=== PATIENT | male | born 1950 | race Caucasian/White ===

== ENCOUNTER → 2016-07-26 | Outpatient (REF) | payer OTHER ==
[~2016-07-26] MED LIST: /ESOM40CA PO; /HCTZ25TA PO; ACET-654 PO; AUGM875T27 PO; BISO10TA3 PO; BISO10TA6 PO; CARA1TAB2 PO; CIPR500T89 PO; COQ-10CA PO; DIGO0.12 PO; DIGO25TA PO; FLAG500T PO; LISI10TA4 PO; LISI5TAB PO; LOVA1CAP16 PO; MULTCAP PO; MULTTAB4 PO; NEUR600T PO; NEXI40GR PO; PARO40TA PO; PARO40TA2 PO; PERCOCET PO; PRAD150C PO; PROBCAP4 PO; ROXI1TAB2 PO; SYNT175T2 PO; TYLE325T5 PO; VITA100T86 PO; mylicon PO
[2016-07-26 12:07] LABS: BASO % 0.6 % (0.0-1.0); EOS # 0.1 K/mm3 (0.0-0.50); LARGE UNSTAINED CELL # 0.2 K/mm3 (0.0-0.4); LARGE UNSTAINED CELL % 3.3 % (0.0-4.0); LYMPH # 3.3 K/mm3 (1.5-4.5); LYMPH % 48.3 % (24.0-44.0); MEAN CORPUSCULAR HEMOGLOBIN 28.1 pg (27.0-33.0); MEAN CORPUSCULAR HGB CONC 33.5 g/dl (32.0-36.5); MEAN CORPUSCULAR VOLUME 83.9 fl (80.0-96.0); MONO # 0.7 K/mm3 (0.0-0.8); MONO % 11.2 % (0.0-5.0); NEUTROPHILS # 2.2 K/mm3 (1.8-7.7); NEUTROPHILS % 34.5 % (36.0-66.0); PLATELET COUNT, AUTOMATED 232 k/mm3 (150-450); RED CELL DISTRIBUTION WIDTH 13.2 % (11.5-14.5); WHITE BLOOD COUNT 6.4 K/mm3 (4.0-10.0)
[2016-07-26 12:26] LABS: ALBUMIN/GLOBULIN RATIO 1.14 (1.00-1.93); ALKALINE PHOSPHATASE 65 U/L (45-117); ALT/SGPT 71 U/L (12-78); ANION GAP 11 MEQ/L (8-16); AST/SGOT 54 U/L (15-37); BILIRUBIN,TOTAL 0.7 MG/DL (0.2-1.0); BLOOD UREA NITROGEN 11 MG/DL (7-18); CALCIUM LEVEL 8.2 MG/DL (8.8-10.2); CARBON DIOXIDE LEVEL 27 MEQ/L (21-32); CHLORIDE LEVEL 101 MEQ/L (98-107); CHOLESTEROL LEVEL 148 MG/DL (<200); CREATININE FOR GFR 0.95 MG/DL (0.70-1.30); FREE T4 1.54 NG/DL (0.76-1.46); GLOMERULAR FILTRATION RATE > 60.0 (>49); GLUCOSE, FASTING 114 MG/DL (80-110); POTASSIUM SERUM 3.9 MEQ/L (3.5-5.1); SODIUM LEVEL 139 MEQ/L (136-145); TOTAL PROTEIN 7.5 GM/DL (6.4-8.2); TRIGLYCERIDES LEVEL 196 MG/DL (<150)
== END ==
LOC: M SFHCCLAY 06:51
PROVIDERS: ATTEND Family Medicine
DX: K50.119 Crohn's disease of large intestine with unspecified complications (principal); E03.9 Hypothyroidism, unspecified; E78.2 Mixed hyperlipidemia; Z12.5 Encounter for screening for malignant neoplasm of prostate

== ENCOUNTER → 2016-07-27 | Outpatient (CLI) | payer OTHER ==
--- NOTE | 2016-07-27 12:25 | REP ---
ABDOMINAL SERIES: Supine and erect views of the abdomen demonstrate no free air and no definite evidence of small bowel obstruction. Air is scattered throughout the GI tract. Air is seen in nondistended small bowel loops which do not appear to be significantly dilated. Multiple phleboliths are seen in the pelvis. Chronic sclerotic density in a left iliac bone probably represents a bone island, unchanged since prior study of 12/19/2012. Metallic clips are seen in the right upper quadrant. An accompanying view of the chest demonstrates no acute infiltrate. Heart is normal in size. IMPRESSION: Nonspecific bowel gas pattern with no compelling evidence for small bowel obstruction. No free air. Lungs are clear.
== END ==
LOC: M CLY 11:27
PROVIDERS: ATTEND Surgery
DX: G89.18 Other acute postprocedural pain (principal)

== ENCOUNTER → 2016-08-08 | Outpatient (REF) | payer OTHER | LOC: M LAB REF 11:17 | PROVIDERS: ATTEND Internal Medicine Gastroenterology | DX: A09 Infectious gastroenteritis and colitis, unspecified (principal) ==

== ENCOUNTER → 2017-03-01 | Outpatient (REF) | payer OTHER ==
[~2017-03-01] MED LIST changes: -ACET-654 PO; +ACET1TAB17 PO; +AUGM875T28 PO; +CIPR-249 PO; -CIPR500T89 PO
[2017-03-01 12:10] LABS: BASO # 0.1 10^3/uL (0.0-0.2); BASO % 0.6 % (0.0-1.0); EOS # 0.3 10^3/uL (0.0-0.50); IMMATURE GRANULOCYTE % 0.2 % (0-0); LYMPH % 47.3 % (24.0-44.0); MEAN CORPUSCULAR HEMOGLOBIN 30.2 pg (27.0-33.0); MEAN CORPUSCULAR HGB CONC 34.1 g/dl (32.0-36.5); MEAN CORPUSCULAR VOLUME 88.5 fl (80.0-96.0); MONO # 0.8 10^3/uL (0.0-0.8); MONO % 9.2 % (0.0-5.0); NEUTROPHILS # 3.3 10^3/uL (1.8-7.7); NEUTROPHILS % 39.7 % (36.0-66.0); PLATELET COUNT, AUTOMATED 259 10^3/uL (150-450); RED CELL DISTRIBUTION WIDTH 11.9 % (11.5-14.5); WHITE BLOOD COUNT 8.4 10^3/uL (4.0-10.0)
[2017-03-01 12:47] LABS: ALBUMIN 3.9 GM/DL (3.2-5.2); ALBUMIN/GLOBULIN RATIO 1.22 (1.00-1.93); ALKALINE PHOSPHATASE 54 U/L (45-117); ALT/SGPT 46 U/L (12-78); ANION GAP 7 MEQ/L (8-16); AST/SGOT 31 U/L (7-37); BILIRUBIN,TOTAL 0.4 MG/DL (0.2-1.0); BLOOD UREA NITROGEN 14 MG/DL (7-18); CALCIUM LEVEL 8.5 MG/DL (8.8-10.2); CARBON DIOXIDE LEVEL 32 MEQ/L (21-32); CHLORIDE LEVEL 102 MEQ/L (98-107); CHOLESTEROL LEVEL 182 MG/DL (<200); CREATININE FOR GFR 0.99 MG/DL (0.70-1.30); FREE T4 1.04 NG/DL (0.76-1.46); GLOMERULAR FILTRATION RATE > 60.0 (>49); GLUCOSE, FASTING 103 MG/DL (80-110); POTASSIUM SERUM 4.2 MEQ/L (3.5-5.1); SODIUM LEVEL 141 MEQ/L (136-145); TOTAL PROTEIN 7.1 GM/DL (6.4-8.2); TRIGLYCERIDES LEVEL 403 MG/DL (<150)
== END ==
LOC: M SFHCCLAY 08:25
PROVIDERS: ATTEND Family Medicine
DX: K50.119 Crohn's disease of large intestine with unspecified complications (principal); E03.9 Hypothyroidism, unspecified; E78.2 Mixed hyperlipidemia

== ENCOUNTER → 2017-10-10 | Outpatient (REF) | payer MEDICARE, OTHER ==
[2017-10-10 12:13] LABS: BASO # 0.1 10^3/uL (0.0-0.2); BASO % 0.8 % (0.0-1.0); EOS # 0.2 10^3/uL (0.0-0.50); EOS % 3.6 % (0.0-3.0); HEMATOCRIT 39.3 % (42.0-52.0); HEMOGLOBIN 13.3 g/dl (13.5-17.5); IMMATURE GRANULOCYTE % 0.2 % (0-3.0); LYMPH # 3.1 10^3/uL (1.5-4.5); LYMPH % 49.3 % (24.0-44.0); MEAN CORPUSCULAR HEMOGLOBIN 30.2 pg (27.0-33.0); MEAN CORPUSCULAR HGB CONC 33.8 g/dl (32.0-36.5); MEAN CORPUSCULAR VOLUME 89.1 fl (80.0-96.0); MONO # 0.6 10^3/uL (0.0-0.8); MONO % 9.6 % (0.0-5.0); NEUTROPHILS # 2.3 10^3/uL (1.8-7.7); NEUTROPHILS % 36.5 % (36.0-66.0); PLATELET COUNT, AUTOMATED 226 10^3/uL (150-450); RED BLOOD COUNT 4.41 10^6/uL (4.30-6.10); RED CELL DISTRIBUTION WIDTH 11.9 % (11.5-14.5); WHITE BLOOD COUNT 6.4 10^3/uL (4.0-10.0)
[2017-10-10 12:57] LABS: ALBUMIN 3.6 GM/DL (3.2-5.2); ALBUMIN/GLOBULIN RATIO 1.03 (1.00-1.93); ALKALINE PHOSPHATASE 70 U/L (45-117); ALT/SGPT 65 U/L (12-78); ANION GAP 9 MEQ/L (8-16); AST/SGOT 47 U/L (7-37); BILIRUBIN,TOTAL 0.3 MG/DL (0.2-1.0); BLOOD UREA NITROGEN 12 MG/DL (7-18); CALCIUM LEVEL 7.9 MG/DL (8.8-10.2); CARBON DIOXIDE LEVEL 29 MEQ/L (21-32); CHLORIDE LEVEL 106 MEQ/L (98-107); CHOLESTEROL LEVEL 136 MG/DL (<200); CHOLESTEROL RISK RATIO 3.487 (<5); CREATININE FOR GFR 0.88 MG/DL (0.70-1.30); GLOMERULAR FILTRATION RATE > 60.0 (>49); GLUCOSE, FASTING 92 MG/DL (70-100); HDL CHOLESTEROL 39 MG/DL (>40); LDL CHOLESTEROL 78.4 MG/DL (<100); NON-HDL-C 97 MG/DL; POTASSIUM SERUM 4.5 MEQ/L (3.5-5.1); PSA SCREENING 0.81 NG/ML (< 4.0); SODIUM LEVEL 144 MEQ/L (136-145); TOTAL PROTEIN 7.1 GM/DL (6.4-8.2); TRIGLYCERIDES LEVEL 93 MG/DL (<150)
== END ==
LOC: M SFHCCLAY 08:59
DX: Z12.5 Encounter for screening for malignant neoplasm of prostate (principal); E78.2 Mixed hyperlipidemia; I11.9 Hypertensive heart disease without heart failure; K51.818 Other ulcerative colitis with other complication; E89.0 Postprocedural hypothyroidism
CPT/HCPCS: 84443

== ENCOUNTER → 2018-05-11 | Outpatient (REF) | payer MEDICARE, OTHER ==
[~2018-05-11] MED LIST changes: -ACET1TAB17 PO; +ACET1TAB55 PO
[2018-05-11 13:10] LABS: ALT/SGPT 54 U/L (12-78); BILIRUBIN,TOTAL 0.3 MG/DL (0.2-1.0); BLOOD UREA NITROGEN 15 MG/DL (7-18); CALCIUM LEVEL 8.2 MG/DL (8.8-10.2); CARBON DIOXIDE LEVEL 29 MEQ/L (21-32); CHLORIDE LEVEL 101 MEQ/L (98-107); CREATININE FOR GFR 0.95 MG/DL (0.70-1.30); GLOMERULAR FILTRATION RATE > 60.0 (>49); GLUCOSE, FASTING 106 MG/DL (70-100); POTASSIUM SERUM 4.2 MEQ/L (3.5-5.1); SODIUM LEVEL 139 MEQ/L (136-145); TOTAL PROTEIN 7.7 GM/DL (6.4-8.2)
== END ==
LOC: M SFHCCLAY 08:10
PROVIDERS: ATTEND Family Medicine
DX: I10 Essential (primary) hypertension (principal); E03.9 Hypothyroidism, unspecified

== ENCOUNTER → 2018-06-18 | Outpatient (REF) | payer MEDICARE, OTHER | LOC: M SFHCCLAY 10:40 | PROVIDERS: ATTEND Family Medicine | DX: E89.0 Postprocedural hypothyroidism (principal) ==

== ENCOUNTER → 2018-11-06 | Outpatient (REF) | payer MEDICARE, OTHER ==
[~2018-11-06] MED LIST changes: -/ESOM40CA PO; -/HCTZ25TA PO; -BISO10TA3 PO; +BISO10TA4 PO; +HYDR-3644 PO; +NEXI1CAP3 PO; +OXYC1TAB23 PO; +PRAD150C6 PO
[2018-11-06 13:02] LABS: ALBUMIN 3.7 GM/DL (3.2-5.2); ALT/SGPT 49 U/L (12-78); BILIRUBIN,TOTAL 0.4 MG/DL (0.2-1.0); BLOOD UREA NITROGEN 12 MG/DL (7-18); CALCIUM LEVEL 7.9 MG/DL (8.8-10.2); CARBON DIOXIDE LEVEL 27 MEQ/L (21-32); CHLORIDE LEVEL 106 MEQ/L (98-107); CHOLESTEROL LEVEL 141 MG/DL (<200); CREATININE FOR GFR 0.86 MG/DL (0.70-1.30); GLOMERULAR FILTRATION RATE > 60.0 (>49); GLUCOSE, FASTING 100 MG/DL (70-100); HDL CHOLESTEROL 37 MG/DL (>40); LDL CHOLESTEROL 83 MG/DL (<100); NON-HDL-C 104 MG/DL; POTASSIUM SERUM 3.7 MEQ/L (3.5-5.1); SODIUM LEVEL 142 MEQ/L (136-145); THYROID STIMULATING HORMONE 0.072 uIU/ML (0.358-3.740); TOTAL PROTEIN 7.3 GM/DL (6.4-8.2); TRIGLYCERIDES LEVEL 107 MG/DL (<150)
== END ==
LOC: M SFHCCLAY 08:31
PROVIDERS: ATTEND Family Medicine
DX: I11.9 Hypertensive heart disease without heart failure (principal); E78.2 Mixed hyperlipidemia; E89.0 Postprocedural hypothyroidism; Z12.5 Encounter for screening for malignant neoplasm of prostate
CPT/HCPCS: 80053; 80061; 84443; G0103; G0463

== ENCOUNTER → 2018-11-07 | Outpatient (CLI) | payer MEDICARE, OTHER ==
[~2018-11-07] MED LIST changes: +BISO10TA3 PO; -BISO10TA4 PO
--- NOTE | 2018-11-07 08:41 | REP ---
Thoracic spine three views: Comparison is a PA and lateral chest dated 04/29/2014. Vertebral body heights, interspacing alignment are normal and unchanged. There are bridging osteophytes anteriorly at the mid thoracic spine as an interval change compatible with mid thoracic spine. Multilevel degenerative disc disease. The pedicles are unremarkable. Impression: Mid thoracic spine multilevel degenerative disc disease. Otherwise, negative thoracic spine. Electronically Signed by Saji Laughlin MD 11/07/2018 08:32 A
== END ==
LOC: M CLY 08:09
PROVIDERS: ATTEND Family Medicine
DX: M51.24 Other intervertebral disc displacement, thoracic region (principal)

== ENCOUNTER 2018-11-29 22:47 | Emergency (ER) | payer MEDICARE, OTHER ==
[~2018-11-29] VITALS: Ht 162.6 cm; Wt 86.0 kg
[~2018-11-29 22:47] MED LIST changes: -BISO10TA3 PO; +BISO10TA4 PO
[2018-11-29] MEDS ORDERED: METOPROLOL 5 MG/5 ML VIAL ONE (22:48)
[2018-11-29] MEDS ORDERED: METOPROLOL TART 25 MG TABLET ONE (22:48)
[2018-11-29] MEDS ORDERED: NITROGLYCERIN 2% OINT 1 GM *U/D* PKT As Ordered ONE (22:57)
[2018-11-29] MEDS ORDERED: ASPIRIN 81 MG CHEW TABLET PO ONE (23:00)
[2018-11-29 23:02] LABS: BASO % 0.5 % (0.0-1.0); EOS # 0.2 10^3/uL (0.0-0.50); EOS % 2.1 % (0.0-3.0); HEMATOCRIT 36.2 % (42.0-52.0); HEMOGLOBIN 11.3 g/dl (13.5-17.5); LYMPH # 2.7 10^3/uL (1.5-4.5); LYMPH % 33.6 % (24.0-44.0); MEAN CORPUSCULAR HEMOGLOBIN 24.9 pg (27.0-33.0); MEAN CORPUSCULAR HGB CONC 31.2 g/dl (32.0-36.5); MEAN CORPUSCULAR VOLUME 79.7 fl (80.0-96.0); MONO # 0.6 10^3/uL (0.0-0.8); NEUTROPHILS # 4.5 10^3/uL (1.8-7.7); NEUTROPHILS % 56.6 % (36.0-66.0); PLATELET COUNT, AUTOMATED 268 10^3/uL (150-450); RED BLOOD COUNT 4.54 10^6/uL (4.30-6.10)
[2018-11-29 23:13] LABS: INR 1.29; PROTHROMBIN TIME 15.8 SECONDS (11.8-14.0)
[2018-11-29 23:30] LABS: ALBUMIN 3.3 GM/DL (3.2-5.2); ALT/SGPT 43 U/L (12-78); BILIRUBIN,TOTAL 0.2 MG/DL (0.2-1.0); BLOOD UREA NITROGEN 10 MG/DL (7-18); CALCIUM LEVEL 7.5 MG/DL (8.8-10.2); CARBON DIOXIDE LEVEL 27 MEQ/L (21-32); CHLORIDE LEVEL 107 MEQ/L (98-107); CK-MB VALUE MASS 2.8 NG/ML (<3.6); CPK CREATINE PHOSPHOKINASE 187 U/L (39-308); CREATININE FOR GFR 0.97 MG/DL (0.70-1.30); GLOMERULAR FILTRATION RATE > 60.0 (>49); GLUCOSE, FASTING 149 MG/DL (70-100); LIPASE 229 U/L (73-393); NT-PRO BNP 367 PG/ML (<125); POTASSIUM SERUM 3.3 MEQ/L (3.5-5.1); SODIUM LEVEL 146 MEQ/L (136-145); TOTAL PROTEIN 6.6 GM/DL (6.4-8.2); TROPONIN I 0.08 NG/ML (< 0.10)
[2018-11-29] MEDS: METOPROLOL 5 MG/5 ML VIAL IV SCH ×3 (23:39→23:52)
[2018-11-29] MEDS ORDERED: FUROSEMIDE 40 MG/4 ML VIAL (J1940) IV ONE (23:45)
[2018-11-29] MEDS ORDERED: NITROGLYCERIN 2% OINT 1 GM *U/D* PKT TOP ONE (23:45)
[2018-11-29] MEDS ORDERED: HYDR12.55 PO (23:54)
[2018-11-30 00:09] VITALS: BP 125/73
[2018-11-30 00:12] VITALS: BP 125/73
[2018-11-30] MEDS ORDERED: METOPROLOL TART 25 MG TABLET PO ONE (00:15)
--- NOTE | 2018-11-30 09:08 | REP ---
PORTABLE CHEST X-RAY: Sitting AP view. HISTORY: Chest pain. COMPARISON CHEST X-RAY: July 27, 2016. FINDINGS: EKG monitoring electrodes and oxygen delivery tubing are seen. There is fissural thickening. Heart is not felt to be enlarged. There is increased density above the minor fissure and I cannot exclude an early right upper lobe infiltrate. Pleural angles are sharp. IMPRESSION: Possible right upper lobe infiltrate. Fissural thickening on the right. Otherwise negative. Electronically Signed by Sonny Arriola MD 11/30/2018 09:20 A
== END 2018-11-30 00:15 | disposition short-term general hospital (02) ==
LOC: M ED 22:47
DX: I21.3 ST elevation (STEMI) myocardial infarction of unspecified site (principal); I48.91 Unspecified atrial fibrillation; I50.9 Heart failure, unspecified; I10 Essential (primary) hypertension; Z82.49 Family history of ischemic heart disease and other diseases of the circulatory system; Z79.899 Other long term (current) drug therapy; Z88.8 Allergy status to other drugs, medicaments and biological substances
CPT/HCPCS: 36415; 36600; 71045; 80047; 80053; 82550; 82553; 82803; 83690; 83880; 84484; 85025; 85610; 93041; 96374; 96375; 99291; J1940

== ENCOUNTER → 2018-12-13 | Outpatient (REF) | payer MEDICARE, OTHER ==
[~2018-12-13] MED LIST changes: +HYDR12.55 PO
[2018-12-13 14:03] LABS: INR 2.25; PROTHROMBIN TIME 24.7 SECONDS (11.8-14.0)
== END ==
LOC: M SHH 13:15
PROVIDERS: ATTEND Physician Assistant Surgical
DX: I21.02 ST elevation (STEMI) myocardial infarction involving left anterior descending coronary artery (principal)

== ENCOUNTER → 2018-12-24 | Outpatient (REF) | payer MEDICARE, OTHER ==
[2018-12-24 19:14] LABS: INR 1.52
== END ==
LOC: M LABDRAW1 17:53
PROVIDERS: ATTEND Internal Medicine Cardiovascular Disease
DX: I48.2 Chronic atrial fibrillation (principal)

== ENCOUNTER → 2018-12-28 | Outpatient (CLI) | payer MEDICARE, OTHER ==
--- NOTE | 2018-12-28 11:18 | REP ---
CHEST X-RAY: Two views. HISTORY: Atrial fibrillation, coronary artery disease, CHF. COMPARISON STUDY: November 29, 2018. FINDINGS: In the interval since the prior exam, the patient has undergone median sternotomy. A left atrial appendage clamp is visible along the left heart border. The heart is increased in size since the prior study with cardiothoracic ratio measuring 54%. There is blunting of the pleural angles bilaterally consistent with bilateral pleural effusions, left significantly larger than right. Pulmonary vascular cephalization is again seen unchanged. IMPRESSION: Cardiomegaly small bilateral pleural effusions, left greater than right consistent with CHF with vascular cephalization. Interval sternotomy. Electronically Signed by Sonny Arriola MD 12/28/2018 11:30 A
== END ==
LOC: M SMT 09:49
PROVIDERS: ATTEND Internal Medicine Cardiovascular Disease
DX: I48.91 Unspecified atrial fibrillation (principal); I25.10 Atherosclerotic heart disease of native coronary artery without angina pectoris; I50.9 Heart failure, unspecified; J90 Pleural effusion, not elsewhere classified

== ENCOUNTER → 2019-01-01 | Outpatient (REF) | payer MEDICARE, OTHER ==
[~2019-01-01] MED LIST changes: +ATOR80TA59 PO; +HUMI20KI SC; +K-TA10TA PO; +LASI80TA3 PO; +LEXA5TAB13 PO; +MAGN1TAB39 PO; +METO25TA4 PO; +PLAV1TAB2 PO
[2019-01-01 16:36] LABS: BASO # 0.1 10^3/uL (0.0-0.2); BASO % 0.4 % (0.0-1.0); EOS # 0.6 10^3/uL (0.0-0.5); EOS % 5.2 % (0.0-3.0); HEMATOCRIT 31.5 % (42.0-52.0); HEMOGLOBIN 9.4 g/dl (13.5-17.5); LYMPH % 26.5 % (24.0-44.0); MEAN CORPUSCULAR HGB CONC 29.8 g/dl (32.0-36.5); MEAN CORPUSCULAR VOLUME 80.6 fl (80.0-96.0); MONO # 0.8 10^3/uL (0.0-0.8); MONO % 7.1 % (0.0-5.0); NEUTROPHILS # 6.9 10^3/uL (1.5-8.5); NEUTROPHILS % 60.3 % (36.0-66.0); PLATELET COUNT, AUTOMATED 438 10^3/uL (150-450); RED BLOOD COUNT 3.91 10^6/uL (4.30-6.10); WHITE BLOOD COUNT 11.4 10^3/uL (4.0-10.0)
[2019-01-01 17:03] LABS: ALBUMIN 3.6 GM/DL (3.2-5.2); ALT/SGPT 35 U/L (12-78); BILIRUBIN,TOTAL 0.4 MG/DL (0.2-1.0); BLOOD UREA NITROGEN 13 MG/DL (7-18); CALCIUM LEVEL 8.2 MG/DL (8.8-10.2); CARBON DIOXIDE LEVEL 31 MEQ/L (21-32); CHLORIDE LEVEL 101 MEQ/L (98-107); GLOMERULAR FILTRATION RATE > 60.0 (>49); GLUCOSE, FASTING 120 MG/DL (70-100); POTASSIUM SERUM 3.9 MEQ/L (3.5-5.1); SODIUM LEVEL 140 MEQ/L (136-145); TOTAL PROTEIN 7.5 GM/DL (6.4-8.2)
== END ==
LOC: M SFHCCLAY 13:49
PROVIDERS: ATTEND Family Medicine
DX: E89.0 Postprocedural hypothyroidism (principal); Z95.1 Presence of aortocoronary bypass graft
CPT/HCPCS: 80053; 83735; 85025; G0463

== ENCOUNTER → 2019-02-04 | Outpatient (CLI) | payer MEDICARE, OTHER ==
[~2019-02-04] MED LIST changes: +ISOVUE-370 76% 100ML VIAL (Q9967) As Ordered ONE
[2019-02-04 11:19] LABS: BLOOD UREA NITROGEN 12 MG/DL (7-18); CALCIUM LEVEL 8.1 MG/DL (8.8-10.2); CARBON DIOXIDE LEVEL 30 MEQ/L (21-32); CHLORIDE LEVEL 102 MEQ/L (98-107); CREATININE FOR GFR 0.83 MG/DL (0.70-1.30); GLOMERULAR FILTRATION RATE > 60.0 (>49); GLUCOSE, FASTING 106 MG/DL (70-100); NT-PRO BNP 906 PG/ML (<125); POTASSIUM SERUM 3.5 MEQ/L (3.5-5.1); SODIUM LEVEL 139 MEQ/L (136-145)
--- NOTE | 2019-02-04 14:47 | REP ---
REASON FOR EXAM: Dyspnea. COMPARISON: None. CONTRAST: 100 mL Isovue 370. There is mediastinal adenopathy. There is a large pretracheal lymph node which measures 1.7 cm in short axis dimension. Borderline right hilar lymph nodes are noted. There are small bilateral pleural effusions. There is evidence of 4-chamber cardiac enlargement. There is no pericardial effusion. The imaged upper abdomen shows a 1.6 cm sized left adrenal gland nodule with density readings too high to confirm benignity, however, this nodule was seen on 08/26/[address] scan and the density readings then were consistent with benignity. The nodules has increased somewhat in size from that exam, however. Bone window technique throughout the exam shows the osseous structures to be within normal limits for the patient's age. Evaluation of the lung cash show respiratory motion artifact throughout obscuring the fine detail. There is a patchy opacity in the right middle lobe with curvilinear densities seen in the lingula and lower lobes. An area of consolidation is seen in the left lower lobe with air bronchograms. IMPRESSION: 1. There is adenopathy as described above, which needs to be correlated clinically with appropriate followup. 2. Small bilateral pleural effusions, etiology uncertain. 3. Bilateral lung field opacities as described above. The patchy right middle lobe opacity may be secondary to pneumonia. This should be correlated clinically with appropriate followup. The are of consolidation in the left lower lobe is likely secondary to compressive subsegmental atelectatic changes due to the effusion. This needs to be correlated clinically as infectious etiology cannot be ruled out. 4. Other lung field opacities are probably fibrotic and/or subsegmental atelectatic changes. 5. Left adrenal gland nodule as described above. 6. Other findings as described above. Electronically Signed by Enrike Huertas DO 02/04/2019 04:43 P
== END ==
LOC: M RAD 10:05
PROVIDERS: ATTEND Internal Medicine Cardiovascular Disease
DX: J90 Pleural effusion, not elsewhere classified (principal); R06.02 Shortness of breath
CPT/HCPCS: 36415; 71260; 80048; 83880; Q9967

== ENCOUNTER 2019-02-11 11:16 | Outpatient (RCR) | payer MEDICARE, OTHER ==
--- NOTE | 2019-01-17 09:41 | CARECAPL ---
Assessment Account #s: Initial Assessment General Diagnoses: CABG, NSTEMI Date of event: Dec 05, 2018 Allergies: Coded Allergies: pseudoephedrine (Verified Adverse Reaction, Intermediate, DIZZINESS, 11/29/18) aspirin (Verified Adverse Reaction, Unknown, GI BLEEDING, 11/29/18) Date Entered Program: Jan 17, 2019 Risk strat for cardiac event: High Exercise Assessment: Initial Assessment Stages of change: Pre-contemplation, Contemplate Stress Test: MET Level (6) Exercise Prescription Plan Educate cardiovascular disease and increased endurance, strength and flexibility through monitored exercise program. Modalities initiated: Treadmill (will add speed 2.0 for 8 minutes), Nustep (will add resistance of 1 for 10 minutes), Arm Aerometer (will add resistance of 1 for 5 minutes), Dumbells ( will add 1 lb 1 set 8 reps), Recumbent Bike (will add resistance of 1 for 5 minutes) Frequency: 3 Duration (Minutes) 30 - 60 minutes total exercise a day. 15 - 20 work intervals in minutes. PRN rest intervals in minutes. Functional Capacity Goal Sustained Metabolic Equivalent of a task (MET) goal of 2.5-3.5 for 15-20 minutes. Intensity: 3-Moderate Progression (METS) Increase by: 0.5 METS every: 3-5 sessions Angina with ex: No Target Heart Rate Rest +35-40 per beta carolyn therapy Resistance Training: Yes Weight (pounds): 1 Reps: 6-8 Medications Scheduled Adalimumab (Humira), 0.2 ML SC Q2WK, (Reported) Atorvastatin Calcium (Atorvastatin Calcium), 80 MG PO DAILY, (Reported) Clopidogrel Bisulfate (Plavix), 75 MG PO DAILY, (Reported) Dabigatran Etexilate Mesylate (Pradaxa), 150 MG PO BID, (Reported) Digoxin (Digoxin), 0.125 MG PO DAILY, (Reported) Escitalopram Oxalate (Lexapro), 5 MG PO DAILY, (Reported) Esomeprazole Magnesium (Nexium), 40 MG PO DAILY, (Reported) Furosemide (Lasix), 80 MG PO DAILY, (Reported) Levothyroxine Sodium (Synthroid), 175 MCG PO DAILY, (Reported) Magnesium Chloride (Magnesium Chloride), 64 MG PO BID, (Reported) Metoprolol Tartrate (Metoprolol Tartrate), 50 MG PO BID, (Reported) Multivitamin (Multivitamins), 1 CAP PO DAILY, (Reported) Potassium Chloride (K-Tab ER), 10 MEQ PO DAILY, (Reported) Discontinued Medications Bisoprolol/Hydrochlorothiazide (Bisoprolol-Hctz 10-6.25 mg Tab), 1 TAB PO DAILY, (Reported) Discontinued Reason: Pt states not taking Hydrochlorothiazide (Hydrochlorothiazide), 12.5 MG PO DAILY, (Reported) Discontinued Reason: Pt states not taking Lisinopril (Lisinopril), 10 MG PO DAILY, (Reported) Discontinued Reason: Pt states not taking Intervention Home exercise: Type (walking), Frequency (4 times a week), Duration (one-mile) Resistance Training: No Education Goals Met: No Target Goals Individual exercise Rx (1) BP 140/90 or 130/80 if DM or CKD (1) Aerobic active 30+min 5 days per week (1) Nutrition Date: Jan 17, 2019 Assessment: Initial Assessment Stages of change: Contemplate Lipids Total Cholesterol (141), High Density Lipids (HDL) (37), Low Density Lipids (LDL) (83), Triglycerides (107) Lipid- med/supplement Atorvastatin Diabetes Diabetes: No Weight Management Weight (lbs): 191.4 Height (inches): 64 Waist Circumference (Inches): 42 BMI: 32.78 Weight goal: 170 Special Diet: mediteranean diet Vitamin/Supplements: Multivitamin Alcohol: weekly Alcohol Type: beer, wine Alcohol Amount: 2 Diet Access Tool: Rate your plate Score: 52 Intervention Imcu Nurse Consult: No Nurse/patient discussion: No Dietary Goals Healthier food choices Diet Class: No Referral to Diabetes education: No Referral to lipid clinic: No Referral to weight mangement p: No Education Goals Met: No Target goal LDL-C<100 if triglycerides are >200 Non-HDL-C should be <130 (1) LDL-C<70 for high risk patients (4) HbA1c<7% (1) BMI<25 Waist cir<40in M/<35in F (1) Education Date: Jan 17, 2019 Assessment: Initial Assessment Knowledge Test Score: 8 Stages of change: Contemplate Family Support: Yes Tobacco use: No Quit: never smoked Education Goals Met: No Target Goals Complete cessation of tobacco use (1). Psychosocial Date: Jan 17, 2019 Assessment: Initial Assessment Psych Test (Initial/Discharge) Tool Used: CESD Score: 2 Stages of change: Contemplate Intervention Physician Consult: No Physician Referral: No Psychotropic medication Lexapro Stress Management Class: No Uses Stress Management Skills: No Education Goals Met: No Target Goal Assess presence or absence of depression using a valid screening tool (1). Maximize coping skills (2). Positive support system (2). Patient/Program Goal Preventative Medication: Yes Clopidogrel, Yes Beta blockade, Yes Statin/OTR lipid Lowering, Yes Other (pradaxa) Fall Risk Assess: Yes (negative for fall risk) Provider Assessment Provider Assessment: Proceed with rehab Rossana Sterling RN Jan 17, 2019 09:41
--- NOTE | 2019-02-08 09:13 | CARECAPL ---
Assessment Account #s: Re-Assessment I General Diagnoses: CABG, NSTEMI Date of event: Dec 05, 2018 Physician: Denzel Kamara MD Allergies: Coded Allergies: pseudoephedrine (Verified Adverse Reaction, Intermediate, DIZZINESS, 11/29/18) aspirin (Verified Adverse Reaction, Unknown, GI BLEEDING, 11/29/18) Date Entered Program: Jan 17, 2019 Risk strat for cardiac event: High Exercise Date: Feb 01, 2019 Assessment: Re-Assessment I Stages of change: Preperation Exercise Prescription Plan educate on cardiovascular disease and increase endurance, strength and flexibility through a monitored exercise program. Modalities initiated: Treadmill (speed 2.0 incline 2.0 for 10 minutes mets 3.08 RPE 2.5), Nustep (resistance of 3 for 15 minutes mets 2.6 RPE 2.5), Arm Aerometer (Resistance of 2.5 for 10 minutes Mets 3.3 RPE 3), Dumbells (5lbs 2 sets 15 reps RPE 3.5), Recumbent Bike (Resistance of 2 for 8 minutes Mets 5.1 RPE 3) Frequency: 3 Duration (Minutes) 30 - 60 minutes total exercise a day. 15 - 20 work intervals in minutes. PRN rest intervals in minutes. Functional Capacity Goal Sustained Metabolic Equivalent of a task (MET) goal of 4.5-5.5 for 15-20 mi nutes. Intensity: 3-Moderate Progression (METS) Increase by: 0.5 METS every: 3-5 sessions Angina with ex: No Target Heart Rate Rest + 35-40 per beta carolyn therapy. Resistance Training: Yes Weight (pounds): 5 Reps: 12-15 Hypertension: No Hypertension controlled with: Medication Resting 128/82 Peak Exercise BP 130/90 Meds metoprolol Medications Scheduled Adalimumab (Humira), 0.2 ML SC Q2WK, (Reported) Atorvastatin Calcium (Atorvastatin Calcium), 80 MG PO DAILY, (Reported) Clopidogrel Bisulfate (Plavix), 75 MG PO DAILY, (Reported) Dabigatran Etexilate Mesylate (Pradaxa), 150 MG PO BID, (Reported) Digoxin (Digoxin), 0.125 MG PO DAILY, (Reported) Escitalopram Oxalate (Lexapro), 5 MG PO DAILY, (Reported) Esomeprazole Magnesium (Nexium), 40 MG PO DAILY, (Reported) Furosemide (Lasix), 80 MG PO DAILY, (Reported) Levothyroxine Sodium (Synthroid), 175 MCG PO DAILY, (Reported) Magnesium Chloride (Magnesium Chloride), 64 MG PO BID, (Reported) Metoprolol Tartrate (Metoprolol Tartrate), 50 MG PO BID, (Reported) Multivitamin (Multivitamins), 1 CAP PO DAILY, (Reported) Potassium Chloride (K-Tab ER), 10 MEQ PO DAILY, (Reported) Intervention Education: Self pulse (Patient demonstates independence.), Ex safety (Patient states to drink plenty of water and loose comfortable clothing when exercising. ), S/S to report (Patient states he should call Md with chest pain, N/V and excessive sweating. ), Low NA diet (Patient states not to add sodium to his food this will keep his BP low and reduce sodium retention), BP medication (Patient states metoprolol lows BP and heart rate), RPE Scale (demonstrates independence), Equipment orientation (demonstrates independence), warm up/cool down (demonstrates independence), Understand BP (Patient understands that his BP should be lower than 130/80.), Physical Active (Patient states he needs to stay active to increase the strength of his heart. ) Education Goals Met: No (will continue to educate. ) Target Goals Individual exercise Rx (1) BP 140/90 or 130/80 if DM or CKD (1) Aerobic active 30+min 5 days per week (1) Nutrition Date: Feb 08, 2019 Assessment: Re-Assessment I Stages of change: Preperation Med Change: No Diabetes Diabetes: No Current Weight (pounds): 190.8 Weight Goal will try to lose 2lbs this month by eating more vegetable and whole grains. Intervention Touch Up Painter Consult: No Nurse/patient discussion: No Diet Class: No Education Goals Met: No (will continue to educate throughout program. ) Target goal LDL-C<100 if triglycerides are >200 Non-HDL-C should be <130 (1) LDL-C<70 for high risk patients (4) HbA1c<7% (1) BMI<25 Waist cir<40in M/<35in F (1) Education Date: Feb 08, 2019 Assessment: Re-Assessment I Stages of change: Preperation Family Support: Yes Tobacco use: No Education Goals Met: No (will continue to educate throughout program. ) Target Goals Complete cessation of tobacco use (1). Psychosocial Date: Feb 08, 2019 Assessment: Re-Assessment I Stages of change: Preperation Stress Management Class: No Uses Stress Management Skills: No Education Goals Met: No (will continue to educate throughout program.) Target Goal Assess presence or absence of depression using a valid screening tool (1). Maximize coping skills (2). Positive support system (2). Patient/Program Goal Preventative Medication: Yes Clopidogrel, Yes Beta blockade, Yes Statin/OTR lipid Lowering, Yes Other (digoxin.) Fall Risk Assess: Yes (no fall risk) Provider Assessment Session Number: 6 Provider Assessment: Proceed with rehab (Progressing well. Was recently diagnosis with Pneumonia. Attendance had been well. ) Rossana Sterling RN Feb 08, 2019 09:13
[~2019-02-11 11:16] MED LIST changes: -ISOVUE-370 76% 100ML VIAL (Q9967) As Ordered ONE
== END 2019-02-14 ==
LOC: M CR 11:16
PROVIDERS: ATTEND Internal Medicine Cardiovascular Disease
DX: Z95.1 Presence of aortocoronary bypass graft (principal)

== ENCOUNTER 2019-03-13 10:23 | Outpatient (RCR) | payer MEDICARE, OTHER ==
--- NOTE | 2019-03-04 11:05 | CARECAPL ---
Assessment Account #s: Re-Assessment II General Diagnoses: CABG, NSTEMI Date of event: Dec 05, 2018 Physician: Denzel Kamara MD Allergies: Coded Allergies: pseudoephedrine (Verified Adverse Reaction, Intermediate, DIZZINESS, 11/29/18) aspirin (Verified Adverse Reaction, Unknown, GI BLEEDING, 11/29/18) Date Entered Program: Jan 17, 2019 Risk strat for cardiac event: High Exercise Date: Mar 04, 2019 Assessment: Re-Assessment II Stages of change: Preperation Exercise Prescription Modalities initiated: Treadmill (2.2/.0. MTS 2.69 RPE 2.5 10 MINUTES), Nustep (L2 MTS 3.7 RPE 2 15 MINUTES), Arm Aerometer (2.5 MTS 2.5 RPE 3 10 MINUTES), Dumbells, Recumbent Bike Frequency: 2-3 (R1 MTS 2.6 RPE 2.5 5 MINUTES) Duration (Minutes) 30 - 60 minutes total exercise a day. 15 - 20 work intervals in minutes. PRN rest intervals in minutes. Functional Capacity Goal Sustained Metabolic Equivalent of a task (MET) goal of 4.5-5.5 for 15-20 minutes. Progression (METS) Increase by: METS every: sessions Resistance Training: Yes Weight (pounds): 5 Reps: 6-8 Hypertension: Yes Hypertension controlled with: Medication Resting 104/80 Peak Exercise BP 120/78 Meds SEE BELOW Medications Scheduled Adalimumab (Humira), 0.2 ML SC Q2WK, (Reported) Atorvastatin Calcium (Atorvastatin Calcium), 80 MG PO DAILY, (Reported) Clopidogrel Bisulfate (Plavix), 75 MG PO DAILY, (Reported) Dabigatran Etexilate Mesylate (Pradaxa), 150 MG PO BID, (Reported) Digoxin (Digoxin), 0.125 MG PO DAILY, (Reported) Escitalopram Oxalate (Lexapro), 5 MG PO DAILY, (Reported) Esomeprazole Magnesium (Nexium), 40 MG PO DAILY, (Reported) Furosemide (Lasix), 80 MG PO DAILY, (Reported) Levothyroxine Sodium (Synthroid), 175 MCG PO DAILY, (Reported) Magnesium Chloride (Magnesium Chloride), 64 MG PO BID, (Reported) Metoprolol Tartrate (Metoprolol Tartrate), 50 MG PO BID, (Reported) Multivitamin (Multivitamins), 1 CAP PO DAILY, (Reported) Potassium Chloride (K-Tab ER), 10 MEQ PO DAILY, (Reported) Current BP 116/78 POST EXERCISE Med Change: No Education Goals Met: Yes (SEE PRIOR ITP FOR EDUCATION COVERED) Target Goals Individual exercise Rx (1) BP 140/90 or 130/80 if DM or CKD (1) Aerobic active 30+min 5 days per week (1) Nutrition Date: Mar 04, 2019 Assessment: Re-Assessment II Stages of change: Preperation Med Change: No Current Weight (pounds): 192.4 Intervention Diet Class: No (WILL SEE DURING PROGRAM) Education Eating Healthy (SPOKE WITH PT ABOUT NA, AND WT REDUCTION) Education Goals Met: No (PROGRESSING TOWARD GOALS) Target goal LDL-C<100 if triglycerides are >200 Non-HDL-C should be <130 (1) LDL-C<70 for high risk patients (4) HbA1c<7% (1) BMI<25 Waist cir<40in M/<35in F (1) Education Date: Mar 04, 2019 Assessment: Re-Assessment II Intervention Education: CAD (RISK FACTORS REVIEWED, NEED TO LOWER BMI, LIPID PANEL, NEED TO EXERCISE), Angina S/S (IMPORTANCE OF REPORTING CHEST PAIN/DISCOMFORT, DIZZINESS TO DR OR NURSE) Education Goals Met: No (PROGRESSING TOWARD GOALS) Target Goals Complete cessation of tobacco use (1). Psychosocial Date: Mar 04, 2019 Assessment: Re-Assessment II Stress Management Class: Yes (EDUCATION ABOUT NEED TO REDUCE STRESS IN LIFE) Uses Stress Management Skills: No (WILL NEED MORE EDUCATION) Education Goals Met: No Target Goal Assess presence or absence of depression using a valid screening tool (1). Maximize coping skills (2). Positive support system (2). Provider Assessment Session Number: 9 Provider Assessment: No changes (WE WILL ASK FOR EXTENSION D/T PULMONARY PROBLEMS DURING PROGRAM) Verónica Christina RN Mar 04, 2019 11:05
== END 2019-03-16 ==
LOC: M CR 10:23
PROVIDERS: ATTEND Internal Medicine Cardiovascular Disease
DX: Z95.1 Presence of aortocoronary bypass graft (principal)

== ENCOUNTER 2019-04-15 12:53 | Outpatient (RCR) | payer MEDICARE, OTHER ==
--- NOTE | 2019-03-25 09:42 | CARECAPL ---
Assessment Account #s: Re-Assessment II (reassessment 3) General Diagnoses: CABG, NSTEMI Date of event: Dec 05, 2018 Physician: Denzel Kamara MD Allergies: Coded Allergies: pseudoephedrine (Verified Adverse Reaction, Intermediate, DIZZINESS, 11/29/18) aspirin (Verified Adverse Reaction, Unknown, GI BLEEDING, 11/29/18) Date Entered Program: Jan 17, 2019 Risk strat for cardiac event: High Exercise Date: Mar 22, 2019 Assessment: Re-Assessment II (3) Stages of change: action Exercise Prescription Plan Educate on cardiovascular disease and increase endurance, strength, flexibility through a monitored exercise program. Modalities initiated: Treadmill (speed 2.0 incline 2.0 for 15 minutes mets 3.08 RPE 3), Nustep (resistance of 5 for 15 minutes mets 4.8 RPE 3), Arm Aerometer (resistance of 3.5 for 10 minutes mets 3.2 RPE 3.5), Dumbells (5lbs 1 set 15 reps RPE 3.5), Recumbent Bike (resistance of 2 for 9 minutes mets 3.2 RPE 3.5) Frequency: 3 Duration (Minutes) 30 - 60 minutes total exercise a day. 15 - 20 work intervals in minutes. PRN rest intervals in minutes. Functional Capacity Goal Sustained Metabolic Equivalent of a task (MET) goal of 4.5-5.5 for 15-20 minutes. Intensity: 3-Moderate Progression (METS) Increase by: 0.5 METS every: 3-5 sessions Angina with ex: No Target Heart Rate Rest +35-40 per beta carolyn therapy. Resistance Training: Yes Weight (pounds): 5 Reps: 12-15 Medications Scheduled Adalimumab (Humira), 0.2 ML SC Q2WK, (Reported) Atorvastatin Calcium (Atorvastatin Calcium), 80 MG PO DAILY, (Reported) Clopidogrel Bisulfate (Plavix), 75 MG PO DAILY, (Reported) Dabigatran Etexilate Mesylate (Pradaxa), 150 MG PO BID, (Reported) Digoxin (Digoxin), 0.125 MG PO DAILY, (Reported) Escitalopram Oxalate (Lexapro), 5 MG PO DAILY, (Reported) Esomeprazole Magnesium (Nexium), 40 MG PO DAILY, (Reported) Furosemide (Lasix), 80 MG PO DAILY, (Reported) Levothyroxine Sodium (Synthroid), 175 MCG PO DAILY, (Reported) Magnesium Chloride (Magnesium Chloride), 64 MG PO BID, (Reported) Metoprolol Tartrate (Metoprolol Tartrate), 50 MG PO BID, (Reported) Multivitamin (Multivitamins), 1 CAP PO DAILY, (Reported) Potassium Chloride (K-Tab ER), 10 MEQ PO DAILY, (Reported) Current BP 108/70 Med Change: No Education Goals Met: No (will continue to educate see all other education on prior ITP's.) Target Goals Individual exercise Rx (1) BP 140/90 or 130/80 if DM or CKD (1) Aerobic active 30+min 5 days per week (1) Nutrition Date: Mar 25, 2019 Assessment: Re-Assessment II (3) Stages of change: action Med Change: No Current Weight (pounds): 192 Intervention Shirt Sorter Consult: No Nurse/patient discussion: Yes Dietary Goals eat smaller portions and healthier choices such as more vegetables and protein. Diet Class: No Education Goals Met: No (will continue to educate and see prior ITP's for education) Target goal LDL-C<100 if triglycerides are >200 Non-HDL-C should be <130 (1) LDL-C<70 for high risk patients (4) HbA1c<7% (1) BMI<25 Waist cir<40in M/<35in F (1) Education Date: Mar 25, 2019 Stages of change: action Education Goals Met: No (will continue to educate and prior ITP's for education) Target Goals Complete cessation of tobacco use (1). Psychosocial Date: Mar 25, 2019 Stages of change: action Stress Management Class: Yes Uses Stress Management Skills: Yes Education Goals Met: No (will continue to educate and see education on prior ITP's.) Target Goal Assess presence or absence of depression using a valid screening tool (1). Maximize coping skills (2). Positive support system (2). Patient/Program Goal Preventative Medication: Yes Beta blockade, Yes Statin/OTR lipid Lowering, Yes Other (digoxinand pradaxa) Fall Risk Assess: Yes (no fall risk) Provider Assessment Session Number: 15 Provider Assessment: Proceed with rehab (patient is progressing well with cardiac rehabilitation after having pneumonia. Will ask for an extension.) Rossana Sterling RN Mar 25, 2019 09:42
--- NOTE | 2019-04-15 15:01 | CARECAPL ---
Assessment Account #s: Re-Assessment II (REASSESSMENT IV) General Diagnoses: CABG, NSTEMI Date of event: Dec 05, 2018 Physician: Denzel Kamara MD Allergies: Coded Allergies: pseudoephedrine (Verified Adverse Reaction, Intermediate, DIZZINESS, 11/29/18) aspirin (Verified Adverse Reaction, Unknown, GI BLEEDING, 11/29/18) Date Entered Program: Jan 17, 2019 Risk strat for cardiac event: High Exercise Date: Apr 15, 2019 Assessment: Re-Assessment II (REASSESSMENT IV) Stages of change: action Exercise Prescription Plan TO EDUCATE AND BUILD ENDURANCE THROUGH MONITORED EXERCISE Modalities initiated: Treadmill (METS=3.95/RPE=3.5), Nustep (METS=5.0/RPE=3.5), Arm Aerometer (METS=3.4/RPE=3.5), Dumbells (8#/RPE=2.5), Recumbent Bike (METS=4.3/RPE=4) Frequency: 3 Duration (Minutes) 30 - 60 minutes total exercise a day. 15 - 20 work intervals in minutes. PRN rest intervals in minutes. Functional Capacity Goal Sustained Metabolic Equivalent of a task (MET) goal of 4.5-5.5 for 15-20 minutes. Intensity: 3-Moderate Progression (METS) Increase by: 0.5 METS every: 5 sessions TOLERATED Angina with ex: No Target Heart Rate REST + 35-40 BASED ON BETA HERIBERTO THERAPY Resistance Training: Yes Weight (pounds): 8 Reps: 12-15 Hypertension: Yes Hypertension controlled with: Medication (METOPROLOL) Resting 124/70 Peak Exercise BP 160/90 Medications Scheduled Adalimumab (Humira), 0.2 ML SC Q2WK, (Reported) Atorvastatin Calcium (Atorvastatin Calcium), 80 MG PO DAILY, (Reported) Clopidogrel Bisulfate (Plavix), 75 MG PO DAILY, (Reported) Dabigatran Etexilate Mesylate (Pradaxa), 150 MG PO BID, (Reported) Digoxin (Digoxin), 0.125 MG PO DAILY, (Reported) Escitalopram Oxalate (Lexapro), 5 MG PO DAILY, (Reported) Esomeprazole Magnesium (Nexium), 40 MG PO DAILY, (Reported) Furosemide (Lasix), 80 MG PO DAILY, (Reported) Levothyroxine Sodium (Synthroid), 175 MCG PO DAILY, (Reported) Magnesium Chloride (Magnesium Chloride), 64 MG PO BID, (Reported) Metoprolol Tartrate (Metoprolol Tartrate), 50 MG PO BID, (Reported) Multivitamin (Multivitamins), 1 CAP PO DAILY, (Reported) Potassium Chloride (K-Tab ER), 10 MEQ PO DAILY, (Reported) Current BP 136/76 Med Change: No Intervention Resistance Training: Yes Education: Self pulse (SEE EDUCATION ON PRIOR ITP'S, WILL CONTINUE TO REINFORCE WHILE IN PROGRAM) Education Goals Met: Yes (PROGRESSING TOWARD GOALS) Target Goals Individual exercise Rx (1) BP 140/90 or 130/80 if DM or CKD (1) Aerobic active 30+min 5 days per week (1) Nutrition Date: Apr 15, 2019 Assessment: Re-Assessment II (REASSESSMENT IV) Stages of change: action Lipid- med/supplement ATORVASTATIN Med Change: No Diabetes Diabetes: No Medication Change: No Weight Management Weight (lbs): 194 Special Diet: low salt, low-fat Vitamin/Supplements: Multivitamin Current Weight (pounds): 194 Intervention Stable Attendant Consult: No Nurse/patient discussion: Yes Dietary Goals TO MAKE HEART HEALTHY CHOICES, SMALLER PORTIONS, MORE FRUITS AND VEGETABLES Diet Class: Yes (WILL SEE CORROSION PREVENTION METAL SPRAYER WHILE IN PROGRAM) Referral to Diabetes education: No Referral to lipid clinic: No Referral to weight mangement p: No Education Eating Healthy Education Goals Met: Yes (PROGRESSING TOWARD GOALS) Target goal LDL-C<100 if triglycerides are >200 Non-HDL-C should be <130 (1) LDL-C<70 for high risk patients (4) HbA1c<7% (1) BMI<25 Waist cir<40in M/<35in F (1) Education Date: Apr 15, 2019 Assessment: Re-Assessment II (REASSESSMENT IV) Learning Barriers: ready Stages of change: action Family Support: Yes Tobacco use: No Tobacco Use Smokeless tobacco: No Intervention Referral to smoking cessation: No Individual education and couns: No Tobacco Adjunct: No Education class schedule given: No Attended education classes: No Education: tobacco triggers (SEE PRIOR ITP'S FOR EDUCATION, WILL CONTINUE TO EDUCATE WHILE IN PROGRAM) Education Goals Met: Yes (PROGRESSING TOWARD GOALS) Target Goals Complete cessation of tobacco use (1). Psychosocial Date: Apr 15, 2019 Assessment: Re-Assessment II (REASSESSMENT IV) Stages of change: action Intervention Physician Consult: No Physician Referral: No Med Change: No Stress Management Class: No Uses Stress Management Skills: Yes Education Education: Coping Techniques (SEE EDUCATION ON PRIOR ITP'S, WILL CONTINUE TO EDUCATE WHILE IN PROGRAM) Education Goals Met: Yes (PROGRESSING TOWARD GOALS) Target Goal Assess presence or absence of depression using a valid screening tool (1). Maximize coping skills (2). Positive support system (2). Patient/Program Goal Preventative Medication: Yes Beta blockade, Yes Statin/OTR lipid Lowering, Yes Other ( DIGOXIN AND PRADAXA) Fall Risk Assess: Yes (NOT A FALL RISK) Provider Assessment Session Number: 24 Provider Assessment: Proceed with rehab Lawrence Wolfe RN Apr 15, 2019 15:01
== END 2019-04-16 ==
LOC: M CR 12:53
PROVIDERS: ATTEND Internal Medicine Cardiovascular Disease
DX: Z95.1 Presence of aortocoronary bypass graft (principal)

== ENCOUNTER → 2019-05-14 | Outpatient (REF) | payer MEDICARE, OTHER | LOC: M LAB REF 16:53 | PROVIDERS: ATTEND Internal Medicine Pulmonary Disease | DX: R04.2 Hemoptysis (principal) ==

== ENCOUNTER → 2019-05-15 | Outpatient (REF) | payer MEDICARE, OTHER | LOC: M LAB REF 11:20 | PROVIDERS: ATTEND Internal Medicine Pulmonary Disease | DX: R04.2 Hemoptysis (principal) ==

== ENCOUNTER 2019-05-16 11:06 | Outpatient (RCR) | payer MEDICARE, OTHER ==
--- NOTE | 2019-05-06 14:53 | CARECAPL ---
Assessment Account #s: Re-Assessment II (REASSESSMENT V /RECEIVED EXTENSION DUE TO ILLNESS (CHF)) General Diagnoses: CABG, NSTEMI Date of event: Dec 05, 2018 Physician: Denzel Kamara MD Allergies: Coded Allergies: pseudoephedrine (Verified Adverse Reaction, Intermediate, DIZZINESS, 11/29/18) aspirin (Verified Adverse Reaction, Unknown, GI BLEEDING, 11/29/18) Date Entered Program: Jan 17, 2019 Risk strat for cardiac event: High Exercise Assessment: Re-Assessment II (REASSESSMENT V) Stages of change: action Exercise Prescription Plan TO EDUCATE AND BUILD ENDURANCE THROUGH MONITORED EXERCISE PROGRAM Modalities initiated: Treadmill (METS=3.95/RPE=3), Nustep (METS=6.8/RPE=3), Arm Aerometer (METS=3.5/RPE=2.5), Dumbells (8#/RPE=3.5), Recumbent Bike (METS=6.2/RPE=3) Frequency: 3 Duration (Minutes) 30 - 60 minutes total exercise a day. 15 - 20 work intervals in minutes. PRN rest intervals in minutes. Functional Capacity Goal Sustained Metabolic Equivalent of a task (MET) goal of 4.5-5.5 for 15-20 minutes. Intensity: 3-Moderate Progression (METS) Increase by: 0.5 METS every: 5 sessions TOLERATED Angina with ex: No Target Heart Rate REST + 35-40 BASED ON BETA HERIBERTO THERAPY Resistance Training: Yes Weight (pounds): 8 Reps: 12-15 Hypertension: Yes Hypertension controlled with: Medication Resting 132/70 Peak Exercise BP 118/60 Medications Scheduled Adalimumab (Humira), 0.2 ML SC Q2WK, (Reported) Atorvastatin Calcium (Atorvastatin Calcium), 80 MG PO DAILY, (Reported) Clopidogrel Bisulfate (Plavix), 75 MG PO DAILY, (Reported) Dabigatran Etexilate Mesylate (Pradaxa), 150 MG PO BID, (Reported) Digoxin (Digoxin), 0.125 MG PO DAILY, (Reported) Escitalopram Oxalate (Lexapro), 5 MG PO DAILY, (Reported) Esomeprazole Magnesium (Nexium), 40 MG PO DAILY, (Reported) Furosemide (Lasix), 80 MG PO DAILY, (Reported) Levothyroxine Sodium (Synthroid), 175 MCG PO DAILY, (Reported) Magnesium Chloride (Magnesium Chloride), 64 MG PO BID, (Reported) Metoprolol Tartrate (Metoprolol Tartrate), 50 MG PO BID, (Reported) Multivitamin (Multivitamins), 1 CAP PO DAILY, (Reported) Potassium Chloride (K-Tab ER), 10 MEQ PO DAILY, (Reported) Current BP 122/76 Med Change: No Intervention Home exercise: Type (SEE EDUCATION ON PRIOR ITP'S, WILL CONTINUE TO EDUCATE WHILE IN PROGRAM) Resistance Training: Yes Education: Self pulse (SEE EDUCATION ON PRIOR ITP'S/WILL CONTINUE TO EDUCATE WHILE IN PROGRAM) Education Goals Met: Yes (PRGRESSING TOWARD GOALS) Target Goals Individual exercise Rx (1) BP 140/90 or 130/80 if DM or CKD (1) Aerobic active 30+min 5 days per week (1) Nutrition Date: May 06, 2019 Assessment: Re-Assessment II (REASSESSMENT V) Stages of change: action Lipid- med/supplement ATORVASTATIN Med Change: No Diabetes Diabetes: No Medication Change: No Weight Management Weight (lbs): 194 Special Diet: low salt, low-fat Vitamin/Supplements: Multivitamin Current Weight (pounds): 194 Intervention Antique Finisher Consult: No Nurse/patient discussion: Yes Dietary Goals TO EAT HEART HEALTHY DIET/SMALLER PORTIONS Diet Class: Yes (WILL SEE COMMERCIAL PARTS PROFESSIONAL WHILE IN PROGRAM) Referral to Diabetes education: No Referral to lipid clinic: No Referral to weight mangement p: No Education Eating Healthy Education Goals Met: Yes (PROGRESSING TOWARD GOALS) Target goal LDL-C<100 if triglycerides are >200 Non-HDL-C should be <130 (1) LDL-C<70 for high risk patients (4) HbA1c<7% (1) BMI<25 Waist cir<40in M/<35in F (1) Education Date: May 06, 2019 Assessment: Re-Assessment II (REASSESSMENT V) Learning Barriers: ready Stages of change: action Family Support: Yes Tobacco use: No Tobacco Use Smokeless tobacco: No Intervention Referral to smoking cessation: No Individual education and couns: No Tobacco Adjunct: No Education class schedule given: No Attended education classes: No Education: tobacco triggers (SEE PRIOR ITP'S FOR EDUCATION GIVEN/WILL CONTINUE TO EDUCATE WHILE IN PROGRAM) Education Goals Met: Yes (PROGRESSING TOWARD GOALS) Target Goals Complete cessation of tobacco use (1). Psychosocial Date: May 06, 2019 Assessment: Re-Assessment II (REASSESSMENT V) Stages of change: action Intervention Physician Consult: No Physician Referral: No Med Change: No Stress Management Class: No Uses Stress Management Skills: Yes Education Education: Coping Techniques (SEE EDUCATION GIVEN ON PRIOR ITP'S/WILL CONTINUE TO EDUCATE WHILE IN PROGRAM) Target Goal Assess presence or absence of depression using a valid screening tool (1). Maximize coping skills (2). Positive support system (2). Patient/Program Goal Preventative Medication: Yes Beta blockade, Yes Statin/OTR lipid Lowering, Yes Other (DIGOXIN AND PRADAXA) Fall Risk Assess: Yes (NOT A FALL RISK) Provider Assessment Session Number: 31 Provider Assessment: Proceed with rehab (RECEIVED EXTENSION DUE TO ILLNESS (CHF)) Lawrence Wolfe RN May 06, 2019 14:53
--- NOTE | 2019-05-16 11:44 | CARECAPL ---
Assessment Account #s: Discharge General Diagnoses: CABG, NSTEMI Date of event: Dec 05, 2018 Physician: Denzel Kamara MD Allergies: Coded Allergies: pseudoephedrine (Verified Adverse Reaction, Intermediate, DIZZINESS, 11/29/18) aspirin (Verified Adverse Reaction, Unknown, GI BLEEDING, 11/29/18) Date Entered Program: Jan 17, 2019 Risk strat for cardiac event: High Exercise Date: May 16, 2019 Assessment: Followup/Discharge Stages of change: maintenance Exercise Prescription Modalities initiated: Treadmill (2.5/2.5 MTS 4.0 RPE 3 12 MINUTES), Nustep (15 MINUTES MTS 5.2 RPE 3.5), Arm Aerometer (5.5 10 MINUTES MTS 4.0 RPE 3.5), Dumbells, Recumbent Bike (10 MINUTES MTS 7.4 RPE 3.5 R4) Duration (Minutes) 30 - 60 minutes total exercise a day. 15 - 20 work intervals in minutes. PRN rest intervals in minutes. Functional Capacity Goal Sustained Metabolic Equivalent of a task (MET) goal of for minutes. Intensity: 3-Moderate Progression (METS) Increase by: METS every: sessions Angina with ex: No Resistance Training: Yes Weight (pounds): 10 Reps: 8-12 Hypertension: Yes Hypertension controlled with: Medication Resting 122/88 Peak Exercise BP 142/90 Meds SEE MEDS BELOW Medications Scheduled Adalimumab (Humira), 0.2 ML SC Q2WK, (Reported) Atorvastatin Calcium (Atorvastatin Calcium), 80 MG PO DAILY, (Reported) Clopidogrel Bisulfate (Plavix), 75 MG PO DAILY, (Reported) Dabigatran Etexilate Mesylate (Pradaxa), 150 MG PO BID, (Reported) Digoxin (Digoxin), 0.125 MG PO DAILY, (Reported) Escitalopram Oxalate (Lexapro), 5 MG PO DAILY, (Reported) Esomeprazole Magnesium (Nexium), 40 MG PO DAILY, (Reported) Furosemide (Lasix), 80 MG PO DAILY, (Reported) Levothyroxine Sodium (Synthroid), 175 MCG PO DAILY, (Reported) Magnesium Chloride (Magnesium Chloride), 64 MG PO BID, (Reported) Metoprolol Tartrate (Metoprolol Tartrate), 50 MG PO BID, (Reported) Multivitamin (Multivitamins), 1 CAP PO DAILY, (Reported) Potassium Chloride (K-Tab ER), 10 MEQ PO DAILY, (Reported) Education Goals Met: Yes (ALL EXERCISE GOALS MET. MET MTS GOAL) Target Goals Individual exercise Rx (1) BP 140/90 or 130/80 if DM or CKD (1) Aerobic active 30+min 5 days per week (1) Nutrition Date: May 16, 2019 Assessment: Followup/Discharge Stages of change: action Diabetes Diabetes: No Weight Management Weight (lbs): 193 Height (inches): 64 Waist Circumference (Inches): 39 BMI: 32.78 Special Diet: mediteranean diet Alcohol: special Alcohol Amount: 1 Diet Access Tool: Rate your plate Score: 57 Intervention Data Quality Consultant Consult: Yes Nurse/patient discussion: Yes Diet Class: Yes Education Goals Met: Yes (ALL DIETARY GOALS MET) Target goal LDL-C<100 if triglycerides are >200 Non-HDL-C should be <130 (1) LDL-C<70 for high risk patients (4) HbA1c<7% (1) BMI<25 Waist cir<40in M/<35in F (1) Education Date: May 16, 2019 Assessment: Followup/Discharge Knowledge Test Score: 10 Stages of change: maintenance Quit: never smoked Education Goals Met: Yes (MET ALL EDUCATION GOALS) Target Goals Complete cessation of tobacco use (1). Psychosocial Date: May 16, 2019 Assessment: Followup/Discharge Psych Test (Initial/Discharge) Tool Used: Other Score: 6 Stages of change: Preperation Stress Management Class: Yes Uses Stress Management Skills: Yes Target Goal Assess presence or absence of depression using a valid screening tool (1). Maximize coping skills (2). Positive support system (2). Provider Assessment Session Number: 35 Verónica Christina RN May 16, 2019 11:44
== END 2019-05-17 ==
LOC: M CR 11:06
PROVIDERS: ATTEND Internal Medicine Cardiovascular Disease
DX: Z95.1 Presence of aortocoronary bypass graft (principal)

== ENCOUNTER → 2019-05-17 | Outpatient (REF) | payer MEDICARE, OTHER | LOC: M SFHCCLAY 09:24 | PROVIDERS: ATTEND Family Medicine | DX: E89.0 Postprocedural hypothyroidism (principal) ==

== ENCOUNTER → 2019-05-17 | Outpatient (REF) | payer MEDICARE, OTHER ==
[2019-05-17 12:44] LABS: BASO % 0.6 % (0.0-1.0); EOS # 0.2 10^3/uL (0.0-0.5); EOS % 3.7 % (0.0-3.0); HEMATOCRIT 39.1 % (42.0-52.0); HEMOGLOBIN 11.8 g/dl (13.5-17.5); LYMPH # 2.3 10^3/uL (1.5-5.0); LYMPH % 36.1 % (24.0-44.0); MEAN CORPUSCULAR HEMOGLOBIN 24.6 pg (27.0-33.0); MEAN CORPUSCULAR HGB CONC 30.2 g/dl (32.0-36.5); MEAN CORPUSCULAR VOLUME 81.6 fl (80.0-96.0); MONO # 0.7 10^3/uL (0.0-0.8); MONO % 10.5 % (0.0-5.0); NEUTROPHILS # 3.1 10^3/uL (1.5-8.5); NEUTROPHILS % 48.8 % (36.0-66.0); PLATELET COUNT, AUTOMATED 286 10^3/uL (150-450); RED BLOOD COUNT 4.79 10^6/uL (4.30-6.10); WHITE BLOOD COUNT 6.3 10^3/uL (4.0-10.0)
[2019-05-17 13:00] LABS: INR 1.33; PROTHROMBIN TIME 16.2 SECONDS (11.8-14.0)
[2019-05-17 13:18] LABS: ALBUMIN 3.7 GM/DL (3.2-5.2); ALT/SGPT 21 U/L (12-78); BILIRUBIN,TOTAL 0.6 MG/DL (0.2-1.0); BLOOD UREA NITROGEN 11 MG/DL (7-18); C REACTIVE PROTEIN QUANTITATIV < 0.30 MG/DL (0.00-0.30); CALCIUM LEVEL 7.3 MG/DL (8.8-10.2); CARBON DIOXIDE LEVEL 32 MEQ/L (21-32); CHLORIDE LEVEL 105 MEQ/L (98-107); CREATININE FOR GFR 0.81 MG/DL (0.70-1.30); GLOMERULAR FILTRATION RATE > 60.0 (>49); GLUCOSE, FASTING 104 MG/DL (70-100); NT-PRO BNP 262 PG/ML (<125); POTASSIUM SERUM 4.4 MEQ/L (3.5-5.1); SODIUM LEVEL 140 MEQ/L (136-145); TOTAL PROTEIN 7.3 GM/DL (6.4-8.2)
[2019-05-17 18:31] LABS: ERYTHROCYTE SEDIMENTATION RATE 14 mm/hr (0-20)
== END ==
LOC: M LABDRAWC 11:14
PROVIDERS: ATTEND Internal Medicine Pulmonary Disease
DX: R04.2 Hemoptysis (principal)

== ENCOUNTER → 2019-06-17 | Outpatient (REF) | payer MEDICARE, OTHER ==
[2019-06-17 11:53] LABS: BASO % 0.6 % (0.0-1.0); EOS # 0.3 10^3/uL (0.0-0.5); EOS % 4.1 % (0.0-3.0); HEMATOCRIT 39.6 % (42.0-52.0); HEMOGLOBIN 12.8 g/dl (13.5-17.5); LYMPH # 2.5 10^3/uL (1.5-5.0); LYMPH % 38.2 % (24.0-44.0); MEAN CORPUSCULAR HEMOGLOBIN 26.7 pg (27.0-33.0); MEAN CORPUSCULAR HGB CONC 32.3 g/dl (32.0-36.5); MEAN CORPUSCULAR VOLUME 82.7 fl (80.0-96.0); MONO # 0.7 10^3/uL (0.0-0.8); NEUTROPHILS # 3.1 10^3/uL (1.5-8.5); NEUTROPHILS % 45.8 % (36.0-66.0); PLATELET COUNT, AUTOMATED 261 10^3/uL (150-450); RED BLOOD COUNT 4.79 10^6/uL (4.30-6.10); WHITE BLOOD COUNT 6.7 10^3/uL (4.0-10.0)
[2019-06-17 12:16] LABS: BLOOD UREA NITROGEN 10 MG/DL (7-18); CALCIUM LEVEL 7.8 MG/DL (8.8-10.2); CARBON DIOXIDE LEVEL 31 MEQ/L (21-32); CHLORIDE LEVEL 103 MEQ/L (98-107); CREATININE FOR GFR 0.83 MG/DL (0.70-1.30); GLOMERULAR FILTRATION RATE > 60.0 (>49); GLUCOSE, FASTING 111 MG/DL (70-100); IRON (FE) 219 UG/DL (65-175); SODIUM LEVEL 142 MEQ/L (136-145)
== END ==
LOC: M SFHCCLAY 08:17
PROVIDERS: ATTEND Family Medicine
DX: D64.9 Anemia, unspecified (principal); E78.2 Mixed hyperlipidemia
CPT/HCPCS: 80048; 83540; 85025; G0463

== ENCOUNTER → 2019-07-29 | Outpatient (CLI) | payer MEDICARE, OTHER ==
--- NOTE | 2019-07-29 11:22 | REP ---
REASON FOR EXAM: Followup. The latest prior for comparison is 02/04/2019, a contrast enhanced exam. The mediastinum and pulmonary shilo have not changed significantly compared to the prior contrast enhanced exam, however, the adenopathy seen previously was better imaged on the prior contrast study. There does appear to be stable mediastinal adenopathy with the largest lymph node in the right paratracheal region unchanged. No pleural or pericardial effusions have developed. The imaged upper abdomen and imaged osseous structures are unchanged. There is a stable left adrenal gland nodule. Evaluation of the lung field shows patchy airspace opacities bilaterally with mid and lower lung zone predominance and markedly increased compared to the prior exam. These opacities could easily obscure a significant nodule. IMPRESSION: 1. Bilateral predominantly airspace opacities which have increased significantly compared to the prior exam as described above and some with air bronchograms. This needs to be correlated clinically. 2. Essentially stable appearing adenopathy. 3. Other findings and limitations as described above. Electronically Signed by Enrike Huertas DO 07/29/2019 11:52 A
== END ==
LOC: M RAD 10:21
PROVIDERS: ATTEND Internal Medicine Pulmonary Disease
DX: R91.8 Other nonspecific abnormal finding of lung field (principal)

== ENCOUNTER → 2019-08-08 | Outpatient (CLI) | payer MEDICARE, OTHER ==
[2019-08-08 10:12] LABS: BASO % 0.6 % (0.0-1.0); EOS # 0.2 10^3/uL (0.0-0.5); EOS % 2.9 % (0.0-3.0); HEMATOCRIT 42.1 % (42.0-52.0); HEMOGLOBIN 14.3 g/dl (13.5-17.5); LYMPH % 46.1 % (24.0-44.0); MEAN CORPUSCULAR HEMOGLOBIN 28.1 pg (27.0-33.0); MEAN CORPUSCULAR VOLUME 82.9 fl (80.0-96.0); MONO # 0.8 10^3/uL (0.0-0.8); MONO % 12.1 % (0.0-5.0); NEUTROPHILS # 2.5 10^3/uL (1.5-8.5); NEUTROPHILS % 38.1 % (36.0-66.0); PLATELET COUNT, AUTOMATED 241 10^3/uL (150-450); RED BLOOD COUNT 5.08 10^6/uL (4.30-6.10); WHITE BLOOD COUNT 6.6 10^3/uL (4.0-10.0)
[2019-08-08 10:22] LABS: INR 1.38; PARTIAL THROMBOPLASTIN TIME 33.3 SECONDS (25.0-38.4); PROTHROMBIN TIME 16.7 SECONDS (11.8-14.0)
[2019-08-08 10:43] LABS: ALBUMIN 3.9 GM/DL (3.2-5.2); ALT/SGPT 32 U/L (12-78); BILIRUBIN,TOTAL 0.5 MG/DL (0.2-1.0); BLOOD UREA NITROGEN 12 MG/DL (7-18); CALCIUM LEVEL 7.6 MG/DL (8.8-10.2); CARBON DIOXIDE LEVEL 32 MEQ/L (21-32); CHLORIDE LEVEL 104 MEQ/L (98-107); COMPLEMENT C3 134 MG/DL (90-180); COMPLEMENT C4 23 MG/DL (10-40); CREATININE FOR GFR 0.84 MG/DL (0.70-1.30); GLOMERULAR FILTRATION RATE > 60.0 (>49); GLUCOSE, FASTING 95 MG/DL (70-100); NT-PRO BNP 261 PG/ML (<125); POTASSIUM SERUM 4.1 MEQ/L (3.5-5.1); SODIUM LEVEL 140 MEQ/L (136-145); TOTAL PROTEIN 8.3 GM/DL (6.4-8.2)
== END ==
LOC: M LAB 09:33
PROVIDERS: ATTEND Internal Medicine Pulmonary Disease
DX: Z01.812 Encounter for preprocedural laboratory examination (principal); R04.2 Hemoptysis

== ENCOUNTER → 2019-08-19 | Outpatient (CLI) | payer MEDICARE, OTHER ==
[~2019-08-19] MED LIST changes: +CARV25TA PO; +DIGO0.123 PO; +ELIQ5TAB PO; +HUMI40KI SC; +SM M250T PO; +SYMB80INH INH
== END ==
LOC: M LABSMTC 12:18
PROVIDERS: ATTEND Anesthesiology
DX: Z11.59 Encounter for screening for other viral diseases (principal)

== ENCOUNTER 2019-08-21 09:09 | Day surgery (SDC) | payer MEDICARE, OTHER ==
[~2019-08-21] VITALS: Ht 162.6 cm; Wt 89.4 kg
[~2019-08-21 09:09] MED LIST changes: +CETACAINE SPRAY 5GM As Ordered ONE; +EPINEPHrine 1MG/10ML SYRINGE 1.5IN As Ordered ONE; +LIDOCAINE 1% SDV 30ML VIAL As Ordered ONE; +LIDOCAINE VISCOUS 2% SOLN 15ML UDC As Ordered ONE; +LR 1,000 ML IV ONE; +THROMBIN SOLN 5,000 UNITS VIAL As Ordered ONE
[2019-08-21] MEDS ORDERED: fentaNYL 100 MCG/2 ML INJECTION (J3010) As Ordered ONE (09:26)
[2019-08-21] MEDS ORDERED: LIDOCAINE 2% 100MG/5ML SDV (FOR ANES.) As Ordered ONE (09:26)
[2019-08-21] MEDS ORDERED: dexameTHASONE 4 MG/ML 1ML VIAL (J1100 PER 1MG) As Ordered ONE (09:26)
[2019-08-21] MEDS ORDERED: ROCURONIUM BROMIDE 50 MG/5 ML VIAL As Ordered ONE (09:26)
[2019-08-21] MEDS ORDERED: ONDANSETRON 4MG/2ML VIAL As Ordered ONE ×2 (09:26→12:02)
[2019-08-21] MEDS ORDERED: MIDAZOLAM INJ 2MG/2ML VIAL (J2250 PER 1MG) As Ordered ONE (09:26)
[2019-08-21] MEDS ORDERED: propofoL 200 MG/20 ML VIAL As Ordered ONE (09:26)
[2019-08-21] MEDS ORDERED: SCOPOLAMINE 1MG TRANSDERMAL PATCH As Ordered ONE (10:39)
[2019-08-21] MEDS ORDERED: SCOPOLAMINE 1MG TRANSDERMAL PATCH TOP ONE (10:45)
[2019-08-21] MEDS ORDERED: SUGAMMADEX SODIUM 500 MG/5 ML VIAL (BRIDION) As Ordered ONE (11:07)
[2019-08-21] MEDS ORDERED: PHENYLephrine HCL 500 MCG/5 ML (100MCG/ML) SYRINGE (J2370) As Ordered ONE (11:11)
[2019-08-21] MEDS ORDERED: LR 1,000 ML IV SCH (12:15)
[2019-08-21] MEDS ORDERED: fentaNYL 100 MCG/2 ML INJECTION (J3010) IV PRN (12:15)
[2019-08-21] MEDS ORDERED: ONDANSETRON 4MG/2ML VIAL IV PRN (12:15)
--- NOTE | 2019-08-21 12:46 | ROOR ---
Patient Name: Quincy Contreras Procedure Date: 08/21/2019 10:41 AM Date of : 1950 Admit Type: Outpatient Age: 69 Room: Main OR Note Status: Finalized Attending MD: Rani Orona MD Procedure: Bronchoscopy Indications: Hemoptysis with abnormal CXR, Bilateral infiltrate, Abnormal CT scan of chest, Paratracheal adenopathy Providers: Rani Orona MD (Doctor) Referring MD: Denzel Kamara MD (Referring MD) Requesting Physician: Medicines: General Anesthesia, Cetacaine topical Complications: No immediate complications. Estimated blood loss: Minimal Procedure: Pre-Anesthesia Assessment: - Prior to the procedure, a History and Physical was performed, and patient medications and allergies were reviewed. The patient's tolerance of previous anesthesia was also reviewed. The risks and benefits of the procedure and the sedation options and risks were discussed with the patient. All questions were answered, and informed consent was obtained. Prior Anticoagulants: The patient has taken Eliquis (apixaban), last dose was 5 days prior to procedure. ASA Grade Assessment: III - A patient with severe systemic disease. After reviewing the risks and benefits, the patient was deemed in satisfactory condition to undergo the procedure. The Bronchoscope was introduced through the mouth, via the endotracheal tube (the patient was intubated for the procedure) and advanced to the tracheobronchial tree of both lungs. The procedure was accomplished without difficulty. The patient tolerated the procedure well. Findings: The endotracheal tube is in good position. The visualized portion of the trachea is of normal caliber. The ibeth is sharp. The tracheobronchial tree was examined to at least the first subsegmental level. Bronchial mucosa was normal; there are no endobronchial lesions, and some mild webbing. There were some bloody mucoid secretions noted in lung in ibeth and RUL posterior segment as well as in right lower lobe and left lower lobe segments. Sequential bronchoalveolar lavages using 30-40mls of saline was performed in the RUL posterior segment (B2) of the lung. On sequential aliquots there was persistent bloody return but not increasing bloody return so not consistent with DAH. Samples were sent for cell count, bacterial culture, and fungal & AFB analysis and cytology. The return was blood-tinged. There were no mucoid plugs in the return fluid. Multiple specimens were obtained and pooled into one specimen, which was sent for analysis. Sequential bronchoalveolar lavages using 30-40mls of saline was performed in the lingula of the lung. On sequential aliquots there was persistent bloody return but not increasing bloody return so not consistent with DAH. Samples were sent for cell count, bacterial culture, and fungal & AFB analysis and cytology. The return was blood-tinged. There were no mucoid plugs in the return fluid. Multiple specimens were obtained and pooled into one specimen, which was sent for analysis. Transbronchial biopsies of an area of infiltration were performed in the posterior segment of the right upper lobe using forceps and sent for histopathology examination. The procedure was guided by fluoroscopy. Transbronchial biopsy technique was selected because the sampling site was not visible endoscopically. Transbronchial biopsies of an area of infiltration were performed in the lateral segment of the right middle lobe using forceps and sent for histopathology examination. The procedure was guided by fluoroscopy. Transbronchial biopsy technique was selected because the sampling site was not visible endoscopically. Transbronchial biopsies of an area of infiltration were performed in the superior segment of the right lower lobe using forceps and sent for histopathology examination. The procedure was guided by fluoroscopy. Transbronchial biopsy technique was selected because the sampling site was not visible endoscopically. An endobronchial ultrasound endoscope was utilized in order to assist with fine needle aspiration in the right paratracheal area. The subcarinal lymph node was evaluated and the hilar lymph nodes and were not significantly enlarged. Transbronchial needle aspirations of a lymph node were performed in the right paratracheal area using an Olympus [id number]-TBNA 21 gauge needle and sent for routine cytology. The procedure was guided by ultrasound. Transbronchial needle aspiration technique was selected because the sampling site was not visible endoscopically. Estimated blood loss: minimal. Impression: - Hemoptysis with abnormal CXR - Bilateral infiltrate - Abnormal CT scan of chest - Paratracheal adenopathy - The airway examination was normal. - Bronchoalveolar lavage was performed RUL - Bronchoalveolar lavage was performed Lingula - Transbronchial lung biopsies were performed RUL - Transbronchial lung biopsies were performed RML - Transbronchial lung biopsies were performed RLL - Endobronchial ultrasound was performed. - A transbronchial needle aspiration was performed of a lymph node Recommendation: - Follow up with bronchoscopist as previously scheduled. Attending Participation: I personally performed the entire procedure. Rani Orona MD 08/21/2019 12:46:21 PM Number of Addenda: 0 Note Initiated On: 08/21/2019 10:41 AM
[2019-08-21 12:59] LABS: COLOR RED (COLORLESS); SOURCE BRON ALVEOLAR LAVAGE
[2019-08-21 13:00] LABS: APPEARANCE TURBID (CLEAR)
--- NOTE | 2019-08-21 13:40 | REP ---
REASON: Status post bronchoscopy. COMPARISON: Multiple, the latest 12/28/2018 The technique utilized in obtaining the radiograph has magnified the cardiac silhouette and accentuated the interstitial markings. There is mild cardiomegaly accentuated by technique. There is a patchy opacity in the left lower lobe but markedly improved when compared to the prior exam where a large left lower lobe opacity was present. There is a new subtle right upper lobe patchy opacity. There are stable chronic right lung base changes. There is no change in the osseous structures. IMPRESSION: 1. Patchy opacity in the left lower lobe as described above. Whether or not this represents a sequela from that prior opacity or represents acute disease cannot be stated with certainty by this exam. Consider followup. 2. New patchy right upper lobe opacity suspicious for pneumonia. 3. Other findings and chronic changes as described above. Electronically Signed by Enrike Huertas DO 08/21/2019 01:52 P
[2019-08-21 13:55] VITALS: BP 111/73
[2019-08-21 15:20] LABS: MONOCYTES/MACROPHAGES, BAL 4 %
== END 2019-08-21 14:00 | disposition home or self-care (01) ==
LOC: M SDC 09:09
PROVIDERS: ATTEND Internal Medicine Pulmonary Disease
DX: J98.4 Other disorders of lung (principal); R04.2 Hemoptysis; I48.91 Unspecified atrial fibrillation; I10 Essential (primary) hypertension; I25.10 Atherosclerotic heart disease of native coronary artery without angina pectoris; I25.2 Old myocardial infarction; G47.30 Sleep apnea, unspecified; E78.5 Hyperlipidemia, unspecified; E03.9 Hypothyroidism, unspecified; Z79.01 Long term (current) use of anticoagulants; Z79.899 Other long term (current) drug therapy; E66.9 Obesity, unspecified; K51.80 Other ulcerative colitis without complications; Z85.850 Personal history of malignant neoplasm of thyroid; Z95.1 Presence of aortocoronary bypass graft
CPT/HCPCS: 31624; 31628; 31632; 31652; 71045; 76000; 87070; 87102; 87116; 87205; 87206; 88108; 88173; 88305; 88312; 88313; 89051; J1100; J2250; J2370; J2405; J3010

== ENCOUNTER → 2019-12-31 | Outpatient (REF) | payer MEDICARE, OTHER ==
[~2019-12-31] MED LIST changes: -CETACAINE SPRAY 5GM As Ordered ONE; -EPINEPHrine 1MG/10ML SYRINGE 1.5IN As Ordered ONE; -LIDOCAINE 1% SDV 30ML VIAL As Ordered ONE; -LIDOCAINE VISCOUS 2% SOLN 15ML UDC As Ordered ONE; -LR 1,000 ML IV ONE; -THROMBIN SOLN 5,000 UNITS VIAL As Ordered ONE
[2019-12-31 12:28] LABS: HEMATOCRIT 35.4 % (42.0-52.0); HEMOGLOBIN 11.9 g/dl (13.5-17.5); MEAN CORPUSCULAR HEMOGLOBIN 30.9 pg (27.0-33.0); MEAN CORPUSCULAR HGB CONC 33.6 g/dl (32.0-36.5); MEAN CORPUSCULAR VOLUME 91.9 fl (80.0-96.0); PLATELET COUNT, AUTOMATED 211 10^3/uL (150-450); RED BLOOD COUNT 3.85 10^6/uL (4.30-6.10); WHITE BLOOD COUNT 6.6 10^3/uL (4.0-10.0)
[2019-12-31 13:02] LABS: ALBUMIN 3.6 GM/DL (3.2-5.2); ALT/SGPT 32 U/L (12-78); BILIRUBIN,TOTAL 0.6 MG/DL (0.2-1.0); BLOOD UREA NITROGEN 11 MG/DL (7-18); CALCIUM LEVEL 7.5 MG/DL (8.8-10.2); CARBON DIOXIDE LEVEL 31 MEQ/L (21-32); CHLORIDE LEVEL 105 MEQ/L (98-107); CHOLESTEROL LEVEL 72 MG/DL (<200); CHOLESTEROL RISK RATIO 1.945 (<5); CREATININE FOR GFR 0.82 MG/DL (0.70-1.30); GLOMERULAR FILTRATION RATE > 60.0 (>49); GLUCOSE, FASTING 100 MG/DL (70-100); HDL CHOLESTEROL 37 MG/DL (>40); IRON (FE) 54 UG/DL (65-175); LDL CHOLESTEROL 16 MG/DL (<100); NON-HDL-C 35 MG/DL; PERCENT SATURATION 13.7 % (19.7-50.0); POTASSIUM SERUM 4.6 MEQ/L (3.5-5.1); SODIUM LEVEL 142 MEQ/L (136-145); THYROID STIMULATING HORMONE 0.038 uIU/ML (0.358-3.740); TOTAL IRON BINDING CAPACITY 394 UG/DL (250-450); TOTAL PROTEIN 7.2 GM/DL (6.4-8.2); TRIGLYCERIDES LEVEL 94 MG/DL (<150)
== END ==
LOC: M SFHCCLAY 11:25
PROVIDERS: ATTEND Family Medicine
DX: E89.0 Postprocedural hypothyroidism (principal); I10 Essential (primary) hypertension; D64.9 Anemia, unspecified; Z95.1 Presence of aortocoronary bypass graft

== ENCOUNTER → 2020-02-06 | Outpatient (CLI) | payer MEDICARE, OTHER ==
--- NOTE | 2020-02-06 11:14 | REP ---
INDICATION: ABNORMAL FINDING OF LUNG FIELD, HEMOPTYSIS COMPARISON: 07/29/2019 TECHNIQUE: Axial noncontrast images from the thoracic inlet to the upper abdomen with coronal and sagittal reformations. This CT examination was performed using the following dose reduction techniques: Automated exposure control, adjustment of mA and/or kv according to the patient's size, and use of iterative reconstruction technique. FINDINGS: The lung cash again demonstrate scattered bilateral ground-glass opacities with underlying subtle reticulonodular interstitial changes primarily noted in the left upper lobe/lingula. These findings may be slightly decreased when compared to 07/29/2019 and no new areas of consolidation or opacity are identified. Associated mediastinal lymph nodes remain unchanged. No effusion. No pneumothorax. Tracheobronchial tree is patent. Further evaluation of the mediastinum demonstrates atherosclerotic changes to the thoracic aorta and coronary arteries along with evidence for prior CABG and cardiomegaly. No pericardial effusion. Musculoskeletal structures demonstrate prior sternotomy without acute osseous abnormality. Upper abdomen demonstrates stable left adrenal adenoma. IMPRESSION: 1. Ground-glass opacities with underlying reticulonodular interstitial changes again noted but slightly improved. Findings are now most pronounced in the left upper lobe/lingula region. No associated new consolidation or effusion. Few mediastinal lymph nodes are stable. 2. Further chronic findings as described above <Electronically signed by Luis Enrique Randolph > 02/06/20 [id number]
== END ==
LOC: M RAD 09:38
PROVIDERS: ATTEND Internal Medicine Pulmonary Disease
DX: R91.8 Other nonspecific abnormal finding of lung field (principal); R04.2 Hemoptysis

== ENCOUNTER → 2020-06-11 | Outpatient (CLI) | payer MEDICARE, OTHER ==
[~2020-06-11] MED LIST changes: +LISI10TA22 PO; -LISI10TA4 PO
== END ==
LOC: M LAB 10:14
PROVIDERS: ATTEND Internal Medicine Gastroenterology
DX: K50.10 Crohn's disease of large intestine without complications (principal)

== ENCOUNTER → 2020-06-25 | Outpatient (CLI) | payer MEDICARE, OTHER ==
[2020-06-25 12:09] LABS: HEMATOCRIT 32.8 % (42.0-52.0); HEMOGLOBIN 10.1 g/dl (13.5-17.5); MEAN CORPUSCULAR HEMOGLOBIN 24.3 pg (27.0-33.0); MEAN CORPUSCULAR HGB CONC 30.8 g/dl (32.0-36.5); PLATELET COUNT, AUTOMATED 309 10^3/uL (150-450); RED BLOOD COUNT 4.15 10^6/uL (4.30-6.10); WHITE BLOOD COUNT 6.3 10^3/uL (4.0-10.0)
[2020-06-25 12:36] LABS: ALBUMIN 3.6 GM/DL (3.2-5.2); ALT/SGPT 26 U/L (12-78); BILIRUBIN,TOTAL 0.5 MG/DL (0.2-1.0); BLOOD UREA NITROGEN 12 MG/DL (7-18); CALCIUM LEVEL 7.3 MG/DL (8.8-10.2); CARBON DIOXIDE LEVEL 32 MEQ/L (21-32); CHLORIDE LEVEL 105 MEQ/L (98-107); CREATININE FOR GFR 0.84 MG/DL (0.70-1.30); FERRITIN 15 NG/ML (26-388); GLOMERULAR FILTRATION RATE > 60.0 (>49); GLUCOSE, FASTING 129 MG/DL (70-100); IRON (FE) 19 UG/DL (65-175); POTASSIUM SERUM 3.8 MEQ/L (3.5-5.1); SODIUM LEVEL 141 MEQ/L (136-145); THYROID STIMULATING HORMONE 0.053 uIU/ML (0.358-3.740); TOTAL PROTEIN 7.1 GM/DL (6.4-8.2)
[2020-06-25 12:41] LABS: VITAMIN B12 LEVEL 326 PG/ML (247-911)
[2020-06-25 12:42] LABS: FOLATE > 24.0 NG/ML (>5.4)
== END ==
LOC: M LAB 10:52
PROVIDERS: ATTEND Internal Medicine Cardiovascular Disease
DX: I48.21 Permanent atrial fibrillation (principal); I25.10 Atherosclerotic heart disease of native coronary artery without angina pectoris; D50.9 Iron deficiency anemia, unspecified; I10 Essential (primary) hypertension

== ENCOUNTER → 2020-07-09 | Outpatient (CLI) | payer MEDICARE, OTHER ==
--- NOTE | 2020-07-10 07:47 | REP ---
INDICATION: CHRONIC DIASTOLIC (CONGESTIVE) HEART FAILURE. COMPARISON: Portable chest dated 08/21/2019. TECHNIQUE: Upright PA and lateral chest. FINDINGS: For the previous densities inferiorly in the left lung and superiorly in the right lung have resolved. The previous interstitial coarsening is resolved. Cardiac size is upper normal. Sternotomy wires and left atrial appendage closure device are again noted, unchanged. IMPRESSION: There are no acute cardiopulmonary findings. The previous acute findings have resolved. Cardiac size is upper normal. Sternotomy wires and left ventral depended closure device are again noted. <Electronically signed by Saji Laughlin > 07/10/20 [id number]
== END ==
LOC: M RAD 18:49
PROVIDERS: ATTEND Internal Medicine Cardiovascular Disease
DX: I50.32 Chronic diastolic (congestive) heart failure (principal); Z79.01 Long term (current) use of anticoagulants

== ENCOUNTER 2020-07-20 10:05 | Outpatient (CLI) | payer MEDICARE, OTHER ==
[~2020-07-20] VITALS: Ht 165.1 cm; Wt 88.0 kg
[~2020-07-20 10:05] MED LIST changes: +ALBUTEROL SULFATE 2.5 MG/0.5 ML INH NEB SOLN INH PRN; +EPINEPHrine INJ 1 MG/ML 1ML AMP IM PRN; +diphenhydrAMINE 50MG/ML VIAL (J1200) IV PRN; +methylPREDNISolone 125MG 2ML VIAL IV PRN
[2020-07-20 10:20] VITALS: BP 168/83
[2020-07-20] MEDS ORDERED: ACETAMINOPHEN TAB 650MG DOSE (2X325MG) PO ONE (10:30)
[2020-07-20] MEDS ORDERED: diphenhydrAMINE 50MG/ML VIAL (J1200) IV ONE (10:30)
[2020-07-20] MEDS ORDERED: FERRIC CARBOXYMALTOSE INJ 750 MG, VIAL MATE ADAPTER 1 EACH in NS 250 ML IV ONE (10:30)
[2020-07-20] MEDS ORDERED: NS 1,000 ML IV SCH (10:30)
[2020-07-20 11:41] VITALS: BP 130/60
[2020-07-20 12:08] VITALS: BP 134/79
== END 2020-07-20 12:10 | disposition home or self-care (01) ==
LOC: M INFU 10:05
PROVIDERS: ATTEND Family Medicine
DX: D50.9 Iron deficiency anemia, unspecified (principal); Z88.8 Allergy status to other drugs, medicaments and biological substances
CPT/HCPCS: 96365; 96375; J1200; J1439

== ENCOUNTER 2020-07-27 12:24 | Outpatient (CLI) | payer MEDICARE, OTHER ==
[~2020-07-27] VITALS: Ht 160 cm; Wt 88.0 kg
[2020-07-27 12:30] VITALS: BP 137/72
[2020-07-27] MEDS ORDERED: NS 1,000 ML IV SCH (12:30)
[2020-07-27] MEDS ORDERED: FERRIC CARBOXYMALTOSE INJ 750 MG, VIAL MATE ADAPTER 1 EACH in NS 250 ML IV ONE (12:30)
[2020-07-27] MEDS ORDERED: ACETAMINOPHEN TAB 650MG DOSE (2X325MG) PO ONE (12:30)
[2020-07-27] MEDS ORDERED: diphenhydrAMINE 50MG/ML VIAL (J1200) IV ONE (12:30)
[2020-07-27 13:30] VITALS: BP 158/86
[2020-07-27 15:40] VITALS: BP 117/59
== END 2020-07-27 15:40 | disposition home or self-care (01) ==
LOC: M INFU 12:24
PROVIDERS: ATTEND Family Medicine
DX: D50.9 Iron deficiency anemia, unspecified (principal); Z88.6 Allergy status to analgesic agent; Z88.8 Allergy status to other drugs, medicaments and biological substances
CPT/HCPCS: 96365; 96366; 96375; J1200; J1439

== ENCOUNTER → 2020-08-12 | Outpatient (CLI) | payer MEDICARE, OTHER ==
[~2020-08-12] MED LIST changes: -ALBUTEROL SULFATE 2.5 MG/0.5 ML INH NEB SOLN INH PRN; -EPINEPHrine INJ 1 MG/ML 1ML AMP IM PRN; -diphenhydrAMINE 50MG/ML VIAL (J1200) IV PRN; -methylPREDNISolone 125MG 2ML VIAL IV PRN
--- NOTE | 2020-08-12 11:38 | REP ---
INDICATION: R06.2 WHEEZING COUGHING FATIGUE. COMPARISON: Comparison chest x-ray July 09, 2020. TECHNIQUE: Two views.. FINDINGS: Patient is status post prior median sternotomy and a left atrial appendage clamp is noted in place unchanged. Heart is mildly enlarged. Cardiothoracic ratio measures 52.2%. Pulmonary vasculature is cephalized. Interstitial markings are prominent in the bases bilaterally, more so than on the July 09, 2020 study. This is consistent with mild interstitial edema. There is slight blunting of the right pleural angle. Coarse fibrosis is again seen in the left perihilar region. No new infiltrate is noted. IMPRESSION: CHF pattern with cardiomegaly and mild interstitial edema. Small amount of right pleural fluid. Prior sternotomy.. <Electronically signed by Christiano Arriola > 08/12/20 [id number]
== END ==
LOC: M CLY 11:09
PROVIDERS: ATTEND Physician Assistant
DX: I51.7 Cardiomegaly (principal); R06.02 Shortness of breath; D50.9 Iron deficiency anemia, unspecified
CPT/HCPCS: 71046; 80053; 83540; 85025; G0463

== ENCOUNTER → 2020-08-12 | Outpatient (REF) | payer MEDICARE, OTHER ==
[2020-08-12 16:27] LABS: BASO % 0.8 % (0.0-1.0); EOS # 0.2 10^3/uL (0.0-0.5); EOS % 3.1 % (0.0-3.0); HEMATOCRIT 35.4 % (42.0-52.0); HEMOGLOBIN 10.8 g/dl (13.5-17.5); LYMPH % 39.4 % (24.0-44.0); MEAN CORPUSCULAR HEMOGLOBIN 25.9 pg (27.0-33.0); MEAN CORPUSCULAR HGB CONC 30.5 g/dl (32.0-36.5); MEAN CORPUSCULAR VOLUME 84.9 fl (80.0-96.0); MONO # 0.6 10^3/uL (0.0-0.8); MONO % 12.1 % (2.0-8.0); NEUTROPHILS # 2.3 10^3/uL (1.5-8.5); NEUTROPHILS % 44.2 % (36.0-66.0); PLATELET COUNT, AUTOMATED 280 10^3/uL (150-450); RED BLOOD COUNT 4.17 10^6/uL (4.30-6.10); WHITE BLOOD COUNT 5.1 10^3/uL (4.0-10.0)
[2020-08-12 16:44] LABS: ALBUMIN 3.7 GM/DL (3.2-5.2); ALT/SGPT 25 U/L (12-78); BILIRUBIN,TOTAL 0.8 MG/DL (0.2-1.0); BLOOD UREA NITROGEN 11 MG/DL (7-18); CALCIUM LEVEL 6.5 MG/DL (8.8-10.2); CARBON DIOXIDE LEVEL 32 MEQ/L (21-32); CHLORIDE LEVEL 107 MEQ/L (98-107); CREATININE FOR GFR 0.72 MG/DL (0.70-1.30); GLOMERULAR FILTRATION RATE > 60.0 (>49); GLUCOSE, FASTING 110 MG/DL (70-100); IRON (FE) 56 UG/DL (65-175); POTASSIUM SERUM 4.2 MEQ/L (3.5-5.1); SODIUM LEVEL 143 MEQ/L (136-145)
[2020-08-12 17:19] LABS: PLATELET ESTIMATE NORMAL (NORMAL)
[2020-08-12 17:20] LABS: MICROCYTOSIS 2+
[2020-08-12 17:21] LABS: ANISOCYTOSIS 3+; POIKILOCYTOSIS 1+
[2020-08-12 17:27] LABS: HYPOCHROMASIA 1+
== END ==
LOC: M SFHCCLAY 10:55
PROVIDERS: ATTEND Physician Assistant
DX: D50.9 Iron deficiency anemia, unspecified (principal); R06.2 Wheezing

== ENCOUNTER → 2020-08-26 | Outpatient (REF) | payer MEDICARE, OTHER ==
[2020-08-26 12:09] LABS: ALBUMIN 3.8 GM/DL (3.2-5.2); ALT/SGPT 38 U/L (12-78); BILIRUBIN,TOTAL 0.7 MG/DL (0.2-1.0); BLOOD UREA NITROGEN 11 MG/DL (7-18); CALCIUM LEVEL 7.5 MG/DL (8.8-10.2); CARBON DIOXIDE LEVEL 29 MEQ/L (21-32); CHLORIDE LEVEL 104 MEQ/L (98-107); CREATININE FOR GFR 0.84 MG/DL (0.70-1.30); FREE T4 1.41 NG/DL (0.76-1.46); GLOMERULAR FILTRATION RATE > 60.0 (>49); GLUCOSE, FASTING 126 MG/DL (70-100); MAGNESIUM LEVEL 2.2 MG/DL (1.8-2.4); POTASSIUM SERUM 3.9 MEQ/L (3.5-5.1); SODIUM LEVEL 142 MEQ/L (136-145); THYROID STIMULATING HORMONE 0.044 uIU/ML (0.358-3.740); TOTAL PROTEIN 7.4 GM/DL (6.4-8.2)
[2020-08-26 13:24] LABS: PTH INTACT 73.9 PG/ML (18.5-88.0); TOTAL T3 141.8 NG/DL (60.0-181.0)
== END ==
LOC: M SFHCCLAY 09:21
PROVIDERS: ATTEND Family Medicine
DX: E83.51 Hypocalcemia (principal); E89.0 Postprocedural hypothyroidism

== ENCOUNTER 2020-11-09 19:05 | Emergency (ER) | payer MEDICARE, OTHER ==
[~2020-11-09] VITALS: Ht 162.6 cm; Wt 84.4 kg
[2020-11-09] MEDS ORDERED: FURO40TA2 (19:19)
[2020-11-09] MEDS ORDERED: CALC500T68 PO (19:19)
[2020-11-09] MEDS ORDERED: PRAD150C6 (19:19)
[2020-11-09] MEDS ORDERED: ONDA4TAB6 PO (19:20)
[2020-11-09] MEDS ORDERED: MECL-86 PO (19:20)
[2020-11-09 20:01] LABS: BASO % 0.4 % (0.0-1.0); EOS # 0.3 10^3/uL (0.0-0.5); HEMATOCRIT 33.7 % (42.0-52.0); HEMOGLOBIN 10.1 g/dl (13.5-17.5); LYMPH # 3.1 10^3/uL (1.5-5.0); LYMPH % 32.8 % (24.0-44.0); MEAN CORPUSCULAR HEMOGLOBIN 22.5 pg (27.0-33.0); MEAN CORPUSCULAR VOLUME 75.1 fl (80.0-96.0); MONO # 0.9 10^3/uL (0.0-0.8); MONO % 9.1 % (2.0-8.0); NEUTROPHILS # 5.1 10^3/uL (1.5-8.5); NEUTROPHILS % 54.5 % (36.0-66.0); PLATELET COUNT, AUTOMATED 305 10^3/uL (150-450); RED BLOOD COUNT 4.49 10^6/uL (4.30-6.10); WHITE BLOOD COUNT 9.4 10^3/uL (4.0-10.0)
[2020-11-09 20:33] LABS: BLOOD UREA NITROGEN 10 MG/DL (7-18); CALCIUM LEVEL 7.3 MG/DL (8.8-10.2); CARBON DIOXIDE LEVEL 30 MEQ/L (21-32); CHLORIDE LEVEL 104 MEQ/L (98-107); CK-MB VALUE MASS 1.1 NG/ML (<3.6); CPK CREATINE PHOSPHOKINASE 135 U/L (39-308); CREATININE FOR GFR 0.74 MG/DL (0.70-1.30); GLOMERULAR FILTRATION RATE > 60.0 (>49); GLUCOSE, FASTING 112 MG/DL (70-100); MB/CK RELATIVE INDEX 0.81 (< OR =4); POTASSIUM SERUM 3.6 MEQ/L (3.5-5.1); SODIUM LEVEL 141 MEQ/L (136-145); TROPONIN I < 0.02 NG/ML (< 0.10)
--- NOTE | 2020-11-09 20:44 | ECGEPIP ---
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
--- NOTE | 2020-11-09 20:45 | REPVR ---
PROCEDURE INFORMATION: Exam: CT Head Without Contrast Exam date and time: 11/09/2020 7:24 PM Age: 70 years old Clinical indication: Dizziness TECHNIQUE: Imaging protocol: Computed tomography of the head without contrast. Radiation optimization: All CT scans at this facility use at least one of these dose optimization techniques: automated exposure control; mA and/or kV adjustment per patient size (includes targeted exams where dose is matched to clinical indication); or iterative reconstruction. COMPARISON: No relevant prior studies available. FINDINGS: Brain: There is no CT evidence for an acute large vessel territorial infarct. No acute intracranial hemorrhage is seen. No mass effect, midline shift, or herniation is noted. There are non-specific foci of low attenuation in the periventricular and subcortical white matter, which are likely the sequela of chronic small vessel ischemic injury. Cerebral ventricles: Normal for age. No hydrocephalus. Paranasal sinuses: The imaged portions of the sinuses are well aerated. No air-fluid levels are noted in the sinuses. Mastoid air cells: The mastoid air cells are well aerated. Orbital cavity: The globes and orbits are intact and normal in appearance. Vasculature: There are atherosclerotic calcifications of the intracranial portion of the vertebral arteries and internal carotid arteries. Bones/joints: The skull is intact. No suspicious osteolytic or osteoblastic lesion. Soft tissues: Unremarkable. No soft tissue fluid collection. IMPRESSION: No acute intracranial abnormality. Electronically signed by: Rakesh Talamantes On 11/09/2020 20:45:19 PM
[2020-11-10] MEDS ORDERED: LORazepam 2 MG/ML VIAL IV STA (02:02)
[2020-11-10] MEDS ORDERED: LORazepam 2 MG/ML VIAL As Ordered ONE (02:05)
--- NOTE | 2020-11-10 03:00 | REPVR ---
PROCEDURE INFORMATION: Exam: MR Head Without Contrast Exam date and time: 11/10/2020 2:32 AM Age: 70 years old Clinical indication: Dizziness and intractable vertigo. TECHNIQUE: Imaging protocol: MR of the head without contrast. COMPARISON: CT Head without contrast 11/09/2020 7:22 PM FINDINGS: Limitations: Motion artifact degrades the image quality of several sequences obtained. Brain: There is no acute infarct. No acute intracranial hemorrhage is seen. No mass, mass effect, midline shift, or herniation is noted. There are mild non-specific foci of T2 and FLAIR hyperintensity in the periventricular and subcortical white matter, which are likely the sequela of chronic small vessel ischemic injury. Cerebral ventricles: Normal for age. No hydrocephalus. Bones/joints: Unremarkable. Paranasal sinuses: The imaged portions of the sinuses are well aerated. No air-fluid levels are noted in the sinuses. Mastoid air cells: The mastoid air cells are well aerated. Orbital cavity: Unremarkable. Soft tissues: Unremarkable. IMPRESSION: 1. No acute intracranial abnormality or mass. 2. Mild chronic microangiopathic changes. Electronically signed by: Rakesh Talamantes On 11/10/2020 03:00:03 AM
[2020-11-10 03:45] VITALS: BP 130/72
--- NOTE | 2020-11-10 05:07 | REPVR ---
PROCEDURE INFORMATION: Exam: MRA Head Without Contrast; Arteriography Exam date and time: 11/10/2020 2:32 AM Age: 70 years old Clinical indication: Vertigo; Additional info: Intractable vertigo TECHNIQUE: Imaging protocol: Magnetic resonance angiography head without contrast. Exam focused on the arteries. COMPARISON: CT Head without contrast 11/09/2020 7:22 PM FINDINGS: ANTERIOR CIRCULATION: Right internal carotid artery: No occlusion, stenosis, or aneurysm. Right middle cerebral artery: No occlusion, stenosis, or aneurysm. Right anterior cerebral artery: No occlusion, stenosis, or aneurysm. Left internal carotid artery: No occlusion, stenosis, or aneurysm. Left middle cerebral artery: No occlusion, stenosis, or aneurysm. Left anterior cerebral artery: No occlusion, stenosis, or aneurysm. POSTERIOR CIRCULATION: Right vertebral artery: No occlusion, stenosis, or dissection. Left vertebral artery: No occlusion, stenosis, or dissection. Basilar artery: No occlusion, significant stenosis, or aneurysm. Right posterior cerebral artery: No occlusion, stenosis, or aneurysm. Left posterior cerebral artery: No occlusion, stenosis, or aneurysm. IMPRESSION: Normal appearance of the intracranial arteries. Electronically signed by: Kiara Campbell On 11/10/2020 05:06:39 AM
== END 2020-11-10 05:50 | disposition home or self-care (01) ==
LOC: M ED 19:05
DX: R42 Dizziness and giddiness (principal); I48.91 Unspecified atrial fibrillation; I25.10 Atherosclerotic heart disease of native coronary artery without angina pectoris; I25.2 Old myocardial infarction; I10 Essential (primary) hypertension; E78.5 Hyperlipidemia, unspecified; Z95.1 Presence of aortocoronary bypass graft; Z85.850 Personal history of malignant neoplasm of thyroid; Z79.899 Other long term (current) drug therapy; Z88.8 Allergy status to other drugs, medicaments and biological substances
CPT/HCPCS: 70450; 70544; 70551; 80048; 82550; 82553; 84484; 85025; 93005; 93041; 94760; 96374; 99285; J2060

== ENCOUNTER → 2020-12-30 | Outpatient (REF) | payer MEDICARE, OTHER ==
[~2020-12-30] MED LIST changes: +CALC500T68 PO; +FURO40TA2; +MECL-86 PO; +ONDA4TAB6 PO; +PRAD150C6
[2020-12-30 16:33] LABS: HEPATITIS B SURFACE ANTIGEN NEGATIVE (NEGATIVE)
== END ==
LOC: M LABDRAWC 15:53
PROVIDERS: ATTEND Internal Medicine Gastroenterology
DX: K50.10 Crohn's disease of large intestine without complications (principal)

== ENCOUNTER → 2021-01-06 | Outpatient (CLI) | payer MEDICARE, OTHER ==
--- NOTE | 2021-01-06 08:48 | REP ---
INDICATION: INTERSTITIAL PULMONARY DISEASE, UNSPECIFIED. COMPARISON: CT chest, 02/06/2020. TECHNIQUE: Imaging protocol: Computed tomography of the chest without IV contrast. Contiguous 3 mm thick axial projection images were obtained through the chest. 2D sagittal and coronal reconstructions were performed. Radiation optimization: All CT scans at this facility use at least one of these dose optimization techniques: automated exposure control; mA and/or kV adjustment per patient size (includes targeted exams where dose is matched to clinical indication); or iterative reconstruction. FINDINGS: Lower neck: The thyroid gland is unremarkable. There are few reactive supraclavicular lymph nodes bilaterally. Mediastinum: There are multiple reactive mediastinal lymph nodes, the largest, a right paratracheal node, measuring 18 x 17 mm. Heart/thoracic aorta: The heart is enlarged. There is no pericardial effusion. There is calcific vascular disease of the thoracic aorta and coronary arteries. Status post CABG surgery. There is a left atrial appendage closure clip. Upper abdomen: There is calcific vascular disease of the abdominal aorta. There is a 16 mm in diameter left adrenal adenoma. The gallbladder is surgically absent. Thoracic esophagus: There is a small hiatal hernia. Chest wall and axilla: The soft tissues of the chest wall appear unremarkable. There is no axillary lymphadenopathy. Status post median sternotomy. There is mild multilevel degenerative disc disease of the thoracic spine. Lung parenchyma: There is pulmonary venous hypertension and basilar predominant interstitial pulmonary edema consistent with congestive heart failure. There is mild basilar alveolar edema without pleural effusion. There is apparent worsening edema when compared with the prior CT examination. There is pleural-parenchymal scarring in the anterior segment of the upper lobe of the left lung, medially, may be postsurgical. IMPRESSION: 1. Findings consistent with congestive heart failure, as described. 2. Scarring in the upper lobe of the left lung likely postoperative. 3. Reactive supraclavicular and mediastinal lymph nodes. 4. Small hiatal hernia. 5. Stable left adrenal adenoma. 6. Other findings as noted. <Electronically signed by Teodoro Broderick > 01/06/21 [id number]
== END ==
LOC: M PLAIMG 07:59
PROVIDERS: ATTEND Internal Medicine Pulmonary Disease
DX: J84.10 Pulmonary fibrosis, unspecified (principal)

== ENCOUNTER → 2021-01-22 | Outpatient (REF) | payer MEDICARE, OTHER ==
[2021-01-22 17:10] LABS: C REACTIVE PROTEIN QUANTITATIV < 0.30 MG/DL (0.00-0.30); RHEUMATOID FACTOR QUANT < 10.0 IU/ML (<15.0)
[2021-01-26 00:06] LABS: ANA (HEP2) Negative (.); CYCLIC CITRULLINATED PEPTIDE 7 units (0-19); Lyme Disease IgG/IgM Antibodie <0.91 ISR (0.00-0.90); Lyme Disease IgM Ab Quantitati <0.80 index (0.00-0.79)
== END ==
LOC: M SFHCCLAY 12:05
PROVIDERS: ATTEND Family Medicine
DX: M79.10 Myalgia, unspecified site (principal)
CPT/HCPCS: 85652; 86038; 86140; 86200; 86431; 86617; G0463

== ENCOUNTER 2021-02-26 10:55 | Outpatient (CLI) | payer MEDICARE, OTHER ==
[~2021-02-26] VITALS: Ht 162.6 cm; Wt 84.0 kg
[~2021-02-26 10:55] MED LIST changes: +ALBUTEROL SULFATE 2.5 MG/0.5 ML INH NEB SOLN INH PRN; +EPINEPHrine INJ 1 MG/ML 1ML AMP IM PRN; +diphenhydrAMINE 50MG/ML VIAL (J1200) IV PRN; +methylPREDNISolone 125MG 2ML VIAL IV PRN
[2021-02-26] MEDS ORDERED: FERRIC CARBOXYMALTOSE INJ 750 MG, VIAL MATE ADAPTER 1 EACH in NS 250 ML IV ONE (11:00)
[2021-02-26] MEDS ORDERED: NS 1,000 ML IV SCH (11:00)
[2021-02-26 11:40] VITALS: BP 138/78
[2021-02-26 12:30] VITALS: BP 126/64
[2021-02-26 13:05] VITALS: BP 140/68
== END 2021-02-26 13:05 | disposition home or self-care (01) ==
LOC: M INFU 10:55
PROVIDERS: ATTEND Internal Medicine Cardiovascular Disease
DX: D50.9 Iron deficiency anemia, unspecified (principal); Z88.6 Allergy status to analgesic agent
CPT/HCPCS: 96365; J1439

== ENCOUNTER 2021-03-08 10:41 | Inpatient (IN) | payer MEDICARE, OTHER ==
[~2021-03-08] VITALS: Ht 162.6 cm; Wt 84.7 kg
[~2021-03-08 10:41] MED LIST changes: -ALBUTEROL SULFATE 2.5 MG/0.5 ML INH NEB SOLN INH PRN; -BISO10TA4 PO; +BISO1TAB19 PO; -EPINEPHrine INJ 1 MG/ML 1ML AMP IM PRN; -FURO40TA2; +FURO40TA2 PO; -PRAD150C6; -diphenhydrAMINE 50MG/ML VIAL (J1200) IV PRN; -methylPREDNISolone 125MG 2ML VIAL IV PRN
[2021-03-08] MEDS ORDERED: ISOVUE-370 76% 100ML VIAL As Ordered ONE (12:23)
[2021-03-08 12:34] LABS: BASO # 0.1 10^3/uL (0.0-0.2); BASO % 0.7 % (0.0-1.0); EOS # 0.2 10^3/uL (0.0-0.5); EOS % 2.1 % (0.0-3.0); HEMOGLOBIN 11.2 g/dl (13.5-17.5); LYMPH # 2.5 10^3/uL (1.5-5.0); LYMPH % 36.1 % (24.0-44.0); MEAN CORPUSCULAR HEMOGLOBIN 24.3 pg (27.0-33.0); MEAN CORPUSCULAR VOLUME 76.1 fl (80.0-96.0); MONO # 0.7 10^3/uL (0.0-0.8); MONO % 9.9 % (2.0-8.0); NEUTROPHILS # 3.6 10^3/uL (1.5-8.5); NEUTROPHILS % 50.9 % (36.0-66.0); PLATELET COUNT, AUTOMATED 200 10^3/uL (150-450)
[2021-03-08 12:41] LABS: INR 1.2; PROTHROMBIN TIME 15.6 SECONDS (12.7-14.5)
[2021-03-08 12:42] LABS: PARTIAL THROMBOPLASTIN TIME 37.6 SECONDS (25.9-37.0)
[2021-03-08 12:53] LABS: CK-MB VALUE MASS < 1.0 NG/ML (<3.6); CPK CREATINE PHOSPHOKINASE 193 U/L (39-308); MB/CK RELATIVE INDEX 0.52 (< OR =4); TROPONIN I < 0.02 NG/ML (< 0.10)
[2021-03-08 13:02] LABS: ALBUMIN 3.5 GM/DL (3.2-5.2); ALT/SGPT 32 U/L (12-78); BILIRUBIN,DIRECT 0.2 MG/DL (0.0-0.2); BILIRUBIN,TOTAL 0.6 MG/DL (0.2-1.0); BLOOD UREA NITROGEN 13 MG/DL (7-18); CALCIUM LEVEL 6.3 MG/DL (8.8-10.2); CARBON DIOXIDE LEVEL 31 MEQ/L (21-32); CHLORIDE LEVEL 104 MEQ/L (98-107); CREATININE FOR GFR 0.81 MG/DL (0.70-1.30); GLOMERULAR FILTRATION RATE > 60.0 (>49); GLUCOSE, FASTING 93 MG/DL (70-100); LIPASE 90 U/L (73-393); MAGNESIUM LEVEL 1.9 MG/DL (1.8-2.4); POTASSIUM SERUM 3.7 MEQ/L (3.5-5.1); SODIUM LEVEL 142 MEQ/L (136-145); TOTAL PROTEIN 7.3 GM/DL (6.4-8.2)
[2021-03-08 13:57] LABS: PHOSPHORUS LEVEL 1.9 MG/DL (2.5-4.9)
[2021-03-08] MEDS ORDERED: CALCIUM GLUCONATE 1,000 MG in D5W MINI-BAG PLUS 100 ML IV ONE ×2 (14:00→22:00)
[2021-03-08] MEDS ORDERED: THERTAB21 PO (14:20)
[2021-03-08] MEDS ORDERED: SYNT150T PO (14:20)
[2021-03-08] MEDS ORDERED: LEXA5TAB13 PO (14:20)
[2021-03-08 14:22] LABS: TOTAL 25(OH) VITAMIN D 29.4 NG/ML (30.0-100.0)
[2021-03-08] MEDS: CALCIUM CARBONATE 500 MG CHEW U/D PO SCH ×2 (14:22→21:16)
[2021-03-08 14:23] LABS: PTH INTACT 73.9 PG/ML (18.5-88.0)
[2021-03-08 14:25] LABS: RSV AMPLIFICATION NEGATIVE (NEGATIVE)
[2021-03-08] MEDS ORDERED: HOME MED LIST COMPLETE! XX SCH (14:25)
[2021-03-08] MEDS ORDERED: MECLIZINE 25 MG TABLET PO PRN (15:10)
[2021-03-08] MEDS ORDERED: SYMBICORT 80/4.5MCG INHALER 6GM INH PRN (15:10)
[2021-03-08] MEDS ORDERED: ONDANSETRON 4 MG ORAL DISINTEGRATING TAB PO PRN (15:10)
[2021-03-08 20:12] LABS: ALBUMIN 3.6 GM/DL (3.2-5.2); ALT/SGPT 31 U/L (12-78); BILIRUBIN,TOTAL 0.6 MG/DL (0.2-1.0); BLOOD UREA NITROGEN 12 MG/DL (7-18); CALCIUM LEVEL 6.7 MG/DL (8.8-10.2); CARBON DIOXIDE LEVEL 31 MEQ/L (21-32); CHLORIDE LEVEL 103 MEQ/L (98-107); CREATININE FOR GFR 0.91 MG/DL (0.70-1.30); GLOMERULAR FILTRATION RATE > 60.0 (>49); GLUCOSE, FASTING 152 MG/DL (70-100); POTASSIUM SERUM 3.2 MEQ/L (3.5-5.1); SODIUM LEVEL 141 MEQ/L (136-145); TOTAL PROTEIN 7.6 GM/DL (6.4-8.2)
[2021-03-08 20:34] VITALS: BP 146/85
[2021-03-08] MEDS: CARVedilol 12.5 MG TAB PO SCH (21:13)
[2021-03-08] MEDS: DABIGATRAN ETEXILATE 75 MG CAP (PRADAXA) PO SCH (21:16)
[2021-03-08] MEDS: MAGNESIUM OXIDE 400MG TAB (MAG-OX) PO SCH (21:16)
[2021-03-08] MEDS ORDERED: POTASSIUM CHLORIDE 10MEQ SR TABLET PO ONE (21:40)
[2021-03-08] MEDS ORDERED: POTASSIUM PHOSPHATE INJ 15 MMOL in D5W 250 ML IV ONE (23:00)
[2021-03-09] MEDS ORDERED: LORATADINE 5 MG HALF-TAB PO PRN (00:10)
[2021-03-09] MEDS: FLUTICASONE PROP 0.05% NASAL SPRAY 16 GM (FLONASE) NARES SCH ×3 (00:10→20:07)
[2021-03-09] MEDS: BENZONATATE 100MG CAPSULE PO PRN ×2 (00:35→21:41)
[2021-03-09 01:36] LABS: BLOOD UREA NITROGEN 15 MG/DL (7-18); CALCIUM LEVEL 6.8 MG/DL (8.8-10.2); CARBON DIOXIDE LEVEL 29 MEQ/L (21-32); CHLORIDE LEVEL 104 MEQ/L (98-107); CREATININE FOR GFR 0.82 MG/DL (0.70-1.30); GLOMERULAR FILTRATION RATE > 60.0 (>49); GLUCOSE, FASTING 106 MG/DL (70-100); POTASSIUM SERUM 3.2 MEQ/L (3.5-5.1); SODIUM LEVEL 140 MEQ/L (136-145)
[2021-03-09] MEDS: CARVedilol 12.5 MG TAB PO SCH ×3 (05:37→21:41)
[2021-03-09] MEDS: LEVOTHYROXINE 150MCG TABLET (0.15MG) PO SCH (05:37)
[2021-03-09 06:00] VITALS: BP 119/69
[2021-03-09 06:20] LABS: HEMATOCRIT 34.7 % (42.0-52.0); HEMOGLOBIN 11.1 g/dl (13.5-17.5); MEAN CORPUSCULAR HEMOGLOBIN 24.4 pg (27.0-33.0); MEAN CORPUSCULAR VOLUME 76.4 fl (80.0-96.0); PLATELET COUNT, AUTOMATED 188 10^3/uL (150-450); RED BLOOD COUNT 4.54 10^6/uL (4.30-6.10); WHITE BLOOD COUNT 5.7 10^3/uL (4.0-10.0)
[2021-03-09 06:47] LABS: ALBUMIN 3.2 GM/DL (3.2-5.2); ALT/SGPT 28 U/L (12-78); BILIRUBIN,TOTAL 0.4 MG/DL (0.2-1.0); BLOOD UREA NITROGEN 11 MG/DL (7-18); CALCIUM LEVEL 6.9 MG/DL (8.8-10.2); CARBON DIOXIDE LEVEL 31 MEQ/L (21-32); CHLORIDE LEVEL 103 MEQ/L (98-107); CREATININE FOR GFR 0.84 MG/DL (0.70-1.30); GLOMERULAR FILTRATION RATE > 60.0 (>49); GLUCOSE, FASTING 102 MG/DL (70-100); MAGNESIUM LEVEL 2.2 MG/DL (1.8-2.4); PHOSPHORUS LEVEL 2.8 MG/DL (2.5-4.9); POTASSIUM SERUM 3.4 MEQ/L (3.5-5.1); SODIUM LEVEL 139 MEQ/L (136-145); TOTAL PROTEIN 7.3 GM/DL (6.4-8.2)
[2021-03-09] MEDS: FUROSEMIDE 40 MG TAB PO SCH ×2 (09:31→15:05)
[2021-03-09] MEDS: ATORVASTATIN 20 MG TAB PO SCH (09:31)
[2021-03-09] MEDS: MAGNESIUM OXIDE 400MG TAB (MAG-OX) PO SCH ×2 (09:31→20:06)
[2021-03-09] MEDS: MULTIVITAMINS/MINERALS THERAP 1 TAB PO SCH (09:31)
[2021-03-09] MEDS: ESCITALOPRAM OXALATE 5MG TABLET (LEXAPRO) PO SCH (09:31)
[2021-03-09] MEDS: CALCIUM CARBONATE 500 MG CHEW U/D PO SCH ×3 (09:31→20:06)
[2021-03-09] MEDS: OMEPRAZOLE 20MG CAP PO SCH (09:31)
[2021-03-09] MEDS: POTASSIUM CHLORIDE 10MEQ SR TABLET PO SCH (09:32)
[2021-03-09] MEDS: DABIGATRAN ETEXILATE 75 MG CAP (PRADAXA) PO SCH ×2 (09:32→20:06)
[2021-03-09] MEDS: DIGOXIN 0.125 MG TAB PO SCH (09:32)
[2021-03-09] MEDS ORDERED: POTASSIUM CHLORIDE 10MEQ SR TABLET PO ONE (11:00)
[2021-03-09] MEDS ORDERED: CALCIUM GLUCONATE 1,000 MG in D5W MINI-BAG PLUS 100 ML IV ONE (11:00)
[2021-03-09 14:00] VITALS: BP 124/75
[2021-03-09 14:46] LABS: IRON (FE) 109 UG/DL (65-175)
[2021-03-09 20:49] VITALS: BP 120/71
[2021-03-09 22:41] LABS: BLOOD UREA NITROGEN 10 MG/DL (7-18); CALCIUM LEVEL 6.4 MG/DL (8.8-10.2); CARBON DIOXIDE LEVEL 29 MEQ/L (21-32); CHLORIDE LEVEL 109 MEQ/L (98-107); GLOMERULAR FILTRATION RATE > 60.0 (>49); GLUCOSE, FASTING 93 MG/DL (70-100); POTASSIUM SERUM 3.8 MEQ/L (3.5-5.1); SODIUM LEVEL 145 MEQ/L (136-145)
[2021-03-10 05:40] VITALS: BP 115/72
[2021-03-10 05:50] LABS: HEMOGLOBIN 10.8 g/dl (13.5-17.5); MEAN CORPUSCULAR HEMOGLOBIN 24.7 pg (27.0-33.0); MEAN CORPUSCULAR HGB CONC 31.8 g/dl (32.0-36.5); MEAN CORPUSCULAR VOLUME 77.6 fl (80.0-96.0); PLATELET COUNT, AUTOMATED 176 10^3/uL (150-450); RED BLOOD COUNT 4.38 10^6/uL (4.30-6.10); WHITE BLOOD COUNT 7.3 10^3/uL (4.0-10.0)
[2021-03-10] MEDS: CARVedilol 12.5 MG TAB PO SCH ×2 (06:14→14:37)
[2021-03-10] MEDS: LEVOTHYROXINE 150MCG TABLET (0.15MG) PO SCH (06:21)
[2021-03-10 06:22] LABS: ALBUMIN 2.9 GM/DL (3.2-5.2); ALT/SGPT 23 U/L (12-78); BILIRUBIN,TOTAL 0.4 MG/DL (0.2-1.0); BLOOD UREA NITROGEN 9 MG/DL (7-18); CALCIUM LEVEL 6.5 MG/DL (8.8-10.2); CARBON DIOXIDE LEVEL 30 MEQ/L (21-32); CHLORIDE LEVEL 109 MEQ/L (98-107); CREATININE FOR GFR 0.68 MG/DL (0.70-1.30); GLOMERULAR FILTRATION RATE > 60.0 (>49); GLUCOSE, FASTING 88 MG/DL (70-100); POTASSIUM SERUM 3.8 MEQ/L (3.5-5.1); SODIUM LEVEL 143 MEQ/L (136-145); TOTAL PROTEIN 6.5 GM/DL (6.4-8.2)
[2021-03-10 06:28] VITALS: BP 120/78
[2021-03-10] MEDS: FUROSEMIDE 40 MG TAB PO SCH ×2 (08:53→14:36)
[2021-03-10] MEDS: DIGOXIN 0.125 MG TAB PO SCH (08:53)
[2021-03-10] MEDS: OMEPRAZOLE 20MG CAP PO SCH (08:53)
[2021-03-10] MEDS: MAGNESIUM OXIDE 400MG TAB (MAG-OX) PO SCH (08:53)
[2021-03-10] MEDS: ESCITALOPRAM OXALATE 5MG TABLET (LEXAPRO) PO SCH (08:53)
[2021-03-10] MEDS: MULTIVITAMINS/MINERALS THERAP 1 TAB PO SCH (08:53)
[2021-03-10] MEDS: DABIGATRAN ETEXILATE 75 MG CAP (PRADAXA) PO SCH (08:54)
[2021-03-10] MEDS: ATORVASTATIN 20 MG TAB PO SCH (08:54)
[2021-03-10] MEDS: FLUTICASONE PROP 0.05% NASAL SPRAY 16 GM (FLONASE) NARES SCH (08:54)
[2021-03-10] MEDS: CALCIUM CARBONATE 500 MG CHEW U/D PO SCH (08:54)
[2021-03-10] MEDS: POTASSIUM CHLORIDE 10MEQ SR TABLET PO SCH (08:54)
[2021-03-10] MEDS ORDERED: FUROSEMIDE 20MG/2ML VIAL (J1940) IV ONE (12:25)
[2021-03-10] MEDS ORDERED: IPRATROPIUM 0.5MG/ALBUTEROL 2.5MG INH SOL UD 3ML (DUONEB) NEB ONE (12:25)
[2021-03-10] MEDS ORDERED: CALCD50TA PO (12:26)
[2021-03-10] MEDS ORDERED: CALCIUM GLUCONATE 1,000 MG in D5W MINI-BAG PLUS 100 ML IV ONE (12:30)
[2021-03-10 14:00] VITALS: BP 122/70
[2021-03-10 14:37] VITALS: BP 122/70
[2021-03-10] MEDS ORDERED: CALCIUM/VITAMIN D 500 MG TAB PO SCH (16:00)
== END 2021-03-10 15:05 | disposition home or self-care (01) | DRG 641 ==
LOC: M ED 11:49 → M ED INP 11:50 → ENRESERV 16:30 → M MSPAV 20:35 → OBSVTOIN 03-09 14:29 → EEVIPCON 03-09 14:29
PROVIDERS: ADMIT Internal Medicine; ATTEND Family Medicine
DX: E83.51 Hypocalcemia (principal); K50.90 Crohn's disease, unspecified, without complications; I50.22 Chronic systolic (congestive) heart failure; R20.0 Anesthesia of skin; I25.10 Atherosclerotic heart disease of native coronary artery without angina pectoris; E83.42 Hypomagnesemia; E87.6 Hypokalemia; G47.33 Obstructive sleep apnea (adult) (pediatric); E89.0 Postprocedural hypothyroidism; I48.91 Unspecified atrial fibrillation; D50.9 Iron deficiency anemia, unspecified; K21.9 Gastro-esophageal reflux disease without esophagitis; R42 Dizziness and giddiness; Z79.899 Other long term (current) drug therapy; Z88.6 Allergy status to analgesic agent; Z88.8 Allergy status to other drugs, medicaments and biological substances; Z95.1 Presence of aortocoronary bypass graft; Z85.850 Personal history of malignant neoplasm of thyroid; Z87.11 Personal history of peptic ulcer disease; Z90.49 Acquired absence of other specified parts of digestive tract

== ENCOUNTER → 2021-03-22 | Outpatient (REF) | payer MEDICARE, OTHER ==
[~2021-03-22] MED LIST changes: +BISO10TA4 PO; -BISO1TAB19 PO; +CALCD50TA PO; +SYNT150T PO; +THERTAB21 PO
[2021-03-23 12:21] LABS: ALBUMIN 3.6 GM/DL (3.2-5.2); ALT/SGPT 31 U/L (12-78); BILIRUBIN,TOTAL 0.6 MG/DL (0.2-1.0); BLOOD UREA NITROGEN 12 MG/DL (7-18); CARBON DIOXIDE LEVEL 33 MEQ/L (21-32); CHLORIDE LEVEL 103 MEQ/L (98-107); CREATININE FOR GFR 0.89 MG/DL (0.70-1.30); FREE T4 1.21 NG/DL (0.76-1.46); GLOMERULAR FILTRATION RATE > 60.0 (>49); GLUCOSE, FASTING 133 MG/DL (70-100); POTASSIUM SERUM 4.2 MEQ/L (3.5-5.1); SODIUM LEVEL 142 MEQ/L (136-145); THYROID STIMULATING HORMONE 0.145 uIU/ML (0.358-3.740); TOTAL PROTEIN 7.4 GM/DL (6.4-8.2)
== END ==
LOC: M SFHCCLAY 14:53
PROVIDERS: ATTEND Family Medicine
DX: E83.51 Hypocalcemia (principal); E89.0 Postprocedural hypothyroidism
CPT/HCPCS: 80053; 82652; 83735; 84439; 84443; G0463

== ENCOUNTER 2021-05-07 07:54 | Outpatient (CLI) | payer MEDICARE, OTHER ==
[~2021-05-07] VITALS: Ht 162.6 cm; Wt 88.5 kg
[~2021-05-07 07:54] MED LIST changes: +ALBUTEROL SULFATE 2.5 MG/0.5 ML INH NEB SOLN INH PRN; -BISO10TA4 PO; +BISO1TAB19 PO; +EPINEPHrine INJ 1 MG/ML 1ML AMP IM PRN; +diphenhydrAMINE 50MG/ML VIAL (J1200) IV PRN; +methylPREDNISolone 125MG 2ML VIAL IV PRN
[2021-05-07] MEDS ORDERED: NS 1,000 ML IV SCH (08:00)
[2021-05-07] MEDS ORDERED: FERRIC CARBOXYMALTOSE INJ 750 MG, VIAL MATE ADAPTER 1 EACH in NS 250 ML IV ONE (08:00)
[2021-05-07 08:35] VITALS: BP 124/78
[2021-05-07 09:05] VITALS: BP 122/75
[2021-05-07 10:30] VITALS: BP 128/60
== END 2021-05-07 10:30 | disposition home or self-care (01) ==
LOC: M INFU 07:54
PROVIDERS: ATTEND Internal Medicine Nephrology
DX: D50.9 Iron deficiency anemia, unspecified (principal); Z88.5 Allergy status to narcotic agent; Z88.6 Allergy status to analgesic agent
CPT/HCPCS: 96365; 96366; J1439

== ENCOUNTER 2021-05-14 11:30 | Outpatient (CLI) | payer MEDICARE, OTHER ==
[~2021-05-14] VITALS: Ht 162.6 cm; Wt 88.5 kg
[~2021-05-14 11:30] MED LIST changes: +FERRIC CARBOXYMALTOSE INJ 750 MG, VIAL MATE ADAPTER 1 EACH in NS 250 ML IV ONE; +NS 1,000 ML IV SCH
[2021-05-14 11:40] VITALS: BP 111/64
[2021-05-14 14:15] VITALS: BP 122/59
[2021-05-14 15:25] VITALS: BP 138/73
== END 2021-05-14 15:25 | disposition home or self-care (01) ==
LOC: M INFU 11:30
PROVIDERS: ATTEND Internal Medicine Nephrology
DX: D50.9 Iron deficiency anemia, unspecified (principal); Z88.6 Allergy status to analgesic agent; Z88.8 Allergy status to other drugs, medicaments and biological substances
CPT/HCPCS: 96365; 96366; J1439

== ENCOUNTER → 2021-06-17 | Outpatient (REF) | payer MEDICARE, OTHER ==
[~2021-06-17] MED LIST changes: -ALBUTEROL SULFATE 2.5 MG/0.5 ML INH NEB SOLN INH PRN; -EPINEPHrine INJ 1 MG/ML 1ML AMP IM PRN; -FERRIC CARBOXYMALTOSE INJ 750 MG, VIAL MATE ADAPTER 1 EACH in NS 250 ML IV ONE; -NS 1,000 ML IV SCH; -diphenhydrAMINE 50MG/ML VIAL (J1200) IV PRN; -methylPREDNISolone 125MG 2ML VIAL IV PRN
[2021-06-17 16:20] LABS: BASO # 0.1 10^3/uL (0.0-0.2); BASO % 0.9 % (0.0-1.0); EOS # 0.2 10^3/uL (0.0-0.5); EOS % 2.3 % (0.0-3.0); HEMATOCRIT 41.2 % (42.0-52.0); LYMPH # 3.2 10^3/uL (1.5-5.0); LYMPH % 41.2 % (24.0-44.0); MEAN CORPUSCULAR HGB CONC 31.6 g/dl (32.0-36.5); MEAN CORPUSCULAR VOLUME 94.9 fl (80.0-96.0); MONO # 0.7 10^3/uL (0.0-0.8); MONO % 8.8 % (2.0-8.0); NEUTROPHILS # 3.5 10^3/uL (1.5-8.5); NEUTROPHILS % 45.5 % (36.0-66.0); PLATELET COUNT, AUTOMATED 348 10^3/uL (150-450); RED BLOOD COUNT 4.34 10^6/uL (4.30-6.10); WHITE BLOOD COUNT 7.8 10^3/uL (4.0-10.0)
[2021-06-17 16:27] LABS: ALBUMIN 3.8 GM/DL (3.2-5.2); ALT/SGPT 72 U/L (12-78); BILIRUBIN,TOTAL 0.7 MG/DL (0.2-1.0); BLOOD UREA NITROGEN 11 MG/DL (7-18); CALCIUM LEVEL 8.6 MG/DL (8.8-10.2); CARBON DIOXIDE LEVEL 32 MEQ/L (21-32); CHLORIDE LEVEL 105 MEQ/L (98-107); CREATININE FOR GFR 0.82 MG/DL (0.70-1.30); GLOMERULAR FILTRATION RATE > 60.0 (>49); GLUCOSE, FASTING 89 MG/DL (70-100); IRON (FE) 74 UG/DL (65-175); POTASSIUM SERUM 4.7 MEQ/L (3.5-5.1); SODIUM LEVEL 140 MEQ/L (136-145)
== END ==
LOC: M SFHCCLAY 11:40
PROVIDERS: ATTEND Family Medicine
DX: E89.0 Postprocedural hypothyroidism (principal); D50.9 Iron deficiency anemia, unspecified; I11.9 Hypertensive heart disease without heart failure

== ENCOUNTER → 2021-07-01 | Outpatient (CLI) | payer MEDICARE, OTHER | LOC: M CLY 09:43 | PROVIDERS: ATTEND Family Medicine | DX: J18.9 Pneumonia, unspecified organism (principal); I51.7 Cardiomegaly ==

== ENCOUNTER → 2021-07-15 | Outpatient (REF) | payer MEDICARE, OTHER | LOC: M LABDRAWC 15:39 | PROVIDERS: ATTEND Internal Medicine Gastroenterology | DX: K50.10 Crohn's disease of large intestine without complications (principal) ==

== ENCOUNTER → 2021-07-15 | Outpatient (CLI) | payer MEDICARE, OTHER | LOC: M CLY 11:07 | PROVIDERS: ATTEND Family Medicine | DX: J18.9 Pneumonia, unspecified organism (principal) ==

== ENCOUNTER → 2021-10-12 | Outpatient (REF) | payer MEDICARE, OTHER ==
[2021-10-12 16:03] LABS: BASO % 0.7 % (0.0-1.0); EOS # 0.2 10^3/uL (0.0-0.5); EOS % 3.1 % (0.0-3.0); HEMATOCRIT 31.5 % (42.0-52.0); HEMOGLOBIN 9.2 g/dl (13.5-17.5); LYMPH # 2.5 10^3/uL (1.5-5.0); LYMPH % 42.5 % (24.0-44.0); MEAN CORPUSCULAR HEMOGLOBIN 23.1 pg (27.0-33.0); MEAN CORPUSCULAR HGB CONC 29.2 g/dl (32.0-36.5); MEAN CORPUSCULAR VOLUME 78.9 fl (80.0-96.0); MONO # 0.5 10^3/uL (0.0-0.8); NEUTROPHILS # 2.6 10^3/uL (1.5-8.5); NEUTROPHILS % 44.4 % (36.0-66.0); PLATELET COUNT, AUTOMATED 301 10^3/uL (150-450); RED BLOOD COUNT 3.99 10^6/uL (4.30-6.10); WHITE BLOOD COUNT 5.8 10^3/uL (4.0-10.0)
[2021-10-12 16:32] LABS: ALBUMIN 3.5 GM/DL (3.2-5.2); ALT/SGPT 26 U/L (12-78); BILIRUBIN,TOTAL 0.7 MG/DL (0.2-1.0); BLOOD UREA NITROGEN 10 MG/DL (7-18); CALCIUM LEVEL 7.7 MG/DL (8.8-10.2); CARBON DIOXIDE LEVEL 31 MEQ/L (21-32); CHLORIDE LEVEL 107 MEQ/L (98-107); CREATININE FOR GFR 0.86 MG/DL (0.70-1.30); FREE T4 1.27 NG/DL (0.76-1.46); GLOMERULAR FILTRATION RATE > 60.0 (>49); GLUCOSE, FASTING 108 MG/DL (70-100); IRON (FE) 18 UG/DL (65-175); SODIUM LEVEL 144 MEQ/L (136-145); THYROID STIMULATING HORMONE 0.583 uIU/ML (0.358-3.740); TOTAL PROTEIN 7.4 GM/DL (6.4-8.2)
[2021-10-12 16:54] LABS: TOTAL T3 76.1 NG/DL (60.0-181.0)
== END ==
LOC: M SFHCCLAY 09:25
PROVIDERS: ATTEND Family Medicine
DX: D50.9 Iron deficiency anemia, unspecified (principal); E83.51 Hypocalcemia; E89.0 Postprocedural hypothyroidism

== ENCOUNTER → 2021-11-30 | Outpatient (REF) | payer MEDICARE, OTHER ==
[2021-11-30 18:23] LABS: BASO % 0.6 % (0.0-1.0); EOS # 0.2 10^3/uL (0.0-0.5); EOS % 2.1 % (0.0-3.0); HEMATOCRIT 39.7 % (42.0-52.0); HEMOGLOBIN 12.4 g/dl (13.5-17.5); LYMPH # 3.1 10^3/uL (1.5-5.0); LYMPH % 43.2 % (24.0-44.0); MEAN CORPUSCULAR HEMOGLOBIN 26.3 pg (27.0-33.0); MEAN CORPUSCULAR HGB CONC 31.2 g/dl (32.0-36.5); MEAN CORPUSCULAR VOLUME 84.1 fl (80.0-96.0); MONO # 0.8 10^3/uL (0.0-0.8); MONO % 11.3 % (2.0-8.0); NEUTROPHILS # 3.1 10^3/uL (1.5-8.5); NEUTROPHILS % 42.5 % (36.0-66.0); PLATELET COUNT, AUTOMATED 222 10^3/uL (150-450); RED BLOOD COUNT 4.72 10^6/uL (4.30-6.10); WHITE BLOOD COUNT 7.3 10^3/uL (4.0-10.0)
[2021-11-30 20:05] LABS: MICROCYTOSIS 2+
[2021-11-30 20:06] LABS: ANISOCYTOSIS 2+; HYPOCHROMASIA 1+
[2021-11-30 20:07] LABS: PLATELET ESTIMATE NORMAL (NORMAL)
== END ==
LOC: M SFHCCLAY 14:03
PROVIDERS: ATTEND Family Medicine
DX: D50.9 Iron deficiency anemia, unspecified (principal)

== ENCOUNTER → 2022-01-11 | Outpatient (CLI) | payer MEDICARE, OTHER | LOC: M RAD 15:12 | PROVIDERS: ATTEND Internal Medicine Pulmonary Disease | DX: J84.9 Interstitial pulmonary disease, unspecified (principal) ==

== ENCOUNTER → 2022-01-28 | Outpatient (REF) | payer MEDICARE, OTHER ==
[2022-01-28 17:03] LABS: BASO % 0.6 % (0.0-1.0); EOS # 0.2 10^3/uL (0.0-0.5); EOS % 2.9 % (0.0-3.0); HEMATOCRIT 36.9 % (42.0-52.0); HEMOGLOBIN 11.8 g/dl (13.5-17.5); LYMPH # 3.8 10^3/uL (1.5-5.0); LYMPH % 56.1 % (24.0-44.0); MEAN CORPUSCULAR HEMOGLOBIN 27.1 pg (27.0-33.0); MEAN CORPUSCULAR VOLUME 84.8 fl (80.0-96.0); MONO # 0.7 10^3/uL (0.0-0.8); MONO % 9.8 % (2.0-8.0); NEUTROPHILS # 2.1 10^3/uL (1.5-8.5); NEUTROPHILS % 30.3 % (36.0-66.0); PLATELET COUNT, AUTOMATED 203 10^3/uL (150-450); RED BLOOD COUNT 4.35 10^6/uL (4.30-6.10); WHITE BLOOD COUNT 6.8 10^3/uL (4.0-10.0)
[2022-01-28 17:58] LABS: ALBUMIN 3.6 GM/DL (3.2-5.2); ALT/SGPT 33 U/L (12-78); BILIRUBIN,TOTAL 0.5 MG/DL (0.2-1.0); BLOOD UREA NITROGEN 10 MG/DL (7-18); CALCIUM LEVEL 7.8 MG/DL (8.8-10.2); CARBON DIOXIDE LEVEL 32 MEQ/L (21-32); CHLORIDE LEVEL 104 MEQ/L (98-107); CREATININE FOR GFR 0.87 MG/DL (0.70-1.30); GLOMERULAR FILTRATION RATE > 60.0 (>42); GLUCOSE, FASTING 118 MG/DL (70-100); IRON (FE) 36 UG/DL (65-175); MAGNESIUM LEVEL 2.2 MG/DL (1.8-2.4); POTASSIUM SERUM 3.7 MEQ/L (3.5-5.1); SODIUM LEVEL 139 MEQ/L (136-145); TOTAL PROTEIN 7.6 GM/DL (6.4-8.2)
== END ==
LOC: M SFHCCLAY 10:28
PROVIDERS: ATTEND Family Medicine
DX: E83.51 Hypocalcemia (principal); K21.9 Gastro-esophageal reflux disease without esophagitis; D50.9 Iron deficiency anemia, unspecified

== ENCOUNTER 2022-02-03 09:23 | Outpatient (CLI) | payer MEDICARE, OTHER ==
[~2022-02-03] VITALS: Ht 161.3 cm; Wt 85.0 kg
[~2022-02-03 09:23] MED LIST changes: +ALBUTEROL SULFATE 2.5 MG/0.5 ML INH NEB SOLN INH PRN; +EPINEPHrine INJ 1 MG/ML 1ML AMP IM PRN; +diphenhydrAMINE 50MG/ML VIAL (J1200) IV PRN; +methylPREDNISolone 125MG 2ML VIAL IV PRN
[2022-02-03] MEDS ORDERED: NS 1,000 ML IV SCH (09:30)
[2022-02-03] MEDS ORDERED: FERRIC CARBOXYMALTOSE INJ 750 MG in NS 250 ML (>50kg) IV ONE ×3 (09:30)
[2022-02-03 09:56] VITALS: BP 133/77
[2022-02-03 11:28] VITALS: BP 114/76
== END 2022-02-03 11:30 | disposition home or self-care (01) ==
LOC: M INFU 09:23
PROVIDERS: ATTEND Family Medicine
DX: R42 Dizziness and giddiness (principal); Z88.8 Allergy status to other drugs, medicaments and biological substances
CPT/HCPCS: 96365; J1439

== ENCOUNTER → 2022-02-10 | Outpatient (CLI) | payer MEDICARE, OTHER ==
[~2022-02-10] VITALS: Ht 162.6 cm; Wt 84.5 kg
[~2022-02-10] MED LIST changes: +CLOP75TA99 PO; +FERRIC CARBOXYMALTOSE INJ 750 MG in NS 250 ML (>50kg) IV ONE; +NS 1,000 ML IV SCH; -PLAV1TAB2 PO; -diphenhydrAMINE 50MG/ML VIAL (J1200) IV PRN; +diphenhydrAMINE 50MG/ML VIAL IV PRN
[2022-02-10 09:51] VITALS: BP 135/75
[2022-02-10 11:51] VITALS: BP 126/60
== END ==
LOC: M INFU 09:30
PROVIDERS: ATTEND Family Medicine
DX: R42 Dizziness and giddiness (principal); Z88.8 Allergy status to other drugs, medicaments and biological substances
CPT/HCPCS: 96365; 96366; J1439

== ENCOUNTER → 2022-03-03 | Outpatient (REF) | payer MEDICARE, OTHER ==
[~2022-03-03] MED LIST changes: -ALBUTEROL SULFATE 2.5 MG/0.5 ML INH NEB SOLN INH PRN; -EPINEPHrine INJ 1 MG/ML 1ML AMP IM PRN; -FERRIC CARBOXYMALTOSE INJ 750 MG in NS 250 ML (>50kg) IV ONE; -NS 1,000 ML IV SCH; -diphenhydrAMINE 50MG/ML VIAL IV PRN; -methylPREDNISolone 125MG 2ML VIAL IV PRN
[2022-03-03 18:50] LABS: BASO % 0.4 % (0.0-1.0); EOS # 0.1 10^3/uL (0.0-0.5); EOS % 1.1 % (0.0-3.0); HEMATOCRIT 34.7 % (42.0-52.0); HEMOGLOBIN 10.8 g/dl (13.5-17.5); LYMPH # 2.3 10^3/uL (1.5-5.0); LYMPH % 32.5 % (24.0-44.0); MEAN CORPUSCULAR HGB CONC 31.1 g/dl (32.0-36.5); MONO # 0.7 10^3/uL (0.0-0.8); MONO % 9.5 % (2.0-8.0); NEUTROPHILS % 55.9 % (36.0-66.0); PLATELET COUNT, AUTOMATED 225 10^3/uL (150-450); RED BLOOD COUNT 3.73 10^6/uL (4.30-6.10); WHITE BLOOD COUNT 7.1 10^3/uL (4.0-10.0)
[2022-03-03 19:06] LABS: ALBUMIN 3.5 G/DL (3.2-5.2); ALT/SGPT 30 U/L (7.0-40); BLOOD UREA NITROGEN 12 MG/DL (9-23); CALCIUM LEVEL 6.3 MG/DL (8.3-10.6); CARBON DIOXIDE LEVEL 33 MMOL/L (20-31); CHLORIDE LEVEL 99 MMOL/L (98-107); CPK CREATINE PHOSPHOKINASE 197 U/L (46-171); CREATININE FOR GFR 0.84 MG/DL (0.70-1.30); GLOMERULAR FILTRATION RATE > 60.0 (>42); GLUCOSE, FASTING 106 MG/DL (74-106); SODIUM LEVEL 140 MMOL/L (136-145)
[2022-03-04 19:10] LABS: PTH INTACT 88.7 PG/ML (18.5-88.0); TOTAL 25(OH) VITAMIN D 50.8 NG/ML (20.0-100.0)
== END ==
LOC: M SFHCCLAY 10:00
PROVIDERS: ATTEND Physician Assistant
DX: R06.02 Shortness of breath (principal); R52 Pain, unspecified

== ENCOUNTER → 2022-03-03 | Outpatient (CLI) | payer MEDICARE, OTHER | LOC: M CLY 09:16 | PROVIDERS: ATTEND Physician Assistant | DX: R05.2 Subacute cough (principal) ==

== ENCOUNTER → 2022-03-04 | Outpatient (REF) | payer MEDICARE, OTHER | LOC: M SFHCCLAY 10:09 | PROVIDERS: ATTEND Physician Assistant | DX: R05.2 Subacute cough (principal) ==

== ENCOUNTER → 2022-06-14 | Outpatient (REF) | payer MEDICARE, OTHER ==
[~2022-06-14] MED LIST changes: +BACI1CAP PO; +CALC-354 PO; +CEFD300CAP PO; +DOXY100T PO; +ESOM1CAP5 PO; +FLUC10TA PO; +MAGN400T2 PO; +MUCI1TAB16 PO; +PRED10TA2 PO
[2022-06-14 17:13] LABS: BASO % 0.5 % (0.0-1.0); EOS # 0.2 10^3/uL (0.0-0.5); EOS % 2.6 % (0.0-3.0); HEMATOCRIT 36.8 % (42.0-52.0); HEMOGLOBIN 11.5 g/dl (13.5-17.5); LYMPH # 4.2 10^3/uL (1.5-5.0); LYMPH % 48.4 % (24.0-44.0); MEAN CORPUSCULAR HEMOGLOBIN 27.7 pg (27.0-33.0); MEAN CORPUSCULAR HGB CONC 31.3 g/dl (32.0-36.5); MEAN CORPUSCULAR VOLUME 88.7 fl (80.0-96.0); MONO # 0.7 10^3/uL (0.0-0.8); MONO % 7.8 % (2.0-8.0); NEUTROPHILS # 3.5 10^3/uL (1.5-8.5); NEUTROPHILS % 40.4 % (36.0-66.0); PLATELET COUNT, AUTOMATED 229 10^3/uL (150-450); RED BLOOD COUNT 4.15 10^6/uL (4.30-6.10); WHITE BLOOD COUNT 8.8 10^3/uL (4.0-10.0)
[2022-06-14 17:42] LABS: ALBUMIN 3.7 G/DL (3.2-5.2); ALKALINE PHOSPHATASE 63 U/L (46-116); ALT/SGPT 45 U/L (7.0-40); AST/SGOT 44 U/L (<34); BILIRUBIN,TOTAL 0.7 MG/DL (0.3-1.2); BLOOD UREA NITROGEN 15 MG/DL (9-23); CARBON DIOXIDE LEVEL 32 MMOL/L (20-31); CHLORIDE LEVEL 102 MMOL/L (98-107); CREATININE FOR GFR 0.82 MG/DL (0.70-1.30); GLOMERULAR FILTRATION RATE > 60.0 (>42); GLUCOSE, FASTING 107 MG/DL (74-106); IRON (FE) 33 UG/DL (65-175); MAGNESIUM LEVEL 1.9 MG/DL (1.8-2.4); POTASSIUM SERUM 4.1 MMOL/L (3.5-5.1); SODIUM LEVEL 138 MMOL/L (136-145); TOTAL PROTEIN 7.2 G/DL (5.7-8.2)
[2022-06-14 17:48] LABS: HEMOGLOBIN A1c 5.7 % (4.0-6.0)
== END ==
LOC: M SFHCCLAY 09:48
PROVIDERS: ATTEND Family Medicine
DX: D50.9 Iron deficiency anemia, unspecified (principal); E83.51 Hypocalcemia; K21.9 Gastro-esophageal reflux disease without esophagitis; Z13.1 Encounter for screening for diabetes mellitus; Z79.899 Other long term (current) drug therapy

== ENCOUNTER 2022-06-20 10:20 | Outpatient (CLI) | payer MEDICARE, OTHER ==
[2022-06-20 10:20] VITALS: BP 122/74
[~2022-06-20 10:20] MED LIST changes: +ALBUTEROL SULFATE 2.5MG/0.5ML INH NEB SOLN INH PRN; -BACI1CAP PO; -CALC-354 PO; -CEFD300CAP PO; -DOXY100T PO; +EPINEPHrine INJ 1 MG/ML 1ML AMP IM PRN; -ESOM1CAP5 PO; -FLUC10TA PO; -MAGN400T2 PO; -MUCI1TAB16 PO; -PRED10TA2 PO; +diphenhydrAMINE 50MG/ML VIAL IV PRN; +methylPREDNISolone 125MG 2ML VIAL IV PRN
[2022-06-20] MEDS ORDERED: FERRIC CARBOXYMALTOSE INJ 750 MG in NS 250 ML (>50kg) IV ONE ×3 (11:00)
[2022-06-20] MEDS ORDERED: NS 1,000 ML IV SCH (11:00)
[2022-06-20 13:00] VITALS: BP 133/90
== END 2022-06-20 13:10 ==
LOC: M INFU 10:20
PROVIDERS: ATTEND Family Medicine
DX: D50.9 Iron deficiency anemia, unspecified (principal); Z88.8 Allergy status to other drugs, medicaments and biological substances
CPT/HCPCS: 96365; 96366; J1439

== ENCOUNTER → 2022-06-24 | Outpatient (REF) | payer MEDICARE, OTHER ==
[~2022-06-24] MED LIST changes: -ALBUTEROL SULFATE 2.5MG/0.5ML INH NEB SOLN INH PRN; +CALC-354 PO; -EPINEPHrine INJ 1 MG/ML 1ML AMP IM PRN; +ESOM1CAP5 PO; +MAGN400T2 PO; -diphenhydrAMINE 50MG/ML VIAL IV PRN; -methylPREDNISolone 125MG 2ML VIAL IV PRN
[2022-06-24 17:31] LABS: POTASSIUM SERUM 4.2 MMOL/L (3.5-5.1)
== END ==
LOC: M LAB REF 16:33
PROVIDERS: ATTEND Internal Medicine Nephrology
DX: E83.51 Hypocalcemia (principal)

== ENCOUNTER 2022-06-27 10:12 | Outpatient (CLI) | payer MEDICARE, OTHER ==
[~2022-06-27] VITALS: Ht 162.6 cm; Wt 89.0 kg
[~2022-06-27 10:12] MED LIST changes: +ALBUTEROL SULFATE 2.5MG/0.5ML INH NEB SOLN INH PRN; -CALC-354 PO; +EPINEPHrine INJ 1 MG/ML 1ML AMP IM PRN; -ESOM1CAP5 PO; -MAGN400T2 PO; +diphenhydrAMINE 50MG/ML VIAL IV PRN; +methylPREDNISolone 125MG 2ML VIAL IV PRN
[2022-06-27 10:15] VITALS: BP 126/68
[2022-06-27] MEDS ORDERED: FERRIC CARBOXYMALTOSE INJ 750 MG in NS 250 ML (>50kg) IV ONE ×3 (11:00)
[2022-06-27] MEDS ORDERED: NS 1,000 ML IV SCH (11:00)
[2022-06-27 12:40] VITALS: BP 118/64
[2022-06-27] MEDS ORDERED: ESOM1CAP5 PO (19:55)
[2022-06-27] MEDS ORDERED: MAGN400T2 PO (19:55)
[2022-06-27] MEDS ORDERED: SYNT150T PO (19:55)
[2022-06-27] MEDS ORDERED: CALC-354 PO (19:55)
== END 2022-06-27 12:45 | disposition home or self-care (01) ==
LOC: M INFU 10:12
PROVIDERS: ATTEND Family Medicine
DX: D50.9 Iron deficiency anemia, unspecified (principal); Z88.8 Allergy status to other drugs, medicaments and biological substances

== ENCOUNTER 2022-06-27 13:56 | Inpatient (IN) | payer MEDICARE, OTHER ==
[~2022-06-27] VITALS: Ht 162.6 cm; Wt 91.0 kg
[~2022-06-27 13:56] MED LIST changes: -ALBUTEROL SULFATE 2.5MG/0.5ML INH NEB SOLN INH PRN; -EPINEPHrine INJ 1 MG/ML 1ML AMP IM PRN; -diphenhydrAMINE 50MG/ML VIAL IV PRN; -methylPREDNISolone 125MG 2ML VIAL IV PRN
[2022-06-27 14:59] LABS: BASO % 0.4 % (0.0-1.0); EOS # 0.2 10^3/uL (0.0-0.5); EOS % 3.4 % (0.0-3.0); HEMATOCRIT 35.7 % (42.0-52.0); HEMOGLOBIN 11.1 g/dl (13.5-17.5); LYMPH # 3.3 10^3/uL (1.5-5.0); LYMPH % 46.1 % (24.0-44.0); MEAN CORPUSCULAR HEMOGLOBIN 27.8 pg (27.0-33.0); MEAN CORPUSCULAR HGB CONC 31.1 g/dl (32.0-36.5); MEAN CORPUSCULAR VOLUME 89.3 fl (80.0-96.0); MONO # 0.8 10^3/uL (0.0-0.8); MONO % 11.1 % (2.0-8.0); NEUTROPHILS # 2.7 10^3/uL (1.5-8.5); NEUTROPHILS % 38.4 % (36.0-66.0); PLATELET COUNT, AUTOMATED 217 10^3/uL (150-450); WHITE BLOOD COUNT 7.1 10^3/uL (4.0-10.0)
[2022-06-27 15:30] LABS: RSV AMPLIFICATION NEGATIVE (NEGATIVE)
[2022-06-27] MEDS ORDERED: CARVedilol 12.5 MG TAB PO ONE (15:35)
[2022-06-27 16:18] LABS: ALBUMIN 3.6 G/DL (3.2-5.2); ALKALINE PHOSPHATASE 63 U/L (46-116); ALT/SGPT 41 U/L (7.0-40); AST/SGOT 39 U/L (<34); BILIRUBIN,DIRECT 0.2 MG/DL (<0.4); BILIRUBIN,TOTAL 0.6 MG/DL (0.3-1.2); BLOOD UREA NITROGEN 11 MG/DL (9-23); CALCIUM LEVEL 7.6 MG/DL (8.3-10.6); CARBON DIOXIDE LEVEL 27 MMOL/L (20-31); CHLORIDE LEVEL 108 MMOL/L (98-107); GLUCOSE, FASTING 99 MG/DL (74-106); POTASSIUM SERUM 4.4 MMOL/L (3.5-5.1); SODIUM LEVEL 141 MMOL/L (136-145); TOTAL PROTEIN 6.8 G/DL (5.7-8.2)
[2022-06-27 16:29] LABS: THYROID STIMULATING HORMONE 1.806 uIU/ML (0.55-4.78)
[2022-06-27 16:33] LABS: CREATININE FOR GFR 0.71 MG/DL (0.70-1.30); GLOMERULAR FILTRATION RATE > 60.0 (>42)
[2022-06-27] MEDS ORDERED: ISOVUE-370 76% 100ML VIAL As Ordered ONE (17:01)
[2022-06-27] MEDS ORDERED: cefTRIAXone SOD 1 GM in D5W MINI-BAG PLUS 50 ML IV ONE (18:40)
[2022-06-27] MEDS ORDERED: AZITHROMYCIN 250MG TABLET PO ONE (18:40)
[2022-06-27] MEDS ORDERED: ESOM1CAP5 PO (19:55)
[2022-06-27] MEDS ORDERED: SYNT150T PO (19:55)
[2022-06-27] MEDS ORDERED: CALC-354 PO (19:55)
[2022-06-27] MEDS ORDERED: MAGN400T2 PO (19:55)
[2022-06-27] MEDS ORDERED: HOME MED LIST COMPLETE! XX SCH (20:00)
[2022-06-27] MEDS ORDERED: ACETAMINOPHEN TAB 650MG DOSE (2X325MG) PO PRN (20:15)
[2022-06-27] MEDS: SYMBICORT 80/4.5MCG INHALER 6GM INH SCH (20:29)
[2022-06-27 22:50] VITALS: BP 135/84
[2022-06-27] MEDS: DOXYCYCLINE HYCLATE 100MG TABLET PO SCH (23:32)
[2022-06-27] MEDS: CARVedilol 12.5 MG TAB PO SCH (23:32)
[2022-06-27] MEDS: DABIGATRAN ETEXILATE 75 MG CAP (PRADAXA) PO SCH (23:33)
[2022-06-27] MEDS: METAMUCIL (PSYLLIUM) PACKET PO SCH (23:33)
[2022-06-27] MEDS: MAGNESIUM OXIDE 400MG TAB (MAG-OX) PO SCH (23:33)
[2022-06-28] MEDS: LEVOTHYROXINE 150MCG TABLET (0.15MG) PO SCH (05:14)
[2022-06-28 05:16] VITALS: BP 125/69
[2022-06-28 06:07] LABS: HEMATOCRIT 34.3 % (42.0-52.0); HEMOGLOBIN 10.8 g/dl (13.5-17.5); MEAN CORPUSCULAR HEMOGLOBIN 27.9 pg (27.0-33.0); MEAN CORPUSCULAR HGB CONC 31.5 g/dl (32.0-36.5); MEAN CORPUSCULAR VOLUME 88.6 fl (80.0-96.0); PLATELET COUNT, AUTOMATED 208 10^3/uL (150-450); RED BLOOD COUNT 3.87 10^6/uL (4.30-6.10)
[2022-06-28 07:07] LABS: BLOOD UREA NITROGEN 9 MG/DL (9-23); CALCIUM LEVEL 7.3 MG/DL (8.3-10.6); CARBON DIOXIDE LEVEL 27 MMOL/L (20-31); CHLORIDE LEVEL 105 MMOL/L (98-107); CREATININE FOR GFR 0.69 MG/DL (0.70-1.30); GLOMERULAR FILTRATION RATE > 60.0 (>42); GLUCOSE, FASTING 98 MG/DL (74-106); MAGNESIUM LEVEL 1.9 MG/DL (1.8-2.4); SODIUM LEVEL 140 MMOL/L (136-145)
[2022-06-28] MEDS: SYMBICORT 80/4.5MCG INHALER 6GM INH SCH ×2 (07:49→20:31)
[2022-06-28] MEDS: MAGNESIUM OXIDE 400MG TAB (MAG-OX) PO SCH ×2 (08:20→20:39)
[2022-06-28] MEDS: FUROSEMIDE 40 MG TAB PO SCH ×2 (08:20→16:28)
[2022-06-28] MEDS: DABIGATRAN ETEXILATE 75 MG CAP (PRADAXA) PO SCH ×2 (08:20→21:00)
[2022-06-28] MEDS: DOXYCYCLINE HYCLATE 100MG TABLET PO SCH ×2 (08:20→20:40)
[2022-06-28] MEDS: MULTIVITAMINS/MINERALS THERAP 1 TAB PO SCH (08:20)
[2022-06-28] MEDS: CARVedilol 12.5 MG TAB PO SCH ×3 (08:22→20:39)
[2022-06-28] MEDS: DIGOXIN 0.125 MG TAB PO SCH (08:23)
[2022-06-28 14:00] VITALS: BP 120/60
[2022-06-28] MEDS: cefTRIAXone SOD 1 GM in D5W MINI-BAG PLUS 50 ML IV SCH (20:37)
[2022-06-28] MEDS: METAMUCIL (PSYLLIUM) PACKET PO SCH (20:41)
[2022-06-29 05:10] VITALS: BP 124/63
[2022-06-29] MEDS: LEVOTHYROXINE 150MCG TABLET (0.15MG) PO SCH (05:24)
[2022-06-29] MEDS: SYMBICORT 80/4.5MCG INHALER 6GM INH SCH ×2 (07:53→20:00)
[2022-06-29] MEDS: DABIGATRAN ETEXILATE 75 MG CAP (PRADAXA) PO SCH (08:16)
[2022-06-29 08:35] VITALS: BP 122/74
[2022-06-29] MEDS: DIGOXIN 0.125 MG TAB PO SCH (08:49)
[2022-06-29] MEDS: DOXYCYCLINE HYCLATE 100MG TABLET PO SCH ×2 (08:49→20:45)
[2022-06-29] MEDS: MULTIVITAMINS/MINERALS THERAP 1 TAB PO SCH (08:50)
[2022-06-29] MEDS: FUROSEMIDE 40 MG TAB PO SCH (08:50)
[2022-06-29] MEDS: MAGNESIUM OXIDE 400MG TAB (MAG-OX) PO SCH ×2 (08:50→20:45)
[2022-06-29] MEDS: CARVedilol 12.5 MG TAB PO SCH ×3 (08:52→20:47)
[2022-06-29] MEDS: methylPREDNISolone 125MG 2ML VIAL IV SCH ×2 (11:43→16:21)
[2022-06-29 14:00] VITALS: BP 123/72
[2022-06-29] MEDS: FUROSEMIDE 20MG/2ML VIAL IV SCH (16:20)
[2022-06-29 20:00] VITALS: BP 135/86
[2022-06-29] MEDS: METAMUCIL (PSYLLIUM) PACKET PO SCH (20:47)
[2022-06-29] MEDS: cefTRIAXone SOD 1 GM in D5W MINI-BAG PLUS 50 ML IV SCH (20:47)
[2022-06-30 06:33] LABS: BLOOD UREA NITROGEN 13 MG/DL (9-23); CALCIUM LEVEL 7.7 MG/DL (8.3-10.6); CARBON DIOXIDE LEVEL 27 MMOL/L (20-31); CHLORIDE LEVEL 104 MMOL/L (98-107); CREATININE FOR GFR 0.63 MG/DL (0.70-1.30); GLOMERULAR FILTRATION RATE > 60.0 (>42); GLUCOSE, FASTING 148 MG/DL (74-106); POTASSIUM SERUM 4.1 MMOL/L (3.5-5.1); SODIUM LEVEL 139 MMOL/L (136-145)
[2022-06-30 06:36] LABS: BASO % 0.1 % (0.0-1.0); HEMATOCRIT 34.6 % (42.0-52.0); HEMOGLOBIN 11.1 g/dl (13.5-17.5); LYMPH # 2.3 10^3/uL (1.5-5.0); LYMPH % 25.6 % (24.0-44.0); MEAN CORPUSCULAR HGB CONC 32.1 g/dl (32.0-36.5); MEAN CORPUSCULAR VOLUME 87.4 fl (80.0-96.0); MONO # 0.2 10^3/uL (0.0-0.8); MONO % 2.5 % (2.0-8.0); NEUTROPHILS # 6.4 10^3/uL (1.5-8.5); NEUTROPHILS % 71.5 % (36.0-66.0); PLATELET COUNT, AUTOMATED 210 10^3/uL (150-450); RED BLOOD COUNT 3.96 10^6/uL (4.30-6.10); WHITE BLOOD COUNT 8.9 10^3/uL (4.0-10.0)
[2022-06-30] MEDS: LEVOTHYROXINE 150MCG TABLET (0.15MG) PO SCH (06:36)
[2022-06-30] MEDS: SYMBICORT 80/4.5MCG INHALER 6GM INH SCH ×2 (07:34→21:24)
[2022-06-30 07:45] VITALS: BP 130/70
[2022-06-30] MEDS ORDERED: ADALIMUMAB 80 MG SC ONE (08:55)
[2022-06-30] MEDS: FUROSEMIDE 20MG/2ML VIAL IV SCH ×2 (09:00→16:06)
[2022-06-30] MEDS: MULTIVITAMINS/MINERALS THERAP 1 TAB PO SCH (09:27)
[2022-06-30] MEDS: MAGNESIUM OXIDE 400MG TAB (MAG-OX) PO SCH ×2 (09:28→21:24)
[2022-06-30] MEDS: DOXYCYCLINE HYCLATE 100MG TABLET PO SCH ×2 (09:28→21:21)
[2022-06-30] MEDS: DIGOXIN 0.125 MG TAB PO SCH (09:29)
[2022-06-30] MEDS: CARVedilol 12.5 MG TAB PO SCH ×3 (09:29→21:00)
[2022-06-30] MEDS ORDERED: methylPREDNISolone 40MG 1ML VIAL IV SCH (10:00)
[2022-06-30] MEDS: guaiFENesin ER 600 MG TAB PO SCH ×2 (11:54→21:23)
[2022-06-30 14:00] VITALS: BP 114/82
[2022-06-30 16:07] VITALS: BP 118/72
[2022-06-30 16:08] LABS: BODY FLUID CULTURE Not indicated. (.); LEGIONELLA ANTIGEN URINE Negative (Negative); ORGANISM ID Not indicated. (.); SPECIMEN SOURCE Urine (.); URINE STREP PNEUMONIAE ANTIGEN Negative (Negative)
[2022-06-30] MEDS: methylPREDNISolone 40MG 1ML VIAL IV SCH (17:52)
[2022-06-30] MEDS: METAMUCIL (PSYLLIUM) PACKET PO SCH (21:00)
[2022-06-30] MEDS: cefTRIAXone SOD 1 GM in D5W MINI-BAG PLUS 50 ML IV SCH (21:24)
[2022-06-30 22:00] VITALS: BP 124/67
[2022-07-01] MEDS: methylPREDNISolone 40MG 1ML VIAL IV SCH ×2 (00:30→05:23)
[2022-07-01] MEDS: LEVOTHYROXINE 150MCG TABLET (0.15MG) PO SCH (05:23)
[2022-07-01 05:54] LABS: BASO % 0.1 % (0.0-1.0); HEMATOCRIT 34.4 % (42.0-52.0); LYMPH # 2.1 10^3/uL (1.5-5.0); LYMPH % 17.8 % (24.0-44.0); MEAN CORPUSCULAR HEMOGLOBIN 28.2 pg (27.0-33.0); MEAN CORPUSCULAR VOLUME 88.2 fl (80.0-96.0); MONO # 0.3 10^3/uL (0.0-0.8); MONO % 2.6 % (2.0-8.0); NEUTROPHILS # 9.1 10^3/uL (1.5-8.5); NEUTROPHILS % 78.8 % (36.0-66.0); PLATELET COUNT, AUTOMATED 211 10^3/uL (150-450); WHITE BLOOD COUNT 11.5 10^3/uL (4.0-10.0)
[2022-07-01 06:00] VITALS: BP 124/66
[2022-07-01 06:19] LABS: BLOOD UREA NITROGEN 13 MG/DL (9-23); CALCIUM LEVEL 7.7 MG/DL (8.3-10.6); CARBON DIOXIDE LEVEL 28 MMOL/L (20-31); CHLORIDE LEVEL 107 MMOL/L (98-107); CREATININE FOR GFR 0.54 MG/DL (0.70-1.30); GLOMERULAR FILTRATION RATE > 60.0 (>42); GLUCOSE, FASTING 140 MG/DL (74-106); SODIUM LEVEL 141 MMOL/L (136-145)
[2022-07-01] MEDS: SYMBICORT 80/4.5MCG INHALER 6GM INH SCH (07:40)
[2022-07-01] MEDS: DOXYCYCLINE HYCLATE 100MG TABLET PO SCH (08:03)
[2022-07-01] MEDS: guaiFENesin ER 600 MG TAB PO SCH (08:03)
[2022-07-01] MEDS: MULTIVITAMINS/MINERALS THERAP 1 TAB PO SCH (08:03)
[2022-07-01] MEDS: MAGNESIUM OXIDE 400MG TAB (MAG-OX) PO SCH (08:03)
[2022-07-01] MEDS: DIGOXIN 0.125 MG TAB PO SCH (08:04)
[2022-07-01 08:05] VITALS: BP 124/66
[2022-07-01] MEDS: CARVedilol 12.5 MG TAB PO SCH (08:05)
[2022-07-01] MEDS: FUROSEMIDE 20MG/2ML VIAL IV SCH (08:05)
[2022-07-01] MEDS ORDERED: CEFD300CAP PO (08:53)
[2022-07-01] MEDS ORDERED: BACI1CAP PO (08:53)
[2022-07-01] MEDS ORDERED: DOXY100T PO (08:53)
[2022-07-01] MEDS ORDERED: PRED10TA2 PO (08:53)
[2022-07-01] MEDS ORDERED: FLUC10TA PO (13:13)
[2022-07-01] MEDS ORDERED: MUCI1TAB16 PO (13:13)
== END 2022-07-01 11:55 | disposition home health service (06) | DRG 177 ==
LOC: M ED 13:56 → M ED INP 20:14 → M MSPAV 22:47
PROVIDERS: ADMIT Family Medicine; ATTEND General Practice
DX: J15.6 Pneumonia due to other Gram-negative bacteria (principal); J96.01 Acute respiratory failure with hypoxia; K50.90 Crohn's disease, unspecified, without complications; R04.2 Hemoptysis; I48.20 Chronic atrial fibrillation, unspecified; J84.10 Pulmonary fibrosis, unspecified; K21.9 Gastro-esophageal reflux disease without esophagitis; I11.0 Hypertensive heart disease with heart failure; I50.9 Heart failure, unspecified; I25.10 Atherosclerotic heart disease of native coronary artery without angina pectoris; E66.9 Obesity, unspecified; D50.9 Iron deficiency anemia, unspecified; G47.33 Obstructive sleep apnea (adult) (pediatric); K57.90 Diverticulosis of intestine, part unspecified, without perforation or abscess without bleeding; E89.0 Postprocedural hypothyroidism; Z95.1 Presence of aortocoronary bypass graft; Z90.49 Acquired absence of other specified parts of digestive tract; Z87.11 Personal history of peptic ulcer disease; Z79.890 Hormone replacement therapy; Z79.01 Long term (current) use of anticoagulants; Z79.899 Other long term (current) drug therapy; Z88.6 Allergy status to analgesic agent; Z88.8 Allergy status to other drugs, medicaments and biological substances; Z68.34 Body mass index [BMI] 34.0-34.9, adult; Z86.14 Personal history of Methicillin resistant Staphylococcus aureus infection; Z85.850 Personal history of malignant neoplasm of thyroid

== ENCOUNTER → 2022-06-27 | Outpatient (CLI) | payer MEDICARE, OTHER | LOC: M RAD 12:47 | PROVIDERS: ATTEND Internal Medicine Pulmonary Disease | DX: J84.9 Interstitial pulmonary disease, unspecified (principal) ==

== ENCOUNTER → 2022-07-03 | Outpatient (CLI) | payer MEDICARE, OTHER ==
[~2022-07-03] MED LIST changes: +BACI1CAP PO; +CALC-354 PO; +CEFD300CAP PO; +DOXY100T PO; +ESOM1CAP5 PO; +FLUC10TA PO; +MAGN400T2 PO; +MUCI1TAB16 PO; +PRED10TA2 PO
[2022-07-03 13:10] LABS: BLOOD UREA NITROGEN 17 MG/DL (9-23); CALCIUM LEVEL 6.7 MG/DL (8.3-10.6); CARBON DIOXIDE LEVEL 29 MMOL/L (20-31); CHLORIDE LEVEL 104 MMOL/L (98-107); CREATININE FOR GFR 0.71 MG/DL (0.70-1.30); GLOMERULAR FILTRATION RATE > 60.0 (>42); GLUCOSE, FASTING 145 MG/DL (74-106); POTASSIUM SERUM 3.9 MMOL/L (3.5-5.1); SODIUM LEVEL 141 MMOL/L (136-145)
== END ==
LOC: M LAB 12:18
PROVIDERS: ATTEND General Practice
DX: J18.9 Pneumonia, unspecified organism (principal)

== ENCOUNTER → 2022-07-04 | Outpatient (CLI) | payer MEDICARE, OTHER ==
[~2022-07-04] MED LIST changes: +ISOVUE-370 76% 100ML VIAL As Ordered ONE
== END ==
LOC: M RAD 12:29
PROVIDERS: ATTEND General Practice
DX: J15.6 Pneumonia due to other Gram-negative bacteria (principal); J84.10 Pulmonary fibrosis, unspecified
CPT/HCPCS: 71260; Q9967

== ENCOUNTER → 2022-07-10 | Outpatient (CLI) | payer MEDICARE, OTHER ==
[~2022-07-10] MED LIST changes: -ISOVUE-370 76% 100ML VIAL As Ordered ONE
== END ==
LOC: M LAB 14:45
DX: K50.10 Crohn's disease of large intestine without complications (principal)

== ENCOUNTER → 2022-08-23 | Outpatient (REF) | payer MEDICARE, OTHER ==
[2022-08-23 17:47] LABS: BASO # 0.1 10^3/uL (0.0-0.2); BASO % 0.9 % (0.0-1.0); EOS # 0.3 10^3/uL (0.0-0.5); EOS % 3.4 % (0.0-3.0); HEMATOCRIT 41.8 % (42.0-52.0); LYMPH # 4.2 10^3/uL (1.5-5.0); LYMPH % 51.6 % (24.0-44.0); MEAN CORPUSCULAR HGB CONC 33.5 g/dl (32.0-36.5); MEAN CORPUSCULAR VOLUME 89.5 fl (80.0-96.0); MONO # 0.9 10^3/uL (0.0-0.8); MONO % 10.7 % (2.0-8.0); NEUTROPHILS # 2.7 10^3/uL (1.5-8.5); NEUTROPHILS % 33.3 % (36.0-66.0); PLATELET COUNT, AUTOMATED 202 10^3/uL (150-450); RED BLOOD COUNT 4.67 10^6/uL (4.30-6.10); WHITE BLOOD COUNT 8.2 10^3/uL (4.0-10.0)
[2022-08-23 18:11] LABS: ALKALINE PHOSPHATASE 73 U/L (46-116); ALT/SGPT 54 U/L (7.0-40); AST/SGOT 46 U/L (<34); BILIRUBIN,TOTAL 0.9 MG/DL (0.3-1.2); BLOOD UREA NITROGEN 12 MG/DL (9-23); CALCIUM LEVEL 8.2 MG/DL (8.3-10.6); CARBON DIOXIDE LEVEL 31 MMOL/L (20-31); CHLORIDE LEVEL 102 MMOL/L (98-107); CREATININE FOR GFR 0.82 MG/DL (0.70-1.30); GLOMERULAR FILTRATION RATE > 60.0 (>42); GLUCOSE, FASTING 82 MG/DL (74-106); IRON (FE) 96 UG/DL (65-175); SODIUM LEVEL 142 MMOL/L (136-145); TOTAL PROTEIN 7.1 G/DL (5.7-8.2)
[2022-08-23 18:14] LABS: FREE T4 1.32 NG/DL (0.89-1.76); THYROID STIMULATING HORMONE 1.756 uIU/ML (0.55-4.78)
== END ==
LOC: M SFHCCLAY 13:55
PROVIDERS: ATTEND Family Medicine
DX: D50.9 Iron deficiency anemia, unspecified (principal); E83.51 Hypocalcemia; E89.0 Postprocedural hypothyroidism

== ENCOUNTER → 2022-12-01 | Outpatient (REF) | payer MEDICARE, OTHER ==
[~2022-12-01] MED LIST changes: -K-TA10TA PO; +POTA-164 PO
[2022-12-01 11:31] LABS: HEMATOCRIT 39.1 % (42.0-52.0); HEMOGLOBIN 12.1 g/dl (13.5-17.5); MEAN CORPUSCULAR HEMOGLOBIN 26.4 pg (27.0-33.0); MEAN CORPUSCULAR HGB CONC 30.9 g/dl (32.0-36.5); MEAN CORPUSCULAR VOLUME 85.4 fl (80.0-96.0); PLATELET COUNT, AUTOMATED 222 10^3/uL (150-450); RED BLOOD COUNT 4.58 10^6/uL (4.30-6.10); WHITE BLOOD COUNT 7.6 10^3/uL (4.0-10.0)
[2022-12-01 11:53] LABS: IRON (FE) 38 UG/DL (65-175)
[2022-12-01 11:55] LABS: FREE T4 1.27 NG/DL (0.89-1.76)
[2022-12-01 11:56] LABS: ALBUMIN 3.8 G/DL (3.2-5.2); ALKALINE PHOSPHATASE 70 U/L (46-116); ALT/SGPT 45 U/L (7.0-40); AST/SGOT 40 U/L (<34); BILIRUBIN,TOTAL 0.8 MG/DL (0.3-1.2); BLOOD UREA NITROGEN 10 MG/DL (9-23); CALCIUM LEVEL 8.3 MG/DL (8.3-10.6); CARBON DIOXIDE LEVEL 30 MMOL/L (20-31); CHLORIDE LEVEL 103 MMOL/L (98-107); CHOLESTEROL LEVEL 145 MG/DL (<200); CHOLESTEROL RISK RATIO 3.81 (<5); CREATININE FOR GFR 0.82 MG/DL (0.70-1.30); GLOMERULAR FILTRATION RATE > 60.0 (>42); GLUCOSE, FASTING 119 MG/DL (74-106); LDL CHOLESTEROL 65.6 MG/DL (<100); SODIUM LEVEL 143 MMOL/L (136-145); TOTAL PROTEIN 7.3 G/DL (5.7-8.2); TRIGLYCERIDES LEVEL 207 MG/DL (<150)
[2022-12-01 12:02] LABS: HEMOGLOBIN A1c 5.8 % (4.0-6.0)
== END ==
LOC: M SFHCCLAY 07:37
PROVIDERS: ATTEND Family Medicine
DX: D50.9 Iron deficiency anemia, unspecified (principal); E89.0 Postprocedural hypothyroidism; E83.51 Hypocalcemia; K21.9 Gastro-esophageal reflux disease without esophagitis; I11.9 Hypertensive heart disease without heart failure; R73.01 Impaired fasting glucose; Z12.5 Encounter for screening for malignant neoplasm of prostate

== ENCOUNTER 2022-12-15 12:55 | Outpatient (CLI) | payer MEDICARE, OTHER ==
[~2022-12-15] VITALS: Ht 162.6 cm; Wt 84.5 kg
[~2022-12-15 12:55] MED LIST changes: +ALBUTEROL SULFATE 2.5MG/0.5ML INH NEB SOLN INH PRN; +EPINEPHrine INJ 1 MG/ML 1ML AMP IM PRN; +diphenhydrAMINE 50MG/ML VIAL IV PRN; +methylPREDNISolone 125MG 2ML VIAL IV PRN
[2022-12-15] MEDS ORDERED: FERRIC CARBOXYMALTOSE INJ 750 MG in NS 250 ML (>50kg) IV ONE ×3 (13:05)
[2022-12-15] MEDS ORDERED: NS 1,000 ML IV SCH (13:05)
[2022-12-15 13:10] VITALS: BP 120/74; O2SAT 98
[2022-12-15 15:55] VITALS: BP 134/87; O2SAT 98
== END 2022-12-15 16:00 ==
LOC: M INFU 12:55
PROVIDERS: ATTEND Family Medicine
DX: D50.9 Iron deficiency anemia, unspecified (principal); Z88.8 Allergy status to other drugs, medicaments and biological substances
CPT/HCPCS: 96365; 96366; J1439

== ENCOUNTER → 2023-03-28 | Outpatient (CLI) | payer MEDICARE, OTHER ==
[~2023-03-28] MED LIST changes: -ALBUTEROL SULFATE 2.5MG/0.5ML INH NEB SOLN INH PRN; -EPINEPHrine INJ 1 MG/ML 1ML AMP IM PRN; -diphenhydrAMINE 50MG/ML VIAL IV PRN; -methylPREDNISolone 125MG 2ML VIAL IV PRN
== END ==
LOC: M CLY 10:19
PROVIDERS: ATTEND Family Medicine
DX: M54.2 Cervicalgia (principal)

== ENCOUNTER 2023-04-04 09:01 | Outpatient (CLI) | payer MEDICARE, OTHER ==
[~2023-04-04] VITALS: Ht 162.6 cm; Wt 89.0 kg
[~2023-04-04 09:01] MED LIST changes: +ALBUTEROL SULFATE 2.5MG/0.5ML INH NEB SOLN INH PRN; +EPINEPHrine INJ 1 MG/ML 1ML AMP IM PRN; +diphenhydrAMINE 50MG/ML VIAL IV PRN; +methylPREDNISolone 125MG 2ML VIAL IV PRN
[2023-04-04 09:30] VITALS: BP 133/73; O2SAT 98
[2023-04-04] MEDS ORDERED: FERRIC CARBOXYMALTOSE INJ 750 MG in NS 250 ML (>50kg) IV ONE ×3 (09:35)
[2023-04-04] MEDS ORDERED: NS 1,000 ML IV SCH (09:35)
[2023-04-04 11:50] VITALS: BP 144/73; O2SAT 97
== END 2023-04-04 11:59 | disposition home or self-care (01) ==
LOC: M INFU 09:01
PROVIDERS: ATTEND Family Medicine
DX: D50.9 Iron deficiency anemia, unspecified (principal); Z88.8 Allergy status to other drugs, medicaments and biological substances
CPT/HCPCS: 96365; 96366; J1439

== ENCOUNTER 2023-04-14 11:50 | Outpatient (CLI) | payer MEDICARE, OTHER ==
[~2023-04-14] VITALS: Ht 160 cm; Wt 89.0 kg
[2023-04-14 12:00] VITALS: BP 127/74; O2SAT 95
[2023-04-14] MEDS ORDERED: FERRIC CARBOXYMALTOSE INJ 750 MG in NS 250 ML (>50kg) IV ONE ×3 (12:30)
[2023-04-14] MEDS ORDERED: NS 1,000 ML IV SCH (12:30)
[2023-04-14 13:30] VITALS: BP 115/72; O2SAT 97
[2023-04-14 15:21] VITALS: BP 134/81; O2SAT 96
== END 2023-04-14 15:20 | disposition home or self-care (01) ==
LOC: M INFU 11:50
PROVIDERS: ATTEND Family Medicine
DX: D50.9 Iron deficiency anemia, unspecified (principal); Z88.6 Allergy status to analgesic agent; Z88.8 Allergy status to other drugs, medicaments and biological substances
CPT/HCPCS: 96365; 96366; J1439

== ENCOUNTER → 2023-04-25 | Outpatient (REF) | payer MEDICARE, OTHER ==
[~2023-04-25] MED LIST changes: -ALBUTEROL SULFATE 2.5MG/0.5ML INH NEB SOLN INH PRN; -EPINEPHrine INJ 1 MG/ML 1ML AMP IM PRN; -diphenhydrAMINE 50MG/ML VIAL IV PRN; -methylPREDNISolone 125MG 2ML VIAL IV PRN
[2023-04-25 17:36] LABS: HEMATOCRIT 35.6 % (42.0-52.0); HEMOGLOBIN 11.8 g/dl (13.5-17.5); MEAN CORPUSCULAR HEMOGLOBIN 29.4 pg (27.0-33.0); MEAN CORPUSCULAR HGB CONC 33.1 g/dl (32.0-36.5); MEAN CORPUSCULAR VOLUME 88.6 fl (80.0-96.0); PLATELET COUNT, AUTOMATED 227 10^3/uL (150-450); RED BLOOD COUNT 4.02 10^6/uL (4.30-6.10); WHITE BLOOD COUNT 6.7 10^3/uL (4.0-10.0)
== END ==
LOC: M SFHCCLAY 14:20
PROVIDERS: ATTEND Family Medicine
DX: D50.9 Iron deficiency anemia, unspecified (principal)

== ENCOUNTER → 2023-04-25 | Outpatient (CLI) | payer MEDICARE, OTHER | LOC: M CLY 15:05 | PROVIDERS: ATTEND Family Medicine | DX: I51.7 Cardiomegaly (principal); J98.4 Other disorders of lung ==

== ENCOUNTER → 2023-05-30 | Outpatient (REF) | payer MEDICARE, OTHER ==
[2023-05-30 18:17] LABS: HEMATOCRIT 40.6 % (42.0-52.0); HEMOGLOBIN 13.2 g/dl (13.5-17.5); MEAN CORPUSCULAR HEMOGLOBIN 28.6 pg (27.0-33.0); MEAN CORPUSCULAR HGB CONC 32.5 g/dl (32.0-36.5); MEAN CORPUSCULAR VOLUME 88.1 fl (80.0-96.0); PLATELET COUNT, AUTOMATED 235 10^3/uL (150-450); RED BLOOD COUNT 4.61 10^6/uL (4.30-6.10); WHITE BLOOD COUNT 8.3 10^3/uL (4.0-10.0)
[2023-05-30 18:38] LABS: THYROID STIMULATING HORMONE 0.398 uIU/ML (0.55-4.78)
[2023-05-30 18:39] LABS: FREE T4 1.38 NG/DL (0.89-1.76)
== END ==
LOC: M SFHCCLAY 11:02
PROVIDERS: ATTEND Physician Assistant
DX: E03.9 Hypothyroidism, unspecified (principal); D50.9 Iron deficiency anemia, unspecified

== ENCOUNTER → 2023-07-04 | Outpatient (REF) | payer MEDICARE, OTHER ==
[2023-07-04 18:54] LABS: HEMATOCRIT 33.7 % (42.0-52.0); HEMOGLOBIN 11.1 g/dl (13.5-17.5); MEAN CORPUSCULAR HEMOGLOBIN 27.6 pg (27.0-33.0); MEAN CORPUSCULAR HGB CONC 32.9 g/dl (32.0-36.5); MEAN CORPUSCULAR VOLUME 83.8 fl (80.0-96.0); PLATELET COUNT, AUTOMATED 220 10^3/uL (150-450); RED BLOOD COUNT 4.02 10^6/uL (4.30-6.10); WHITE BLOOD COUNT 8.8 10^3/uL (4.0-10.0)
[2023-07-04 19:34] LABS: ALBUMIN 3.8 G/DL (3.2-5.2); ALKALINE PHOSPHATASE 73 U/L (46-116); ALT/SGPT 30 U/L (7.0-40); AST/SGOT 28 U/L (<34); BILIRUBIN,TOTAL 0.5 MG/DL (0.3-1.2); BLOOD UREA NITROGEN 15 MG/DL (9-23); CALCIUM LEVEL 8.4 MG/DL (8.3-10.6); CARBON DIOXIDE LEVEL 34 MMOL/L (20-31); CHLORIDE LEVEL 104 MMOL/L (98-107); CREATININE FOR GFR 0.77 MG/DL (0.70-1.30); GLOMERULAR FILTRATION RATE > 60.0 (>42); GLUCOSE, FASTING 87 MG/DL (74-106); IRON (FE) 36 UG/DL (65-175); SODIUM LEVEL 142 MMOL/L (136-145); THYROID STIMULATING HORMONE 0.145 uIU/ML (0.55-4.78); TOTAL PROTEIN 7.2 G/DL (5.7-8.2)
== END ==
LOC: M SFHCCLAY 13:06
PROVIDERS: ATTEND Family Medicine
DX: E03.9 Hypothyroidism, unspecified (principal); D50.9 Iron deficiency anemia, unspecified

== ENCOUNTER → 2023-07-11 | Outpatient (REF) | payer MEDICARE, OTHER ==
[2023-07-11 19:12] LABS: PERCENT SATURATION 4.3 % (19.7-50.0)
== END ==
LOC: M LAB REF 17:33
PROVIDERS: ATTEND Internal Medicine Nephrology
DX: D50.9 Iron deficiency anemia, unspecified (principal)

== ENCOUNTER → 2023-08-01 | Outpatient (REF) | payer MEDICARE, OTHER ==
[2023-08-01 12:37] LABS: HEMATOCRIT 36.4 % (42.0-52.0); HEMOGLOBIN 11.6 g/dl (13.5-17.5); MEAN CORPUSCULAR HGB CONC 31.9 g/dl (32.0-36.5); MEAN CORPUSCULAR VOLUME 87.9 fl (80.0-96.0); PLATELET COUNT, AUTOMATED 261 10^3/uL (150-450); RED BLOOD COUNT 4.14 10^6/uL (4.30-6.10); WHITE BLOOD COUNT 6.7 10^3/uL (4.0-10.0)
[2023-08-01 13:06] LABS: ALBUMIN 3.7 G/DL (3.2-5.2); ALKALINE PHOSPHATASE 76 U/L (46-116); ALT/SGPT 43 U/L (7.0-40); AST/SGOT 48 U/L (<34); BILIRUBIN,TOTAL 0.7 MG/DL (0.3-1.2); BLOOD UREA NITROGEN 10 MG/DL (9-23); CALCIUM LEVEL 7.3 MG/DL (8.3-10.6); CARBON DIOXIDE LEVEL 34 MMOL/L (20-31); CHLORIDE LEVEL 104 MMOL/L (98-107); GLOMERULAR FILTRATION RATE > 60.0 (>42); GLUCOSE, FASTING 98 MG/DL (74-106); IRON (FE) 36 UG/DL (65-175); SODIUM LEVEL 142 MMOL/L (136-145); TOTAL PROTEIN 7.3 G/DL (5.7-8.2)
[2023-08-01 13:07] LABS: FREE T4 1.57 NG/DL (0.89-1.76); TOTAL T3 125.8 NG/DL (60.0-181.0)
== END ==
LOC: M SFHCCLAY 08:53
PROVIDERS: ATTEND Family Medicine
DX: E89.0 Postprocedural hypothyroidism (principal); D50.9 Iron deficiency anemia, unspecified; E83.51 Hypocalcemia

== ENCOUNTER → 2023-08-10 | Outpatient (CLI) | payer MEDICARE, OTHER | LOC: M CLY 11:34 | PROVIDERS: ATTEND Physician Assistant | DX: B34.9 Viral infection, unspecified (principal) ==

== ENCOUNTER → 2023-08-10 | Outpatient (REF) | payer MEDICARE, OTHER ==
[2023-08-10 18:23] LABS: RSV AMPLIFICATION NEGATIVE (NEGATIVE)
== END ==
LOC: M SFHCCLAY 11:23
PROVIDERS: ATTEND Physician Assistant
DX: B34.9 Viral infection, unspecified (principal)

== ENCOUNTER → 2023-10-09 | Outpatient (REF) | payer MEDICARE, OTHER ==
[~2023-10-09] MED LIST changes: +ESOM1CAP20 PO; -ESOM1CAP5 PO; +ONDA-282 PO; -ONDA4TAB6 PO
[2023-10-09 18:04] LABS: BASO % 0.5 % (0.0-1.0); EOS # 0.2 10^3/uL (0.0-0.5); EOS % 2.6 % (0.0-3.0); HEMATOCRIT 28.5 % (42.0-52.0); HEMOGLOBIN 8.8 g/dl (13.5-17.5); LYMPH # 2.6 10^3/uL (1.5-5.0); LYMPH % 39.4 % (24.0-44.0); MEAN CORPUSCULAR HEMOGLOBIN 25.5 pg (27.0-33.0); MEAN CORPUSCULAR HGB CONC 30.9 g/dl (32.0-36.5); MEAN CORPUSCULAR VOLUME 82.6 fl (80.0-96.0); MONO # 0.7 10^3/uL (0.0-0.8); MONO % 9.9 % (2.0-8.0); NEUTROPHILS # 3.1 10^3/uL (1.5-8.5); NEUTROPHILS % 47.1 % (36.0-66.0); PLATELET COUNT, AUTOMATED 256 10^3/uL (150-450); RED BLOOD COUNT 3.45 10^6/uL (4.30-6.10); WHITE BLOOD COUNT 6.7 10^3/uL (4.0-10.0)
[2023-10-09 18:37] LABS: IRON (FE) 14 UG/DL (65-175); PERCENT SATURATION 3.1 % (19.7-50.0); TOTAL IRON BINDING CAPACITY 445 UG/DL (250-425)
[2023-10-09 18:38] LABS: ALBUMIN 3.3 G/DL (3.2-5.2); ALKALINE PHOSPHATASE 67 U/L (46-116); ALT/SGPT 29 U/L (7.0-40); AST/SGOT 27 U/L (<34); BILIRUBIN,TOTAL 0.6 MG/DL (0.3-1.2); BLOOD UREA NITROGEN 10 MG/DL (9-23); CALCIUM LEVEL 7.2 MG/DL (8.3-10.6); CARBON DIOXIDE LEVEL 31 MMOL/L (20-31); CHLORIDE LEVEL 103 MMOL/L (98-107); CREATININE FOR GFR 0.73 MG/DL (0.70-1.30); GLOMERULAR FILTRATION RATE > 60.0 (>42); GLUCOSE, FASTING 108 MG/DL (74-106); POTASSIUM SERUM 3.9 MMOL/L (3.5-5.1); SODIUM LEVEL 138 MMOL/L (136-145); TOTAL PROTEIN 6.4 G/DL (5.7-8.2)
[2023-10-09 18:39] LABS: FERRITIN 11.6 NG/ML (10.5-307.3); THYROID STIMULATING HORMONE 0.171 uIU/ML (0.55-4.78)
== END ==
LOC: M SFHCCLAY 11:22
PROVIDERS: ATTEND Physician Assistant
DX: R53.1 Weakness (principal); D50.9 Iron deficiency anemia, unspecified

== ENCOUNTER 2023-10-19 14:53 | Emergency (ER) | payer MEDICARE, OTHER ==
[~2023-10-19] VITALS: Ht 162.6 cm; Wt 83.2 kg
[2023-10-19 15:30] LABS: BASO # 0.1 10^3/uL (0.0-0.2); BASO % 0.7 % (0.0-1.0); EOS # 0.1 10^3/uL (0.0-0.5); EOS % 1.4 % (0.0-3.0); HEMATOCRIT 26.6 % (42.0-52.0); HEMOGLOBIN 8.2 g/dl (13.5-17.5); LYMPH # 2.6 10^3/uL (1.5-5.0); LYMPH % 31.6 % (24.0-44.0); MEAN CORPUSCULAR HEMOGLOBIN 24.8 pg (27.0-33.0); MEAN CORPUSCULAR HGB CONC 30.8 g/dl (32.0-36.5); MEAN CORPUSCULAR VOLUME 80.6 fl (80.0-96.0); MONO # 0.8 10^3/uL (0.0-0.8); MONO % 9.7 % (2.0-8.0); NEUTROPHILS # 4.7 10^3/uL (1.5-8.5); NEUTROPHILS % 55.9 % (36.0-66.0); PLATELET COUNT, AUTOMATED 283 10^3/uL (150-450); WHITE BLOOD COUNT 8.4 10^3/uL (4.0-10.0)
[2023-10-19 15:41] LABS: INR 1.25; PROTHROMBIN TIME 15.4 SECONDS (12.5-14.5)
[2023-10-19 16:03] LABS: BLOOD UREA NITROGEN 10 MG/DL (9-23); CALCIUM LEVEL 7.5 MG/DL (8.3-10.6); CARBON DIOXIDE LEVEL 28 MMOL/L (20-31); CHLORIDE LEVEL 103 MMOL/L (98-107); CK-MB VALUE MASS < 1.0 NG/ML (<3.6); CPK CREATINE PHOSPHOKINASE 89 U/L (46-171); CREATININE FOR GFR 0.66 MG/DL (0.70-1.30); DIGOXIN LEVEL 0.4 NG/ML (0.8-2.0); GLOMERULAR FILTRATION RATE > 60.0 (>42); GLUCOSE, FASTING 135 MG/DL (74-106); MAGNESIUM LEVEL 1.5 MG/DL (1.8-2.4); MB/CK RELATIVE INDEX 1.12 (< OR =4); SODIUM LEVEL 138 MMOL/L (136-145)
[2023-10-19 16:04] LABS: THYROID STIMULATING HORMONE 0.114 uIU/ML (0.55-4.78)
[2023-10-19 16:05] LABS: FREE T4 1.61 NG/DL (0.89-1.76)
[2023-10-19] MEDS: POTASSIUM CHLORIDE 10MEQ SR TABLET PO ONE (16:25)
[2023-10-19] MEDS: MAG SULF 1GM/100ML (MAG RUN) 1 GM in IV 1 EA IV ONE (16:26)
[2023-10-19 17:01] LABS: CK-MB VALUE MASS < 1.0 NG/ML (<3.6)
[2023-10-19 17:09] LABS: CPK CREATINE PHOSPHOKINASE 85 U/L (46-171); MB/CK RELATIVE INDEX 1.17 (< OR =4)
[2023-10-19] MEDS: LORazepam 2 MG/ML 1ML VIAL IV STA ×2 (18:51→19:00)
[2023-10-19 19:15] LABS: CK-MB VALUE MASS < 1.0 NG/ML (<3.6)
[2023-10-19 19:17] LABS: CPK CREATINE PHOSPHOKINASE 81 U/L (46-171); MB/CK RELATIVE INDEX 1.23 (< OR =4)
[2023-10-19] MEDS: NS 1,000 ML IV ONE (19:52)
[2023-10-19] MEDS: MECLIZINE 25 MG TABLET PO ONE (21:50)
[2023-10-19] MEDS ORDERED: MECL-209 PO (22:21)
[2023-10-19 22:36] VITALS: BP 119/68; TEMP 97.9; O2SAT 97
== END 2023-10-19 22:46 | disposition home or self-care (01) ==
LOC: EDBD 14:53 → M ED 14:53
DX: R42 Dizziness and giddiness (principal); I25.119 Atherosclerotic heart disease of native coronary artery with unspecified angina pectoris; I48.91 Unspecified atrial fibrillation; I10 Essential (primary) hypertension; D50.9 Iron deficiency anemia, unspecified; G47.33 Obstructive sleep apnea (adult) (pediatric); K50.90 Crohn's disease, unspecified, without complications; I25.2 Old myocardial infarction; Z88.8 Allergy status to other drugs, medicaments and biological substances; Z79.2 Long term (current) use of antibiotics; Z79.810 Long term (current) use of selective estrogen receptor modulators (SERMs); Z79.899 Other long term (current) drug therapy; Z79.52 Long term (current) use of systemic steroids
CPT/HCPCS: 70450; 70544; 70551; 71046; 80048; 80162; 82550; 82553; 83735; 84439; 84443; 84484; 85025; 85610; 85730; 93005; 93041; 94760; 96361; 96374; 96375; 99285; J2060; J3475

== ENCOUNTER → 2023-10-25 | Outpatient (REF) | payer MEDICARE, OTHER ==
[~2023-10-25] MED LIST changes: +MECL-209 PO
[2023-10-25 17:31] LABS: BASO % 0.5 % (0.0-1.0); EOS # 0.2 10^3/uL (0.0-0.5); EOS % 2.7 % (0.0-3.0); HEMATOCRIT 31.6 % (42.0-52.0); HEMOGLOBIN 9.4 g/dl (13.5-17.5); LYMPH # 1.8 10^3/uL (1.5-5.0); LYMPH % 26.8 % (24.0-44.0); MEAN CORPUSCULAR HEMOGLOBIN 25.5 pg (27.0-33.0); MEAN CORPUSCULAR HGB CONC 29.7 g/dl (32.0-36.5); MEAN CORPUSCULAR VOLUME 85.6 fl (80.0-96.0); MONO # 0.6 10^3/uL (0.0-0.8); NEUTROPHILS % 60.4 % (36.0-66.0); PLATELET COUNT, AUTOMATED 233 10^3/uL (150-450); RED BLOOD COUNT 3.69 10^6/uL (4.30-6.10); WHITE BLOOD COUNT 6.6 10^3/uL (4.0-10.0)
[2023-10-25 18:03] LABS: ALBUMIN 3.2 G/DL (3.2-5.2); ALKALINE PHOSPHATASE 86 U/L (46-116); ALT/SGPT 27 U/L (7.0-40); AST/SGOT 22 U/L (<34); BILIRUBIN,TOTAL 0.6 MG/DL (0.3-1.2); BLOOD UREA NITROGEN 11 MG/DL (9-23); CALCIUM LEVEL 7.2 MG/DL (8.3-10.6); CARBON DIOXIDE LEVEL 30 MMOL/L (20-31); CHLORIDE LEVEL 107 MMOL/L (98-107); CREATININE FOR GFR 0.71 MG/DL (0.70-1.30); FERRITIN 236.1 NG/ML (10.5-307.3); GLOMERULAR FILTRATION RATE > 60.0 (>42); GLUCOSE, FASTING 115 MG/DL (74-106); IRON (FE) 41 UG/DL (65-175); PERCENT SATURATION 10.7 % (19.7-50.0); POTASSIUM SERUM 3.8 MMOL/L (3.5-5.1); SODIUM LEVEL 141 MMOL/L (136-145); TOTAL IRON BINDING CAPACITY 382 UG/DL (250-425); TOTAL PROTEIN 6.4 G/DL (5.7-8.2)
== END ==
LOC: M SFHCCLAY 09:37
PROVIDERS: ATTEND Physician Assistant
DX: E83.51 Hypocalcemia (principal); D50.9 Iron deficiency anemia, unspecified

== ENCOUNTER → 2023-11-29 | Outpatient (REF) | payer MEDICARE, OTHER ==
[2023-11-29 18:34] LABS: PERCENT SATURATION 3.7 % (19.7-50.0)
[2023-11-29 18:37] LABS: FERRITIN 18.9 NG/ML (10.5-307.3)
== END ==
LOC: M LABDRAWC 17:03
PROVIDERS: ATTEND Internal Medicine Cardiovascular Disease
DX: D50.0 Iron deficiency anemia secondary to blood loss (chronic) (principal)

== ENCOUNTER → 2024-02-13 | Outpatient (REF) | payer MEDICARE, OTHER ==
[2024-02-13 17:53] LABS: IRON (FE) 68 UG/DL (65-175)
[2024-02-13 17:54] LABS: FREE T4 1.55 NG/DL (0.89-1.76)
[2024-02-13 17:55] LABS: ALBUMIN 3.6 G/DL (3.2-5.2); ALKALINE PHOSPHATASE 103 U/L (40-129); ALT/SGPT 31 U/L (7.0-40); AST/SGOT 25 U/L (<34); BILIRUBIN,TOTAL 0.8 MG/DL (0.3-1.2); BLOOD UREA NITROGEN 10 MG/DL (9-23); CALCIUM LEVEL 6.6 MG/DL (8.3-10.6); CARBON DIOXIDE LEVEL 31 MMOL/L (20-31); CHLORIDE LEVEL 107 MMOL/L (98-107); CHOLESTEROL LEVEL 137 MG/DL (<200); CHOLESTEROL RISK RATIO 3.69 (<5); CREATININE FOR GFR 0.66 MG/DL (0.70-1.30); GLOMERULAR FILTRATION RATE > 60.0 (>42); GLUCOSE, FASTING 116 MG/DL (74-106); HDL CHOLESTEROL 37.1 MG/DL (>40); LDL CHOLESTEROL 78.9 MG/DL (<100); MAGNESIUM LEVEL 1.8 MG/DL (1.8-2.4); NON-HDL-C 99.9 MG/DL; POTASSIUM SERUM 3.9 MMOL/L (3.5-5.1); SODIUM LEVEL 143 MMOL/L (136-145); THYROID STIMULATING HORMONE 0.756 uIU/ML (0.55-4.78); TOTAL PROTEIN 6.9 G/DL (5.7-8.2); TRIGLYCERIDES LEVEL 105 MG/DL (<150)
[2024-02-13 18:03] LABS: HEMATOCRIT 36.5 % (42.0-52.0); HEMOGLOBIN 11.1 g/dl (13.5-17.5); MEAN CORPUSCULAR HEMOGLOBIN 25.3 pg (27.0-33.0); MEAN CORPUSCULAR HGB CONC 30.4 g/dl (32.0-36.5); MEAN CORPUSCULAR VOLUME 83.3 fl (80.0-96.0); PLATELET COUNT, AUTOMATED 249 10^3/uL (150-450); RED BLOOD COUNT 4.38 10^6/uL (4.30-6.10); WHITE BLOOD COUNT 5.3 10^3/uL (4.0-10.0)
[2024-02-13 18:18] LABS: HEMOGLOBIN A1c 5.2 % (4.0-6.0)
== END ==
LOC: M SFHCCLAY 11:14
PROVIDERS: ATTEND Family Medicine
DX: D50.9 Iron deficiency anemia, unspecified (principal); E03.9 Hypothyroidism, unspecified; E83.51 Hypocalcemia; K21.9 Gastro-esophageal reflux disease without esophagitis; R73.01 Impaired fasting glucose

== ENCOUNTER → 2024-02-13 | Outpatient (REF) | payer MEDICARE, OTHER ==
[2024-02-13 17:21] LABS: PERCENT SATURATION 17.1 % (19.7-50.0)
[2024-02-13 20:05] LABS: BASO % 0.8 % (0.0-1.0); EOS # 0.1 10^3/uL (0.0-0.5); EOS % 1.5 % (0.0-3.0); HEMATOCRIT 36.4 % (42.0-52.0); HEMOGLOBIN 11.1 g/dl (13.5-17.5); LYMPH # 1.8 10^3/uL (1.5-5.0); LYMPH % 33.8 % (24.0-44.0); MEAN CORPUSCULAR HEMOGLOBIN 25.6 pg (27.0-33.0); MEAN CORPUSCULAR HGB CONC 30.5 g/dl (32.0-36.5); MEAN CORPUSCULAR VOLUME 84.1 fl (80.0-96.0); MONO # 0.6 10^3/uL (0.0-0.8); MONO % 11.9 % (2.0-8.0); NEUTROPHILS # 2.7 10^3/uL (1.5-8.5); NEUTROPHILS % 51.4 % (36.0-66.0); PLATELET COUNT, AUTOMATED 239 10^3/uL (150-450); RED BLOOD COUNT 4.33 10^6/uL (4.30-6.10); WHITE BLOOD COUNT 5.3 10^3/uL (4.0-10.0)
[2024-02-13 21:57] LABS: PLATELET ESTIMATE NORMAL (NORMAL)
[2024-02-13 21:59] LABS: OVALOCYTES 2+; SCHISTOCYTES 1+
[2024-02-13 22:00] LABS: ANISOCYTOSIS 1+; MICROCYTOSIS 1+; POIKILOCYTOSIS 2+
== END ==
LOC: M LABDRAWC 16:41
PROVIDERS: ATTEND Internal Medicine Cardiovascular Disease
DX: D50.0 Iron deficiency anemia secondary to blood loss (chronic) (principal)

== ENCOUNTER → 2024-04-22 | Outpatient (REF) | payer MEDICARE, OTHER ==
[2024-04-22 12:09] LABS: HEMATOCRIT 41.2 % (42.0-52.0); MEAN CORPUSCULAR HEMOGLOBIN 29.2 pg (27.0-33.0); PLATELET COUNT, AUTOMATED 168 10^3/uL (150-450); RED BLOOD COUNT 4.79 10^6/uL (4.30-6.10); WHITE BLOOD COUNT 6.6 10^3/uL (4.0-10.0)
[2024-04-22 12:39] LABS: FREE T4 1.37 NG/DL (0.89-1.76); THYROID STIMULATING HORMONE 0.201 uIU/ML (0.55-4.78)
== END ==
LOC: M SFHCCLAY 09:21
PROVIDERS: ATTEND Family Medicine
DX: D50.9 Iron deficiency anemia, unspecified (principal); E89.0 Postprocedural hypothyroidism

== ENCOUNTER → 2024-07-17 | Outpatient (REF) | payer MEDICARE, OTHER ==
[2024-07-17 18:30] LABS: PERCENT SATURATION 38.2 % (19.7-50.0)
== END ==
LOC: M LAB REF 17:00
PROVIDERS: ATTEND Internal Medicine Nephrology
DX: D50.9 Iron deficiency anemia, unspecified (principal)

== ENCOUNTER → 2025-01-15 | Outpatient (REF) | payer MEDICARE, OTHER ==
[2025-01-15 18:34] LABS: PLATELET COUNT, AUTOMATED 205 10^3/uL (150-450)
== END ==
LOC: M SFHCCLAY 10:29
PROVIDERS: ATTEND Family Medicine
DX: D50.9 Iron deficiency anemia, unspecified (principal)